=== PATIENT | female | born 1960 | race Caucasian/White ===

== ENCOUNTER 2020-09-22 10:03 | Outpatient (REF) | payer MEDICARE, MEDICAID, SELFPAY | END 2020-09-22 10:04 | disposition home or self-care (01) | LOC: HO.HAP 10:03 | PROVIDERS: PCP Nurse Practitioner Family; Visit Provider Nurse Practitioner Family | DX: Z46.1 Encounter for fitting and adjustment of hearing aid (principal) | CPT/HCPCS: V5266 ==

== ENCOUNTER 2020-11-10 12:58 | Outpatient (REF) | payer MEDICARE, MEDICAID, SELFPAY ==
--- NOTE | ~2020-11-10 | US_ITS ---
EXAMINATION: US RETROPERITONEAL LIMITED (RENAL ONLY) CLINICAL INFORMATION: Calculus of kidney. COMPARISON: Renal ultrasound 10/07/2019 and 08/26/2018 TECHNIQUE: Real-time imaging of the kidneys. FINDINGS: RIGHT KIDNEY: 9.0 x 4.2 x 4.6 cm (SAG x AP x TRV). The kidney is normal in size, contour, and echogenicity. Renal cortical thickness is normal. Lower pole 4 x 3 x 3 mm echogenic focus seen consistent with a stone. No focal parenchymal lesions or hydronephrosis. LEFT KIDNEY: 10.0 x 5.0 x 4.6 cm (SAG x AP x TRV). The kidney is normal in size, contour, and echogenicity. Renal cortical thickness is normal. No renal calculi or hydronephrosis. An upper pole 2.5 x 2.1 x 1.9 cm cyst is noted. No solid mass is seen. US/US renal BI IMPRESSION: 1. Nonobstructing right lower pole renal calculus. 2. Benign left upper pole renal cyst. 3. Findings are not significantly changed when compared to the prior study.
== END 2020-11-10 12:59 | disposition home or self-care (01) ==
LOC: HO.US 12:58
PROVIDERS: PCP Nurse Practitioner Family; Visit Provider Urology
DX: N20.0 Calculus of kidney (principal)
CPT/HCPCS: 76775

== ENCOUNTER → 2020-12-07 15:34 | Outpatient (BNVA) | payer MEDICARE, MEDICAID, SELFPAY | PROVIDERS: Visit Provider Urology | DX: Z13.89 Encounter for screening for other disorder (principal) | CPT/HCPCS: 99212 ==

== ENCOUNTER 2021-06-09 10:28 | Outpatient (REF) | payer MEDICARE, MEDICAID, SELFPAY ==
--- NOTE | ~2021-06-09 | US_ITS ---
EXAMINATION: US RETROPERITONEAL LIMITED (RENAL ONLY) CLINICAL INFORMATION: Calculus of kidney. COMPARISON: Renal ultrasound 11/10/2020 and 10/07/2019. TECHNIQUE: Real-time imaging of the kidneys. FINDINGS: RIGHT KIDNEY: 8.6 x 4.4 x 5.5 cm (SAG x AP x TRV). The kidney is normal in size, contour, and echogenicity. Renal cortical thickness is normal. No focal parenchymal lesions or hydronephrosis. 3 mm nonobstructing calculus in the lower pole. LEFT KIDNEY: 10.1 x 5.2 x 5.0 cm (SAG x AP x TRV). The kidney is normal in size, contour, and echogenicity. Renal cortical thickness is normal. No renal calculi or hydronephrosis. 2.1 cm simple cyst in the left upper kidney. No imaging follow-up is recommended. US/US renal BI IMPRESSION: Unchanged 3 mm nonobstructing calculus in the lower right kidney. No hydronephrosis.
== END 2021-06-09 10:29 | disposition home or self-care (01) ==
LOC: HO.HMGCX 10:28
PROVIDERS: PCP Internal Medicine; Visit Provider Urology
DX: N20.0 Calculus of kidney (principal)
CPT/HCPCS: 76775

== ENCOUNTER → 2021-06-17 09:25 | Outpatient (BNVA) | payer MEDICARE, MEDICAID, SELFPAY | PROVIDERS: PCP Internal Medicine; Visit Provider Urology | DX: R39.15 Urgency of urination (principal); N20.0 Calculus of kidney | CPT/HCPCS: Q3014 ==

== ENCOUNTER 2021-12-08 08:30 | Outpatient (RCR) | payer MEDICARE, MEDICAID, SELFPAY ==
--- NOTE | 2021-10-25 10:30 | PC.NURSE ---
On 10/24/21, spoke with person and they report that they cannot start PHP groups this week due to services. They also indicate that their child has a medical problem and is scheduled for surgery in [place]. She is interested in beginning PHP services the week of 11/22/21. Therefore, we scheduled an intake/assessment on 11/22/2021 @ 11Am to begin admission to [facility]. Madelaine Yost
[2021-11-23 12:39] VITALS: BMI 23.4
--- NOTE | 2021-11-23 13:06 | PC.ADMIT ---
Patient is a 61 year old female who was referred to PHP by Dr Carrasco after consulting with patient regarding TMS treatment. Patient reports struggling with depression with SI denied plan or intent, increased anxiety, and periodic agitation and irritability. Feeling overwhelmed. 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 Reports increase in symptoms in August and September after being dx with Covid in July. Patient reports she had the Covid Vaccine and has been boosted and reports she does not understand how she still got Covid. Patient reports having SI has scared her. Reports protective factors are her 2 nieces who she lives with and has helped to take care of them since infancy. Patient reports she is taking Cymbalta on and off. Last took on Sunday. Medication education provided. Patient also not taking HCTZ and Potassium Citrate consistently. Tracy Anne NP PHP prescriber is aware. Patient is alert and oriented x4. Calm and cooperative. Presented with depressed mood and affect. Denied SI at present. Medications reconciled with patient and patient's pharmacy.
--- NOTE | 2021-11-23 15:09 | P.HPPSP_ITS ---
HPI Date of Service: 11/23/21 Chief Complaint: depression,anxiety Sources of Information: patient interviewed, chart reviewed and crisis/core team assessment reviewed HPI Medical Problems Affecting Mental Status: No Narrative: Patient is a 61-year-old single female, referred to PHP via Dr. León Carrasco at [facility] TMS office. She had presented there for consultation for TMS, due to depressed mood, with worsening symptoms. She had also reported periods of agitation, irritability, feeling overwhelmed, and in despair. Denies any manic symptoms, however has had episodes of experiencing agitated depression, with irritability, anxiety, and insomnia, without any physical hyperactivity. Has had medication trials, without success. Some medications worked for some time, and then would ?stop working . Her primary care provider has kept her on duloxetine 90 mg daily. However, patient states that she takes this medication intermittently, and not on a daily basis. She states that she last took it 3 days ago, and that she has been taking it 3-4 times per week rather than daily. Patient reports being raised in an orphanage until age 13, when she was adopted. 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 She lives with her sister, who has adopted to special needs children that require lot of care. She states that this has caused her stress, and that she feels taken advantage of at times. She reports passive SI at times, when feeling overwhelmed. Patient experienced COVID in July of this year, and soon afterwards noticed an increase in her symptoms of depression. Has multiple medical issues, including diabetes, asthma, Clarisa's, premature atrial contractions, kidney issues. Has cochlear implant. Past Psychiatric History: Medication trials: Wellbutrin, Celexa, Paxil, sertraline, nortriptyline, amitriptyline. Reports did well for years with Wellbutrin and Cymbalta. Currently receives Cymbalta 90 mg daily (not taking consistently). No hx IPLOC, PHP, respite. No current therapist, no psychiatric provider/prescriber. Medical Evaluation Reviewed: Yes [facility] Medical History Asthma BPES syndrome Gastroesophageal reflux disease Hypothyroidism IBS (irritable bowel syndrome) Renal stones Status post placement of bone anchored hearing aid (BAHA) Type II diabetes mellitus Surgical History H/O total hysterectomy History of bilateral knee replacement Family History: Mother history of depression and anxiety. Unclear if this is bio-mother or adoptive mother. Her sister has history of depression Social History: Born to a 16-year-old mother, who placed her up for adoption. Placed at right side. Adopted at age 13. Met developmental milestones as expected, graduated [employer], college. 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 Patient not . Has helped raise her nieces that her sister adopted, they have lived together for many years. Both knees is have special needs, require care. 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 Substance History: Occasional alcohol use, socially. Trauma History: Victim, medical trauma r/t congenital syndrome which has affected facial features and bones. Diagnostics Vital Signs (24Hr): BMI result Body Mass Index 23.4 Meds/Allergies Meds Home Medications Medication Instructions Recorded Confirmed Type atenolol 25 mg tablet 25 mg PO DAILY 06/17/21 11/23/21 History blood sugar diagnostic (FreeStyle #10 ea 06/17/21 History Lite Strips) budesonide-formoterol HFA 160 2 puff inhalation BID 06/17/21 11/23/21 History mcg-4.5 mcg/actuation aerosol inhaler (Symbicort) gabapentin 600 mg tablet 600 mg PO BID 06/17/21 11/23/21 History hydrochlorothiazide 25 mg tablet 25 mg PO BID 06/17/21 History ibandronate 150 mg tablet 150 mg PO QMONTH 06/17/21 11/23/21 History levothyroxine 88 mcg tablet 88 mcg PO DAILY 06/17/21 11/23/21 History (Synthroid) montelukast 10 mg tablet 10 mg PO DAILY 06/17/21 11/23/21 History cholecalciferol (vitamin D3) 25 25 mcg PO DAILY 11/23/21 11/23/21 History mcg (1,000 unit) tablet (Vitamin D3) famotidine 20 mg tablet 20 mg PO BID 11/23/21 11/23/21 History metformin 500 mg tablet 500 mg PO BID 11/23/21 11/23/21 History potassium citrate 10 mEq (1,080 10 meq PO DAILY 11/23/21 History mg) tablet,extended release potassium citrate 10 mEq (1,080 20 meq PO BEDTIME 11/23/21 11/23/21 History mg) tablet,extended release Allergies Allergies Allergy/AdvReac Type Severity Reaction Status Date / Time acetaminophen [Percocet] Allergy Unknown hives Verified 06/17/21 09:27 codeine Allergy Unknown hives Verified 06/17/21 09:27 hydrocodone [Vicodin] Allergy Unknown hives Verified 06/17/21 09:27 levofloxacin [Levaquin] Allergy Unknown hives Verified 06/17/21 09:27 morphine Allergy Unknown Unknown Verified 06/17/21 09:27 oxycodone [Percocet] Allergy Unknown hives Verified 06/17/21 09:27 Sulfa (Sulfonamide Allergy Unknown hives Verified 06/17/21 09:27 Antibiotics) bandaging tape Allergy Unknown redness Uncoded 06/17/21 09:27 and itching Tylox Allergy Unknown hives Uncoded 06/17/21 09:27 Mental Status Exam Mental Status Exam Narrative: Well-developed, well-nourished female, in NAD. Appears stated age. No perceptual disturbances noted. No abnormal movements, tics or tremors. Ambulation not observed. Patient was fully attentive during interview. Patient Appearance: Appropriate Patient Orientation: Person, Place, Time and Situation Level of Consciousness: Appropriate Patient Behavior: Appropriate, Guarded and Good Eye Contact Mood Description: Depressed and Anxious Affect Description: Constricted, Depressed and Anxious Patient Cognition Impaired: No Ability to Follow Directions: Good Speech Pattern: Clear, Appropriate and Coherent Memory Description: Intact Hallucinations: None Delusions: Not Present Thought Content: positive for Intact and positive for Suicidal Ideation (Passive, no intent or plan.) Depressive Symptoms: Increased Anxiety, Increased Irritability, Difficulty Sleeping, Loss of Int. in Activity, Hopelessness and Thoughts of /Suicide Judgement: Fair Telehealth Telehealth Location of provider rendering services: practice address Location of patient: address on file Patient Identification confirmed using: Name, : Yes Telehealth method: video Patient verbally consented to treatment: Yes Patient verbally consented to billing insurance company: Yes Patient informed of any privacy concerns related to visit: Yes Minutes spent on Phone/Video with Pt.: 45 Assessment & Plan Assessment & Plan (1) Major depressive disorder, recurrent severe without psychotic features: Status: Acute Code(s): F33.2 - Major depressive disorder, recurrent severe without psychotic features Assessment and Plan: The patient has experienced symptoms of depression and anxiety since college. Has tried multiple medications. Reports that some medications have worked for some time, and then apparently stopped working. Reports sensitivity to med ications, with multiple side effects at times. Currently has medical concerns,including post COVID, diabetes, asthma, Clarisa's, kidney issues, premature atrial contractions, which she states are due to an asthma medication. She had consultation in October of this year at [facility] for TMS. At that time she was referred to this program, with suggestion of completing this program prior to initiate being TMS therapy. She reports that she has not been taking prescribe Cymbalta daily, but rather 3-4 times per week. Last dose was taken on 11/20/2021. A discussion ensued regarding medication options, risks and benefits, alternatives. Patient is agreeable to taking Cymbalta 90 mg daily for the next 7 days. At that time during our next visit, we can assess together whether or not she is to remain at 90 mg daily, or possible dose increase to 120 mg daily. At this time, we will hold off on adding any new medications, due to sensitivity to side effects, and uncertainty as to efficacy of Cymbalta, as he has not been taking daily. She was in complete agreement with this plan. She does have some passive SI, but reports that she has no intent or plan in any way whatsoever. She was agreeable to calling crisis and notifying us if this changes in any way. No safety concerns at this time. (2) ROSANA (generalized anxiety disorder): Status: Acute Code(s): F41.1 - Generalized anxiety disorder Plan 1. Continue with current [facility] plan of care. 2. Continue with current medication regimen. Seven day supply of Cymbalta 90 mg sent to pharmacy. 3. Follow-up as per protocol. Patient educated on: diagnosis, medication risk/benefits and therapeutic strategies Informed Consent: understands Reason for continued partial hosp. stay Substantial Risk for: harm to self, inability to function, rapid decompensation and med/psych decompensation Certification I certify that partial hospital treatment is medically necessary due to the symptoms and problems resulting from the patient's mental illness and the failure to treat the patient at the partial hospital level of care would likely result in the patient requiring inpatient psychiatric care which could not be prevented at a less intensive level of care.
--- NOTE | 2021-11-24 16:34 | PC.NURSE ---
Case opened in treatment team.
--- NOTE | 2021-11-25 15:58 | PC.NURSE ---
I called and spoke to pt. Reviewed treatment plan and discussed aftercare plans and tentative discharge date (12/08/2021). Pt reported feeling better emotionally since starting the program, and said she fallon been suing learned coping skills with some success.
--- NOTE | 2021-11-29 12:09 | P.PNPSP_ITS ---
Subjective Subjective Date of Service: 11/29/21 Reason For Visit: depression,anxiety Medical Problems Affecting Mental Status: No Interim History: Describes mood as ?relaxed ?. No SI/HI, no safety concerns. Feels some improvement regarding depression and anxiety symptoms, has taken duloxetine daily as prescribed. Less irritable. Finding program groups to be helpful. Medication Compliance: Yes Side effects from medications: No Attending Groups: Yes Review of Systems Acute medical concerns: No Medical Review of Systems: unchanged Review of Systems Review of Systems Yes all other systems are reviewed and are negative Constitutional: Reports no additional constitutional complaints Mental Status Exam Mental Status Exam Narrative: NAD Patient Appearance: Appropriate Patient Orientation: Person, Place, Time and Situation Level of Consciousness: Appropriate Patient Behavior: Appropriate, Cooperative and Good Eye Contact Mood Description: Calm Affect Description: Appropriate, Depressed (appears improving) and Anxious (lessened ) Patient Cognition Impaired: No Ability to Follow Directions: Excellent Speech Pattern: Clear, Appropriate and Coherent Memory Description: Intact Hallucinations: None Delusions: Not Present Thought Content: positive for Intact Depressive Symptoms: Increased Anxiety and Loss of Int. in Activity Judgement: Fair Diagnostics Vital Signs (24Hr): BMI result Body Mass Index 23.4 Assessment & Plan Assessment & Plan (1) Major depressive disorder, recurrent severe without psychotic features: Status: Acute Code(s): F33.2 - Major depressive disorder, recurrent severe without psychotic features Assessment and Plan: Describes mood as ?relaxed ?. No SI/HI, no safety concerns. Feels some improvement regarding depression and anxiety symptoms, has taken duloxetine daily as prescribed. Had a birthday libertarian for nieces over the weekend, says was able to relax and enjoy the day. Says was able to shrug off any negative comments, and not take them personally. Working to not worry about the little things . Less irritable, states I am not agitated like I was was . Finding program groups to be helpful. We discussed current dose of duloxetine. Discussed keeping it at this dose for now, as she had not been taking it consistently up until last week. She is in agreement to keep it at this dose for time being. No side effects reported. She reports that she has enough duloxetine at home, does not need a refill yet for the 90 mg daily. She says that she will be seeing a psychiatric provider after leaving program, then possibly will need a script upon discharge from here so that she does not run out prior to that appointment. (2) ROSANA (generalized anxiety disorder): Status: Acute Code(s): F41.1 - Generalized anxiety disorder Plan 1. Continue with current [facility] plan of care. 2. Patient to continue with current medication regimen as prescribed. Has supply at home, does not need a refill yet of duloxetine. 3. Follow-up as per protocol. Patient educated on: diagnosis, medication risk/benefits and therapeutic strategies Informed Consent: understands Reason for contiued partial hosp. stay Substantial Risk for: inability to function, rapid decompensation and med/psych decompensation Certification I certify that partial hospital treatment is medically necessary due to the symptoms and problems resulting from the patient's mental illness and the failure to treat the patient at the partial hospital level of care would likely result in the patient requiring inpatient psychiatric care which could not be prevented at a less intensive level of care. I spent minutes with the patient and/or on the patient floor today, greater than?50% of which was spent counseling/coordinating care. Discharge Plan Discharge Attending provider: Honorio Escobedo Medications: New duloxetine [Cymbalta] 60 mg capsule,delayed release(DR/EC) 60 mg PO DAILY 7 Days Qty: 7 0RF duloxetine [Cymbalta] 30 mg capsule,delayed release(DR/EC) 30 mg PO DAILY 7 Days Qty: 7 0RF Rx Instructions: take duloxetine 30mg daily with duloxetine 60mg daily, for TOTAL daily dose of 90mg. No Action oxybutynin chloride 5 mg tablet extended release 24hr 5 mg PO DAILY 30 Days Qty: 90 3RF metformin 500 mg Tablet 500 mg PO BID famotidine 20 mg Tablet 20 mg PO BID potassium citrate 10 mEq (1,080 mg) Tablet Extended Release 10 meq PO DAILY Label Comments: Patient stated she has been missing doses however is still taking this medication. potassium citrate 10 mEq (1,080 mg) Tablet Extended Release 20 meq PO BEDTIME Label Comments: patient stated she takes 1080 mg 1 tab in the am and 2 tabs at HS. Does not take consistently. Medication education provided. cholecalciferol (vitamin D3) [Vitamin D3] 25 mcg (1,000 unit) Tablet 25 mcg PO DAILY montelukast 10 mg tablet 10 mg PO DAILY levothyroxine [Synthroid] 88 mcg tablet 88 mcg PO DAILY Label Comments: Patient reports she takes a 1/2 tab on Sundays. Rx Instructions: Takes 1/2 tab on Sunday. gabapentin 600 mg tablet 600 mg PO BID budesonide-formoterol [Symbicort] 160-4.5 mcg/actuation HFA aerosol inhaler 2 puff inhalation BID ibandronate 150 mg tablet 150 mg PO QMONTH atenolol 25 mg tablet 25 mg PO DAILY (DME) FreeStyle Lite Strips Strip See Rx Instructions Not Applicable .MEDSUPPLY Qty: 10 Rx Instructions: As directed hydrochlorothiazide 25 mg tablet 25 mg PO BID Label Comments: Patient stated she is on HCTZ 50 mg daily. Last filled 2020 for 3 month supply HCTZ 25 mg BID. Patient reports she has not been taking consisitantly. Telehealth Telehealth Location of provider rendering services: practice address Location of patient: address on file Patient Identification confirmed using: Name, : Yes Telehealth method: video Patient verbally consented to treatment: Yes Patient verbally consented to billing insurance company: Yes Patient informed of any privacy concerns related to visit: Yes Minutes spent on Phone/Video with Pt.: 15
--- NOTE | 2021-11-29 13:00 | PC.NURSE ---
At pt's request, I completed and emailed a referral for her to obtain services at [facility].
--- NOTE | 2021-12-07 13:25 | PC.NURSE ---
I emailed Melvin and central intake at [facility] to inquire about intake times for pt, as she is discharging tomorrow and I still haven't heard back from them.
--- NOTE | 2021-12-08 13:57 | PC.NURSE ---
Patient discharged from [facility] today. Patient reports much improvement in her symptoms compared to when she started the program. Reports feeling much calmer and less angry. Reports she has learned a, tremendous amount . Reviewed patient medications with patient. Appears to know what her medications are for and when to take them. Reports taking her medications as prescribed including taking 90 mg of Cymbalta daily. Reports she does not need a refill of Cymbalta prior to her new prescriber appointment on 12/27/21 as she has, plenty .
== END 2021-12-08 23:59 | disposition home or self-care (01) ==
LOC: HO.PHPA 08:30
PROVIDERS: Visit Provider Psychiatry & Neurology Psychiatry
DX: F33.2 Major depressive disorder, recurrent severe without psychotic features (principal); F41.1 Generalized anxiety disorder; Z79.899 Other long term (current) drug therapy
CPT/HCPCS: 90791; 90853

== ENCOUNTER 2022-06-06 07:57 | Outpatient (REF) | payer MEDICARE, MEDICAID, SELFPAY ==
--- NOTE | ~2022-06-06 | US_ITS ---
EXAMINATION: US RETROPERITONEAL LIMITED (RENAL ONLY) CLINICAL INFORMATION: Calculus of kidney. COMPARISON: Renal ultrasound 06/09/2021 and 11/10/2020. TECHNIQUE: Real-time imaging of the kidneys. FINDINGS: RIGHT KIDNEY: 8.8 x 4.6 x 4.2 cm (SAG x AP x TRV). The kidney is normal in size, contour, and echogenicity. Renal cortical thickness is normal. A 6 mm lower pole nonobstructing calculus is present, measuring 3 mm on 06/09/2021. No focal parenchymal lesions or hydronephrosis. LEFT KIDNEY: 9.5 x 5.4 x 3.8 cm (SAG x AP x TRV). The kidney is normal in size, contour, and echogenicity. Renal cortical thickness is normal. No renal calculi or hydronephrosis. An upper pole 2.7 cm benign simple cyst is present. US/US renal BI IMPRESSION: 1. A 6 mm nonobstructing right lower pole calculus. 2. Benign Bosniak class I left upper pole renal cyst. No followup is necessary.
== END 2022-06-06 07:58 | disposition home or self-care (01) ==
LOC: HO.US 07:57
PROVIDERS: PCP Internal Medicine; Visit Provider Urology
DX: N20.0 Calculus of kidney (principal)
CPT/HCPCS: 76775

== ENCOUNTER → 2022-06-16 11:19 | Outpatient (BNVA) | payer MEDICARE, MEDICAID, SELFPAY | PROVIDERS: PCP Internal Medicine; Visit Provider Urology | DX: N20.0 Calculus of kidney (principal); R39.15 Urgency of urination | CPT/HCPCS: Q3014 ==

== ENCOUNTER 2022-11-16 14:15 | Outpatient (REF) | payer MEDICARE, MEDICAID, SELFPAY | END 2022-11-16 14:16 | disposition home or self-care (01) | LOC: HO.HAP 14:15 | PROVIDERS: Visit Provider Internal Medicine | DX: Z46.1 Encounter for fitting and adjustment of hearing aid (principal); H90.3 Sensorineural hearing loss, bilateral | CPT/HCPCS: V5266 ==

== ENCOUNTER 2023-01-12 13:32 | Outpatient (AMB) | payer MEDICARE, MEDICAID, SELFPAY ==
--- NOTE | 2023-01-12 13:39 | MHC.OFFVIS ---
Intake Intake Visit Reasons: 6m follow up/PVR Intake Note: Patient presents today for follow up PVR/renal stones/urgency Urology Med: potassium, solifenacin Blood Thinner: None PVR: 11ml's Legislative Aide Required: No Accompanied by: Self / Same As Patient Allergies acetaminophen [Percocet] Allergy (Unknown, Verified 01/13/23 08:07) hives codeine Allergy (Unknown, Verified 01/13/23 08:07) hives hydrocodone [Vicodin] Allergy (Unknown, Verified 01/13/23 08:07) hives levofloxacin [Levaquin] Allergy (Unknown, Verified 01/13/23 08:07) hives morphine Allergy (Unknown, Verified 01/13/23 08:07) Unknown oxycodone [Percocet] Allergy (Unknown, Verified 01/13/23 08:07) hives Sulfa (Sulfonamide Antibiotics) Allergy (Unknown, Verified 01/13/23 08:07) hives bandaging tape Allergy (Unknown, Uncoded 01/13/23 08:07) redness and itching Tylox Allergy (Unknown, Uncoded 01/13/23 08:07) hives myrbetriq Adverse Reaction (Severe, Uncoded 01/13/23 08:07) Unknown tolterodine Adverse Reaction (Severe, Uncoded 01/13/23 08:07) Blurry Vision Medication List - Last Reconciled 01/13/23 by SHARDA Palafox-CHAO albuterol sulfate 90 mcg/actuation 2 puffs inhalation QID PRN aripiprazole 5 mg PO DAILY atenolol 25 mg PO DAILY atorvastatin 40 mg PO DAILY blood sugar diagnostic (FreeStyle Lite Strips) As directed budesonide-formoterol 160-4.5 mcg/actuation (Symbicort) 2 puffs inhalation BID cholecalciferol (vitamin D3) (Vitamin D3) 25 mcg PO DAILY diclofenac sodium 75 mg PO DAILY duloxetine (Cymbalta) 30 mg PO DAILY 7 days duloxetine (Cymbalta) 60 mg PO DAILY 7 days famotidine 20 mg PO BID gabapentin 600 mg PO BID hydrochlorothiazide 25 mg PO BID ibandronate 150 mg PO QMONTH levothyroxine (Synthroid) 88 mcg PO DAILY metformin 500 mg PO BID montelukast 10 mg PO DAILY potassium citrate ER 10 mEq PO BID 90 days solifenacin (Vesicare) 10 mg PO DAILY 90 days HPI HPI Comments History of Present Illness Details Lucy is a very pleasant 62 year old female patient of Dr. Limon. She has a past medical history of asthma, BPES syndrome, GERD, hypothyroidism, IBS, depression, renal stones, and type 2 diabetes. She presents to the office today for follow-up of her ongoing urinary issues, nephrolithiasis, and renal cyst. In discussion with the patient today she reports to be doing and feeling well. She reports to be taking VESIcare 10 mg daily with somewhat good effect. However, she does report having 1-2 incontinent episodes every 1-2 months. She describes urinary urgency with episodes of incontinence if not near a bathroom. She otherwise denies hematuria, dysuria, foul smelling urine, changes to urinary stream, flank pain, fever, and or chills. She reports to be getting up 1 time per night to void and at times not at all. She has a history of failed oral therapies such as oxybutynin, tolterodine, and Myrbetriq. She reports compliance with her potassium citrate for her history of nephrolithiasis. She reports last A1c with PCP noted to be less than 6.0. In office urinalysis results reviewed with the patient today. PVR 11 mL. Discussed continuation of VESIcare verses trial Gemtesa. Discussed bladder triggers/irritants. She otherwise offers no issues or concerns at this time. PREVIOUS OFFICE NOTE: Nephrolithiasis History of small right lower pole stone Stable for number of years - minimal symptoms Current therapy - potassium citrate 10 mEq p.o. b.i.d. Imaging - 06/25 renal ultrasound 3 mm right lower pole stone, left small cyst stable - 06/26 renal ultrasound 6 mm right lower pole stone, left 2.4 cm cyst Therapeutic plan - Continue fluid intake - Interval imaging Urinary urgency Has been on number prior medications Not tolerate Myrbetriq and oxybutynin 5 mg ER PFSH Medical History Asthma BPES syndrome Gastroesophageal reflux disease Hypothyroidism IBS (irritable bowel syndrome) Major depressive disorder, recurrent severe without psychotic features Renal stones Status post placement of bone anchored hearing aid (BAHA) Type II diabetes mellitus Urgency of urination Surgical History H/O total hysterectomy History of bilateral knee replacement Social History Household Members: Family Household Members Other:: sister and two nieces Housing: Apartment Review of Systems Const Reports as per HPI Eyes Reports as per HPI ENT Reports no additional complaints Card Reports no additional complaints Resp Reports as per HPI GI Reports as per HPI Reports as per HPI Musc Reports no additional complaints Neuro Reports no additional complaints Psych Reports as per HPI Endo Reports as per HPI Physical Exam Const General: cooperative, comfortable, no acute distress, well developed, alert and awake Orientation/consciousness: patient oriented x3 Limitations: no limitations HEENT Head: Yes normal to inspection, Yes normocephalic and Yes atraumatic Ears: hearing grossly normal bilaterally Neck Neck: Yes normal visual inspection and Yes trachea midline Chest Chest palpation & inspection: normal inspection of the chest Resp Effort & Inspection: normal respiratory effort and able to speak in complete sentences Cardio Rate: regular rate GI Inspection: Yes normal to inspection General: Yes no CVA tenderness Back/Spine/Pelvis Back: no CVA tenderness Skin General skin exam: no rashes or lesions noted Neuro General: patient oriented x3 Extrem General: Yes normal to inspection Psych Appearance: grossly normal and well kempt Mental Status: mental status grossly normal Speech and movement: Normal speech and movement present and Clear speech present Affect: normal affect Attitude: cooperative Thought process: Normal thought process present Thought content: Normal thought content present Insight: Fair insight present (Psych) Judgement: Fair judgement present (Psych) Office Procedures Post Void Residual Post Residual Void Post Void Residual (PVR): 11 56843-[id number] Void Residual by ultrasound Results AMB Urinalysis, Automated UA Leukoctes 0 Steve/uL Last Edit by Maura Layne on 01/12/23 14:08 UA Nitrite Last Edit by Maura Layne on 01/12/23 14:08 UA Urobilinogen 0.2 mg/dL Last Edit by Maura Layne on 01/12/23 14:08 UA Protein 0 mg/dL Last Edit by Maura Layne on 01/12/23 14:08 UA pH 6.0 Last Edit by Maura Layne on 01/12/23 14:08 UA Blood 0 Kristian/uL Last Edit by Maura Layne on 01/12/23 14:08 UA Specific [place] 1.020 Last Edit by Maura Layne on 01/12/23 14:08 UA Ketone Last Edit by Maura Layne on 01/12/23 14:08 UA Bilirubin 0 mg/dL Last Edit by Maura Layne on 01/12/23 14:08 UA Glucose 0 mg/dL Last Edit by Maura Layne on 01/12/23 14:08 Results Reviewed Results Reviewed: Laboratory Last Values Urine pH (Auto) 6.0 01/12/23 13:41 Specific [place] (Auto) 1.020 01/12/23 13:41 Urine Protein (Auto) 0 mg/dL 01/12/23 13:41 Glucose (UA)(Auto) 0 mg/dL 01/12/23 13:41 Urine Blood (Auto) 0 Kristian/uL 01/12/23 13:41 Urine Bilirubin (Auto) 0 mg/dL 01/12/23 13:41 Urine Urobilinogen (Auto) 0.2 mg/dL 01/12/23 13:41 Leukocyte Esterase (Auto) 0 Steve/uL 01/12/23 13:41 Assessment & Plan Assessment & Plan (1) Bilateral renal stones: Code(s): N20.0 - Calculus of kidney (2) Urgency of urination: Code(s): R39.15 - Urgency of urination (3) Renal cyst: Code(s): N28.1 - Cyst of kidney, acquired Plan In office urinalysis results reviewed with the patient today; as noted above. PVR 11 mL. Discussed obtaining retroperitoneal ultrasound for further assessment evaluation. Discussed importance of managing diabetes for improvement in urinary symptoms as well as overall health and well-being. Discussed trial of Gemtesa versus continuation of VESIcare. Patient with previous failed oral OAB medications. Patient would like to continue with VESIcare; prescription provided. Discussed in office cystoscopy for further assessment evaluation. Discussed bladder triggers/irritants. Follow-up in office cystoscopy Orders: Orders US retroperitoneal comp 01/12/23 N20.0 - Calculus of kidney, N28.1 - Cyst of kidney, acquired, R39.15 - Urgency of urination AMB Urinalysis Automated 01/12/23 Z13.9 - Encounter for screening, unspecified AMB Post Void Residual by ultrasound 01/12/23 R39.15 - Urgency of urination Medications: Refilled solifenacin (Vesicare) 10 mg PO DAILY 90 days 90 tabs 3RF Patient Instructions: The patient had an opportunity to ask questions regarding the treatment plan. All questions were answered. Physical exam, labs, and imaging were discussed and reviewed in detail. As well as risks, benefits, and discussion of treatment choices. No major barriers to understanding were identified. The patient expressed understanding and agreement with the above treatment plan. The patient was made aware they should contact our office by phone for worsening of their current condition, the appearance of new symptoms, or with any questions or concerns. Compliance is encouraged with any medications and follow up testing that is ordered. It is a privilege to be allowed the opportunity to participate in? your urological care.? Again, if you have any questions or concerns If you have any questions or concerns please do not hesitate to contact me. The office is [phone]. This note is constructed using voice recognition software. While every effort has been made to ensure accuracy functional consultant errors may have been included. Yours sincerely, CONNIE Palafox Coding Level of Care Code Est Pt Level 3 (06543) Diagnoses Bilateral renal stones N20.0 Urgency of urination R39.15 Renal cyst N28.1 CPT Codes Post Residual Void - PVR CPT Code: 46298-Jtrd Void Residual by ultrasound ([id number])
== END 2023-01-12 14:39 | disposition home or self-care (01) ==
PROVIDERS: Visit Provider Nurse Practitioner Family
DX: N20.0 Calculus of kidney (principal); R39.15 Urgency of urination; N28.1 Cyst of kidney, acquired
CPT/HCPCS: 99213

== ENCOUNTER → 2023-01-12 13:32 | Outpatient (BNVA) | payer MEDICARE, MEDICAID, SELFPAY | PROVIDERS: Visit Provider Nurse Practitioner Family | DX: N28.1 Cyst of kidney, acquired (principal); N20.0 Calculus of kidney; R39.15 Urgency of urination; Z79.899 Other long term (current) drug therapy | CPT/HCPCS: 51798; 99212 ==

== ENCOUNTER 2023-02-12 10:21 | Outpatient (REF) | payer MEDICARE, MEDICAID, SELFPAY ==
--- NOTE | ~2023-02-12 | US_ITS ---
EXAMINATION: US RETROPERITONEAL COMPLETE (RENAL) CLINICAL INFORMATION: Calculus of kidney. COMPARISON: Ultrasound retroperitoneal limited (renal only) 06/06/2022 and 06/09/2021. TECHNIQUE: Real-time imaging of the kidneys and bladder. FINDINGS: RIGHT KIDNEY: 9.3 x 4.1 x 4.7 cm (SAG x AP x TRV). The kidney is normal in size, contour, and echogenicity. Renal cortical thickness is normal. No focal parenchymal lesions. 6 mm nonobstructing lower pole renal stone, previously 6 mm not significantly changed. Trace right hydronephrosis new from prior. LEFT KIDNEY: 9.1 x 4.8 x 3.5 cm (SAG x AP x TRV). The kidney is normal in size, contour, and echogenicity. Renal cortical thickness is normal. No renal calculi or hydronephrosis. Benign-appearing renal cyst measuring 2.7 cm. No follow up imaging is recommended. BLADDER: Well distended and normal. Bilateral ureteral jets are demonstrated. Prevoid bladder volume is 345.4 mL. Postvoid bladder volume is 45.7 mL. US/US retroperitoneal comp IMPRESSION: 1. Trace right hydronephrosis new from prior. 2. Stable 6 mm nonobstructing right lower pole renal stone.
== END 2023-02-12 10:22 | disposition home or self-care (01) ==
LOC: HO.US 10:21
PROVIDERS: PCP Internal Medicine; Visit Provider Nurse Practitioner Family
DX: N20.0 Calculus of kidney (principal); N28.1 Cyst of kidney, acquired; R39.15 Urgency of urination
CPT/HCPCS: 76770

== ENCOUNTER 2023-02-14 11:41 | Outpatient (REF) | payer MEDICARE, MEDICAID, SELFPAY ==
[2023-02-14 13:16] LABS: Appearance Urine Clear; Color Urine Yellow; Glucose Urine UA Negative (Negative); Leukocyte Esterase Urine Negative (Negative); Nitrite Urine Negative (Negative); Urine Blood Negative (Negative); Urine Ketones Negative (Negative); Urine Protein Negative (Neg-Trace)
[2023-02-14 13:19] LABS: Bacteria Urine None Seen (None Seen); Hyaline Casts Urine 0-2 /LPF (0-2); RBC Urine 0-2 /HPF (0-2); Squamous Epithelial Cell Urine 0-2 /HPF (0-2); WBC Urine 0-5 /HPF (0-5)
== END 2023-02-14 11:42 | disposition home or self-care (01) ==
LOC: HO.LAB 11:41
PROVIDERS: PCP Internal Medicine; Visit Provider Nurse Practitioner Family
DX: N20.0 Calculus of kidney (principal)
CPT/HCPCS: 81001; 87086

== ENCOUNTER 2023-02-16 08:27 | Outpatient (AMB) | payer MEDICARE, MEDICAID, SELFPAY ==
--- NOTE | 2023-02-16 08:29 | A.OFFVIS_ITS ---
Intake Intake Visit Reasons: cysto Intake Note: Pt seen in office today for cystoscopy procedure Dental Ceramist Assistant Required: No Accompanied by: Self / Same As Patient Allergies acetaminophen [Percocet] Allergy (Unknown, Verified 02/16/23 08:40) hives codeine Allergy (Unknown, Verified 02/16/23 08:40) hives hydrocodone [Vicodin] Allergy (Unknown, Verified 02/16/23 08:40) hives levofloxacin [Levaquin] Allergy (Unknown, Verified 02/16/23 08:40) hives morphine Allergy (Unknown, Verified 02/16/23 08:40) Unknown oxycodone [Percocet] Allergy (Unknown, Verified 02/16/23 08:40) hives Sulfa (Sulfonamide Antibiotics) Allergy (Unknown, Verified 02/16/23 08:40) hives bandaging tape Allergy (Unknown, Uncoded 02/16/23 08:40) redness and itching Tylox Allergy (Unknown, Uncoded 02/16/23 08:40) hives myrbetriq Adverse Reaction (Severe, Uncoded 02/16/23 08:40) Unknown tolterodine Adverse Reaction (Severe, Uncoded 02/16/23 08:40) Blurry Vision Medication List - Last Reconciled 02/16/23 by Padmini Buenrostro MD albuterol sulfate 90 mcg/actuation 2 puffs inhalation QID PRN amoxicillin-pot clavulanate 500-125 mg (Augmentin) 1 tab PO BID aripiprazole 5 mg PO DAILY atenolol 25 mg PO DAILY atorvastatin 40 mg PO DAILY blood sugar diagnostic (FreeStyle Lite Strips) As directed budesonide-formoterol 160-4.5 mcg/actuation (Symbicort) 2 puffs inhalation BID cholecalciferol (vitamin D3) (Vitamin D3) 25 mcg PO DAILY diclofenac sodium 75 mg PO DAILY duloxetine (Cymbalta) 30 mg PO DAILY 7 days duloxetine (Cymbalta) 60 mg PO DAILY 7 days famotidine 20 mg PO BID gabapentin 600 mg PO BID hydrochlorothiazide 25 mg PO BID ibandronate 150 mg PO QMONTH levothyroxine (Synthroid) 88 mcg PO DAILY metformin 500 mg PO BID montelukast 10 mg PO DAILY potassium citrate ER 10 mEq PO BID 90 days solifenacin (Vesicare) 10 mg PO DAILY 90 days HPI HPI Comments History of Present Illness Details Lucy is a 62-year-old female who presents today to the office for a follow-up. 02/16/2023? She is followed today for cystoscopy procedure. She has seen Nurse Practitioner Giovana Gonzales on 01/12/2023 for PVR. The patient was advised to follow-up in office Cystoscopy during that time. She mentions having right flank pain. She rates that pain as 5 on a scale of 1/10. She had lithotripsy in the past for the history of kidney stones in the past. Patient has also had Cystoscopy procedure in the past. She has been taking potassium citrate 10 mEq twice a day and Vesicare 10 mg daily. I reviewed the retroperitoneum US results from 02/12/2023 revealed trace right hydronephrosis new from prior. Stable 6 mm nonobstructing right lower pole renal stone. Cystoscopy procedure: Consent was obtained to perform cystoscopy procedure. The patient was provided naproxen 500 mg, and Macrobid 100 mg x 1 dose pre- procedure today. Cystoscopy findings: suspicious bladder lesion found. Risks and benefits of right ESWL procedure was discussed with the patient. I have discussed treatment with right ESWL, discussed risks including but not limited to, blood in the urine, bruising to the skin, bleeding, possible need for another procedure if a stone fragment obstructs the ureter while passing, possible need to repeat procedure if stone is not completely fragmented. Plan: Right ESWL was discussed to be scheduled. Augmentin 500 mg was ordered for 7 days. [facility] Medical History Status post placement of bone anchored hearing aid (BAHA) IBS (irritable bowel syndrome) BPES syndrome Asthma Major depressive disorder, recurrent severe without psychotic features Gastroesophageal reflux disease Hypothyroidism Type II diabetes mellitus Urgency of urination Renal stones Surgical History History of bilateral knee replacement H/O total hysterectomy Social History Household Members: Family Household Members Other:: sister and two nieces Housing: Apartment Review of Systems Const All systems reviewed & are unremarkable except as noted in HPI and below Reports no additional complaints Eyes Reports no additional complaints ENT Reports no additional complaints Card Denies dyspnea Resp Denies cough and Denies dyspnea GI Reports no additional complaints Reports no additional complaints Musc Reports no additional complaints Skin/Breast Denies rash and Denies unusual bruising Neuro Reports no additional complaints Psych Reports no additional complaints Endo Reports no additional complaints Ranjith/Lymph Reports no additional complaints Aller/Immun Reports no additional complaints Office Procedures Cystoscopy Consent Discussed risk and benefit or proposed procedure with the patient. Information consent for procedure given to the patient. Discussed technical aspects, risks, benefits and alternatives in full. Addressed all of the patient's questions and concerns regarding the procedure. The patient demonstrated knowledge and understanding. They wish to proceed with this procedure. Preparation The patient was prepped in the usual manner. A furnace feeder was present and in the room. Genitalia was prepped with betadine solution in a sterile manner. Lidocaine Jelly 2% was placed into the urethra and 16Fr flexible Olympus cystoscope was inserted into the meatus after adequate lubrication. Procedure Time out per protocol performed. Bladder Inspection Bladder Inspection: The bladder was inspected in its entirety with utilization retroflexion displaying: Tumor(s): none visualized Trabeculation: moderate Mucosal Erthema: N/A Orifices: normal shape and position Urethra: normal Cystoscopy findings: WNL, no suspicious bladder lesions visualized [id number] DISPOSABLE SCOPE URO-G FLEXIBLE SCOPE Procedure code (CPT) selection complete Office Meds lidocaine HCl 2 % mucosal jelly in applicator Performing Provider: Padmini Buenrostro MD Performing Location[facility] Documented (not given) by: Padmini Buenrostro MD on 02/16/23 09:32 Dose Route Admin Location Dispensed Lot Number Expiration Date [facility] [employer] 10 mL intra-urethral mL nitrofurantoin monohydrate/macrocrystals 100 mg capsule Performing Provider: Padmini Buenrostro MD Performing Location: [facility] Documented (not given) by: Padmini Buenrostro MD on 02/16/23 09:32 2 Dose Route Admin Location Dispensed Lot Number Expiration Date [facility] [employer] 100 mg PO cap naproxen 500 mg tablet Performing Provider: Padmini Buenrostro MD Performing Location: [facility] Documented (not given) by: Padmini Buenrostro MD on 02/16/23 09:32 Dose Route Admin Location Dispensed Lot Number Expiration Date [facility] [employer] 500 mg PO tab Results AMB Urinalysis, Automated UA Leukoctes 0 Steve/uL Last Edit by MAHSA Cruz on 02/16/23 08 :46 UA Nitrite Negative Last Edit by MAHSA Cruz on 02/16/23 08: 46 UA Urobilinogen 0.2 mg/dL Last Edit by MAHSA Cruz on 3 08:46 UA Protein 15 mg/dL Last Edit by MAHSA Cruz on 02/16/23 08:4 6 UA pH 6.0 Last Edit by MAHSA Cruz on 02/16/23 08:46 UA Blood 0 Kristian/uL Last Edit by MAHSA Cruz on 02/16/23 08:46 UA Specific [place] 1.020 Last Edit by MAHSA Cruz on 08:46 UA Ketone Negative Last Edit by MAHSA Cruz on 02/16/23 08:4 6 UA Bilirubin 0 mg/dL Last Edit by MAHSA Cruz on 02/16/23 08: 46 UA Glucose 0 mg/dL Last Edit by MAHSA Cruz on 02/16/23 08:46 Results Reviewed Results Reviewed: Laboratory Last Values Urine pH (Auto) 6.0 02/16/23 08:43 Specific [place] (Auto) 1.020 02/16/23 08:43 Urine Protein (Auto) 15 mg/dL 02/16/23 08:43 Glucose (UA)(Auto) 0 mg/dL 02/16/23 08:43 Urine Ketones (Auto) Negative 02/16/23 08:43 Urine Blood (Auto) 0 Kristian/uL 02/16/23 08:43 Urine Nitrite (Auto) Negative 02/16/23 08:43 Urine Bilirubin (Auto) 0 mg/dL 02/16/23 08:43 Urine Urobilinogen (Auto) 0.2 mg/dL 02/16/23 08:43 Leukocyte Esterase (Auto) 0 Steve/uL 02/16/23 08:43 Date of Service: 02/12/23 EXAMINATION:? US RETROPERITONEAL COMPLETE (RENAL) CLINICAL INFORMATION: Calculus of kidney. COMPARISON:? Ultrasound retroperitoneal limited (renal only) 06/06/2022 and 06/09/2021. FINDINGS: RIGHT KIDNEY: 9.3 x 4.1 x 4.7 cm (SAG x AP x TRV). The kidney is normal in size, contour, and echogenicity. Renal cortical thickness is normal. No focal parenchymal lesions. 6 mm nonobstructing lower pole renal stone, previously 6 mm not significantly changed. Trace right hydronephrosis new from prior. LEFT KIDNEY: 9.1 x 4.8 x 3.5 cm (SAG x AP x TRV). The kidney is normal in size, contour, and echogenicity. Renal cortical thickness is normal. No renal calculi or hydronephrosis. Benign-appearing renal cyst measuring 2.7 cm. No follow up imaging is recommended. BLADDER: Well distended and normal. Bilateral ureteral jets are demonstrated. Prevoid bladder volume is 345.4 mL. Postvoid bladder volume is 45.7 mL. IMPRESSION:? 1.? Trace right hydronephrosis new from prior. 2.? Stable 6 mm nonobstructing right lower pole renal stone Assessment & Plan Assessment & Plan (1) Right flank pain: Code(s): R10.9 - Unspecified abdominal pain (2) Urgency of urination: Code(s): R39.15 - Urgency of urination Plan Right ESWL was discussed to be scheduled. Augmentin 500 mg was ordered for 7 days. Orders: Orders AMB Urinalysis Automated Today Z13.9 - Encounter for screening, unspecified AMB Cystoscopy Today R39.15 - Urgency of urination Medications: New naproxen 500 mg PO ONCE 1 tab 0RF R39.15 - Urgency of urination lidocaine HCl 2% 10 mL intra-urethral ONCE 10 mL 0RF R39.15 - Urgency of urination nitrofurantoin monohyd/m-cryst 100 mg 100 mg PO ONCE 1 cap 0RF R39.15 - Urgency of urination amoxicillin-pot clavulanate 500-125 mg (Augmentin) 1 tab PO BID 14 tabs 0RF Patient Instructions: The patient had an opportunity to ask questions regarding treatment plan. All questions were answered. Imaging, Laboratory studies and physical exam results were discussed and reviewed in detail. No major barriers to understanding were identified. The patient expressed understanding and agreement with the above treatment plan.? ? ? The patient is aware they should contact our office by phone for worsening of their current condition or the appearance of new symptoms. Compliance is encouraged with any medications and followup testing that is ordered.? ? ? It is a privilege to be allowed the opportunity to participate in the urologic care of your patient. If you have any questions or concerns regarding treatment for the above conditions please do not hesitate to contact me. The office telephone contact is [phone].? ? ? This note is constructed in part using voice recognition software. While every effort has been made to ensure accuracy medical transcriptionist errors may have been included.? ? ? Yours sincerely,? ? ? Padmini Buenrostro MD? Coding Level of Care Code Est Pt Level 3 (80448) Diagnoses Right flank pain R10.9 Urgency of urination R39.15 CPT Codes Cystoscopy - CPT: 97105-Jzgrzugofl ([id number])
== END 2023-02-16 09:43 | disposition home or self-care (01) ==
PROVIDERS: PCP Internal Medicine; Visit Provider Urology
DX: R10.9 Unspecified abdominal pain (principal); R39.15 Urgency of urination; Z13.9 Encounter for screening, unspecified; N32.9 Bladder disorder, unspecified
CPT/HCPCS: 52000; 99213

== ENCOUNTER → 2023-02-16 08:27 | Outpatient (BNVA) | payer MEDICARE, MEDICAID, SELFPAY | PROVIDERS: PCP Internal Medicine; Visit Provider Urology | DX: R39.15 Urgency of urination (principal); R10.9 Unspecified abdominal pain | CPT/HCPCS: 52000; 81003; 99212 ==

== ENCOUNTER 2023-04-04 05:59 | Day surgery (SDC) | payer MEDICARE, MEDICAID, SELFPAY ==
[2023-04-02 09:40] VITALS: BMI 24.8
--- NOTE | 2023-04-03 09:49 | HO.ANESPROP2 ---
Documented by User: Chuyita Hooker NP 04/03/23 09:50 HPI - Anesthesia Eval Consult details Narrative: 62yo F for Right ESWL PMFSH Active Problems Active Problems: All Active Problems (Updated 02/16/23 @ 09:29 by Padmini Buenrostro MD) Right flank pain (Acute) Renal stones (Acute) Renal cyst (Acute) ROSANA (generalized anxiety disorder) (Acute) Urgency of urination (Acute) Bilateral renal stones (Acute) Major depressive disorder, recurrent severe without psychotic features (Acute) Past Medical History Medical History (Updated 04/04/23 @ 06:55 by Annie Tripathi, RN) Hx of eye disorder PAC (premature atrial contraction) Hx of cardiovascular stress test Status post placement of bone anchored hearing aid (BAHA) IBS (irritable bowel syndrome) BPES syndrome Asthma Major depressive disorder, recurrent severe without psychotic features Gastroesophageal reflux disease Hypothyroidism Type II diabetes mellitus Urgency of urination Renal stones Surgical History Surgical History (Updated 04/04/23 @ 06:58 by Annie Tripathi RN) Hx of appendectomy History of surgery of head History of surgery on wrist Hx of shoulder surgery S/P ear surgery Hx of eye surgery History of bilateral knee replacement H/O total hysterectomy Social History Social History Household Members: Family Household Members Other:: sister and two nieces Housing: Apartment Patient Tobacco Use Status: Never used Tobacco Are you DNR?: No Advance Directives: No Advance Directives Information Provided: Yes Meds Allergies Allergy/AdvReac Type Severity Reaction Status Date / Time adhesive tape Allergy Intermediate redness/itc Verified 04/02/23 09:31 asha codeine Allergy Intermediate hives Verified 04/02/23 09:29 hydrocodone [Vicodin] Allergy Intermediate hives Verified 04/02/23 09:29 levofloxacin [Levaquin] Allergy Intermediate hives Verified 04/02/23 09:29 oxycodone [Percocet] Allergy Intermediate hives Verified 04/02/23 09:29 Sulfa (Sulfonamide Allergy Intermediate hives Verified 04/02/23 09:29 Antibiotics) morphine Allergy Unknown Unknown Verified 02/16/23 08:40 tolterodine AdvReac Severe Blurry Uncoded 02/16/23 08:40 Vision myrbetriq AdvReac Unknown Unknown Uncoded 04/02/23 09:29 Home Medications Medication Instructions Recorded Confirmed Last Taken Type atenolol 25 mg tablet 25 mg PO DAILY 06/17/21 04/02/23 04/04/23 History blood sugar diagnostic (FreeStyle #10 ea 06/17/21 02/16/23 Unknown History Lite Strips) budesonide-formoterol HFA 160 2 puff inhalation BID 06/17/21 04/02/23 Unknown History mcg-4.5 mcg/actuation aerosol inhaler (Symbicort) gabapentin 600 mg tablet 600 mg PO BID 06/17/21 04/02/23 11/23/21 07:30 History hydrochlorothiazide 25 mg tablet 25 mg PO BID 06/17/21 04/02/23 Unknown History ibandronate 150 mg tablet 150 mg PO QMONTH 06/17/21 04/02/23 11/06/21 History levothyroxine 88 mcg tablet 88 mcg PO DAILY 06/17/21 04/02/23 04/04/23 History (Synthroid) montelukast 10 mg tablet 10 mg PO DAILY 06/17/21 04/02/23 11/22/21 19:30 History cholecalciferol (vitamin D3) 25 25 mcg PO DAILY 11/23/21 04/02/23 11/23/21 07:30 History mcg (1,000 unit) tablet (Vitamin D3) famotidine 20 mg tablet 20 mg PO BID 11/23/21 04/02/23 Unknown History metformin 500 mg tablet 500 mg PO BID 11/23/21 04/02/23 Unknown History albuterol sulfate 90 mcg/actuation 2 puff inhalation QID PRN wheezing 06/16/22 04/02/23 Unknown History aerosol inhaler aripiprazole 5 mg tablet 5 mg PO DAILY 06/16/22 04/02/23 Unknown History atorvastatin 40 mg tablet 40 mg PO DAILY 06/16/22 04/02/23 Unknown History diclofenac sodium 75 mg 75 mg PO DAILY 06/16/22 04/02/23 Unknown History tablet,delayed release metformin 500 mg tablet 500 mg PO BID 04/03/23 Unknown History Exam Exam Date and Time: April 03, 2023 0949 Height,Weight and Vital Signs: Height 4 ft 11 in Weight 55.792 kg Assessment and Plan Assessment Anesthesia Assessment: Chart Reviewed Documented by User: Darell Boone MD 04/04/23 08:02 PMFSH Past Medical History Medical History (Updated 04/04/23 @ 06:55 by Annie Tripathi RN) Hx of eye disorder PAC (premature atrial contraction) Hx of cardiovascular stress test Status post placement of bone anchored hearing aid (BAHA) IBS (irritable bowel syndrome) BPES syndrome Asthma Major depressive disorder, recurrent severe without psychotic features Gastroesophageal reflux disease Hypothyroidism Type II diabetes mellitus Urgency of urination Renal stones Family History Family history of problems with anesthesia: No Surgical History Surgical History (Updated 04/04/23 @ 06:58 by Annie Tripathi RN) Hx of appendectomy History of surgery of head History of surgery on wrist Hx of shoulder surgery S/P ear surgery Hx of eye surgery History of bilateral knee replacement H/O total hysterectomy History of Problems with Anesthesia: No Social History Social History Household Members: Family Household Members Other:: sister and two nieces Housing: Apartment Patient Tobacco Use Status: Never used Tobacco Are you DNR?: No Advance Directives: No Advance Directives Information Provided: Yes Meds Allergies Allergy/AdvReac Type Severity Reaction Status Date / Time adhesive tape Allergy Intermediate redness/itc Verified 04/02/23 09:31 asha codeine Allergy Intermediate hives Verified 04/02/23 09:29 hydrocodone [Vicodin] Allergy Intermediate hives Verified 04/02/23 09:29 levofloxacin [Levaquin] Allergy Intermediate hives Verified 04/02/23 09:29 oxycodone [Percocet] Allergy Intermediate hives Verified 04/02/23 09:29 Sulfa (Sulfonamide Allergy Intermediate hives Verified 04/02/23 09:29 Antibiotics) morphine Allergy Unknown Unknown Verified 02/16/23 08:40 tolterodine AdvReac Severe Blurry Uncoded 02/16/23 08:40 Vision myrbetriq AdvReac Unknown Unknown Uncoded 04/02/23 09:29 Home Medications Medication Instructions Recorded Confirmed Last Taken Type atenolol 25 mg tablet 25 mg PO DAILY 06/17/21 04/02/23 04/04/23 History blood sugar diagnostic (FreeStyle #10 ea 06/17/21 02/16/23 Unknown History Lite Strips) budesonide-formoterol HFA 160 2 puff inhalation BID 06/17/21 04/02/23 Unknown History mcg-4.5 mcg/actuation aerosol inhaler (Symbicort) gabapentin 600 mg tablet 600 mg PO BID 06/17/21 04/02/23 11/23/21 07:30 History hydrochlorothiazide 25 mg tablet 25 mg PO BID 06/17/21 04/02/23 Unknown History ibandronate 150 mg tablet 150 mg PO QMONTH 06/17/21 04/02/23 11/06/21 History levothyroxine 88 mcg tablet 88 mcg PO DAILY 06/17/21 04/02/23 04/04/23 History (Synthroid) montelukast 10 mg tablet 10 mg PO DAILY 06/17/21 04/02/23 11/22/21 19:30 History cholecalciferol (vitamin D3) 25 25 mcg PO DAILY 11/23/21 04/02/23 11/23/21 07:30 History mcg (1,000 unit) tablet (Vitamin D3) famotidine 20 mg tablet 20 mg PO BID 11/23/21 04/02/23 Unknown History metformin 500 mg tablet 500 mg PO BID 11/23/21 04/02/23 Unknown History albuterol sulfate 90 mcg/actuation 2 puff inhalation QID PRN wheezing 06/16/22 04/02/23 Unknown History aerosol inhaler aripiprazole 5 mg tablet 5 mg PO DAILY 06/16/22 04/02/23 Unknown History atorvastatin 40 mg tablet 40 mg PO DAILY 06/16/22 04/02/23 Unknown History diclofenac sodium 75 mg 75 mg PO DAILY 06/16/22 04/02/23 Unknown History tablet,delayed release metformin 500 mg tablet 500 mg PO BID 04/03/23 Unknown History Exam Airway Mallampati Class: III TM Dist: >3cm Neck ROM: Full Assessment and Plan Assessment Anesthesia Assessment: Anesthesia Plan Discussed Final Anesthetic Review Family History of Problems with Anesthesia: No History of Problems with Anesthesia: No NPO: Yes ASA Class: II Final Preanesthetic Review: No Changes in Pt Med Stat, Meds/Allgs Chart Reviewed, Consent Obtained/Reviewed and Anes Risks/Benef Reviewed Patient Risk: Intermediate Procedure Risk: Low Anesthetic Plan Anesthetic Plan: GA Disposition: Standard PACU
--- NOTE | ~2023-04-04 | XR_ITS ---
EXAMINATION: XR ABDOMEN KUB CLINICAL INDICATION: Right ESWL COMPARISON: Ultrasound renal from 06/06/2022 and 02/12/2023 TECHNIQUE: AP view of the abdomen. FINDINGS: No radiopaque calcifications overlying the bilateral renal shadows or ureteral paths. Bowel gas is nonobstructive with moderate fecal loading. Dextrocurvature of the lumbar spine. Degenerative changes of the bilateral femoral acetabular joints. Surgical clips overlying the sacrum. Soft tissues are unremarkable. XR/XR KUB IMPRESSION: 1. No radiopaque calcifications overlying the bilateral renal shadows or ureteral paths. 2. Bowel gas is nonobstructive with moderate fecal loading.
[2023-04-04 06:28] VITALS: BP 111/73; PULSE 68; RESP 18; TEMP 36.6; O2SAT 96
[2023-04-04 06:42] LABS: Glucose, Whole Blood 115 mg/dL (60-115)
[2023-04-04] MEDS: Lactated Ringers 1,000 ML 100 ML IVCONT (06:47)
--- NOTE | 2023-04-04 07:44 | MHC.SHP ---
Pre-Procedural Eval Section A Date of Service: 04/04/23 The patient is an INPATIENT: No The History & Physical has been completed within 30 days and I have reviewed it.: Yes Section B Chief Complaint: Calculus of kidney Details of Present Illness: Lucy is a 62 y/o female with right kidney stone. US results from 02/12/2023 revealed 6 mm nonobstructing right lower pole renal stone. Allergies: Allergies Allergy/AdvReac Type Severity Reaction Status Date / Time adhesive tape Allergy Intermediate redness/itc Verified 04/02/23 09:31 asha codeine Allergy Intermediate hives Verified 04/02/23 09:29 hydrocodone [Vicodin] Allergy Intermediate hives Verified 04/02/23 09:29 levofloxacin [Levaquin] Allergy Intermediate hives Verified 04/02/23 09:29 oxycodone [Percocet] Allergy Intermediate hives Verified 04/02/23 09:29 Sulfa (Sulfonamide Allergy Intermediate hives Verified 04/02/23 09:29 Antibiotics) morphine Allergy Unknown Unknown Verified 02/16/23 08:40 tolterodine AdvReac Severe Blurry Uncoded 02/16/23 08:40 Vision myrbetriq AdvReac Unknown Unknown Uncoded 04/02/23 09:29 Plan Diagnosis/Plan: Unchanged I have reviewed the history and physical and performed a pertinent physical examination on my patient. No changes have occurred unless specified. Right ESWL. Discussed risks to include but not limited to, blood in the urine, bruising to the skin, kidney hematoma, possible need for another procedure if a stone fragment obstructs the ureter while passing, possible need to repeat procedure if stone is not completely fragmented. Time Spent With Patient Time: Total time managing care of this patient today ____ minutes.
[2023-04-04 08:36] VITALS: BP 125/53; PULSE 78; RESP 16; TEMP 36.1; O2SAT 95
[2023-04-04 08:41] VITALS: BP 122/57; PULSE 71; RESP 16; O2SAT 97
--- NOTE | 2023-04-04 08:41 | W.PM.OPN ---
Operative Note Operative Note Date of Service: 04/04/23 Narrative: PreOperative Diagnosis:? ? Right Renal stone Post Operative Diagnosis:? Right? Renal stone Procedure:? Right? ESWL Surgeon:?Dr Padmini Buenrostro Anesthesia:? General Indications for procedure: The patient understands there is a risk of bruising or hematoma to the kidney, infection, and stone migration following the procedure and subsequent intervention may be required.? - Imaging preprocedure KUB 5 mL by 5 mm stone right kidney lower pole. Procedure: After informed consent was verified the patient was brought to the operating room and placed in a supine position.? Anesthesia was performed per protocol. IV Ancef administered. Safety pause time-out was performed. Imaging was displayed in the room and laterality confirmed. ESWL was performed.?The stone was visualized on both fluoroscopy and ultrasound.? Shockwave lithotripsy was performed, after the first 300 shocks a pause for 3 minutes.? A total of 2500 shocks to a maximum of power of 18 with a maximum rate of 120 hertz.? Good fragmentation of the stone was appreciated. The patient tolerated the procedure well and was transferred to the recovery area upon completion. Complications: None
[2023-04-04 08:45] VITALS: BP 130/50; PULSE 71; RESP 20; O2SAT 96
[2023-04-04 08:50] VITALS: BP 131/53; PULSE 69; RESP 20; O2SAT 94
[2023-04-04 09:05] VITALS: BP 125/60; PULSE 67; RESP 20; TEMP 36.3; O2SAT 95
== END 2023-04-04 09:31 | disposition home or self-care (01) ==
PROVIDERS: PCP Internal Medicine; Visit Provider Urology
PROC: (CPT 50590; principal; 2023-04-04 07:30)
DX: N20.0 Calculus of kidney (principal); N28.1 Cyst of kidney, acquired; Z87.442 Personal history of urinary calculi; R39.15 Urgency of urination; F33.2 Major depressive disorder, recurrent severe without psychotic features; J45.909 Unspecified asthma, uncomplicated; E11.9 Type 2 diabetes mellitus without complications; Z79.51 Long term (current) use of inhaled steroids; Z79.84 Long term (current) use of oral hypoglycemic drugs; Z79.899 Other long term (current) drug therapy; Z88.2 Allergy status to sulfonamides; Z88.5 Allergy status to narcotic agent; Z88.8 Allergy status to other drugs, medicaments and biological substances; Z98.890 Other specified postprocedural states
CPT/HCPCS: 50590; 74018; 82947; J0131; J0690; J1100; J2250; J2405; J3010

== ENCOUNTER → 2023-04-04 05:59 | Outpatient (BNV) | payer MEDICARE, MEDICAID, SELFPAY | PROVIDERS: PCP Internal Medicine; Visit Provider Urology | DX: N20.0 Calculus of kidney (principal) | CPT/HCPCS: 50590 ==

== ENCOUNTER 2023-11-15 13:45 | Outpatient (REF) | payer MEDICARE, MEDICAID, SELFPAY ==
[2023-11-15 15:03] LABS: Appearance Urine Cloudy; Color Urine Yellow; Glucose Urine UA Negative (Negative); Leukocyte Esterase Urine Moderate (2+) (Negative); Nitrite Urine Negative (Negative); UMIC TRIGGER UA YES; Urine Blood Moderate (2+) (Negative); Urine Ketones Negative (Negative); Urine Protein 30 (1+) mg/dL (Neg-Trace)
[2023-11-15 15:07] LABS: Bacteria Urine None Seen (None Seen); Hyaline Casts Urine 0-2 /LPF (0-2); RBC Urine >20 /HPF (0-2); Squamous Epithelial Cell Urine 0-2 /HPF (0-2); WBC Urine >50 /HPF (0-5)
== END 2023-11-15 13:46 | disposition home or self-care (01) ==
LOC: HO.LAB 13:45
PROVIDERS: PCP Internal Medicine; Visit Provider Urology
DX: R39.15 Urgency of urination (principal)
CPT/HCPCS: 81001; 87086

== ENCOUNTER 2023-11-27 09:30 | Outpatient (REF) | payer MEDICARE, MEDICAID, SELFPAY ==
--- NOTE | ~2023-11-27 | US_ITS ---
EXAMINATION: US RETROPERITONEAL LIMITED (RENAL ONLY) CLINICAL INFORMATION: Abdominal pain. COMPARISON: KUB 04/04/2023 Renal ultrasound 02/12/2023 TECHNIQUE: Real-time imaging of the bladder FINDINGS: RIGHT KIDNEY: 8.9 x 4.8 x 4.0 cm (SAG x AP x TRV). The kidney is normal in size, contour, and echogenicity. Renal cortical thickness is normal. No focal parenchymal lesions. Mild persistent hydronephrosis. A few punctate foci with twinkle artifact are consistent with nonobstructing calculi. LEFT KIDNEY: 10.3 x 5.0 x 3.5 cm (SAG x AP x TRV). The kidney is normal in size, contour, and echogenicity. Renal cortical thickness is normal. No hydronephrosis. 2.4 x 2.5 x 2.7 cm simple upper pole cyst is seen, no imaging follow-up recommended. 0.2 x 0.2 x 0.3 cm nonobstructing calculus is seen in the lower pole. US/US renal BI IMPRESSION: 1. Mild persistent right hydronephrosis. 2. Bilateral nonobstructing renal calculi.
== END 2023-11-27 09:31 | disposition home or self-care (01) ==
LOC: HO.US 09:30
PROVIDERS: PCP Internal Medicine; Visit Provider Nurse Practitioner Family
DX: R10.9 Unspecified abdominal pain (principal); N28.1 Cyst of kidney, acquired; N20.0 Calculus of kidney; R39.15 Urgency of urination
CPT/HCPCS: 76775

== ENCOUNTER 2024-01-03 08:08 | Outpatient (AMB) | payer MEDICARE, MEDICAID, SELFPAY ==
--- NOTE | 2024-01-03 08:21 | MHC.OFFVIS ---
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: No Allergies adhesive tape Allergy (Intermediate, Verified 01/03/24 08:24) redness/itching codeine Allergy (Intermediate, Verified 01/03/24 08:24) hives hydrocodone [Vicodin] Allergy (Intermediate, Verified 01/03/24 08:24) hives levofloxacin [Levaquin] Allergy (Intermediate, Verified 01/03/24 08:24) hives oxycodone [Percocet] Allergy (Intermediate, Verified 01/03/24 08:24) hives Sulfa (Sulfonamide Antibiotics) Allergy (Intermediate, Verified 01/03/24 08:24) hives morphine Allergy (Unknown, Verified 01/03/24 08:24) Unknown tolterodine Adverse Reaction (Severe, Uncoded 01/03/24 08:24) Blurry Vision myrbetriq Adverse Reaction (Unknown, Uncoded 01/03/24 08:24) Unknown HPI Comments Details: 01/03/24--Lucy is a 63-year-old female who presents today to the office for a follow-up. She is followed for kidney stones and overactive bladder. She is prescribed potassium citrate and hydrochlorothiazide by Dr. Chew. History of prior right ESWL. Today she States she had some right flank pain had started several weeks ago and has improved. Renal US 11/2023 reviewed-- mild right hydronephrosis, bilateral kidney stones. Will check a CT KUB rule out any persistent ureteral calcifications. Cont vesicare for OAB symptoms. Check 24 hour urine. Review of chart: 02/16/2023? She is followed today for cystoscopy procedure. She has seen Nurse Practitioner Giovana Gonzales on 01/12/2023 for PVR. The patient was advised to follow-up in office Cystoscopy during that time. She mentions having right flank pain. She rates that pain as 5 on a scale of 1/10. She had lithotripsy in the past for the history of kidney stones in the past. Patient has also had Cystoscopy procedure in the past. She has been taking potassium citrate 10 mEq twice a day and Vesicare 10 mg daily. I reviewed the retroperitoneum US results from 02/12/2023 revealed trace right hydronephrosis new from prior. Stable 6 mm nonobstructing right lower pole renal stone. Cystoscopy procedure: Consent was obtained to perform cystoscopy procedure. The patient was provided naproxen 500 mg, and Macrobid 100 mg x 1 dose pre-procedure today. Cystoscopy findings: suspicious bladder lesion found. [facility] Medical History Hx of eye disorder PAC (premature atrial contraction) Hx of cardiovascular stress test Status post placement of bone anchored hearing aid (BAHA) IBS (irritable bowel syndrome) BPES syndrome Asthma Major depressive disorder, recurrent severe without psychotic features Gastroesophageal reflux disease Hypothyroidism Type II diabetes mellitus Urgency of urination Renal stones Surgical History Hx of appendectomy History of surgery of head History of surgery on wrist Hx of shoulder surgery S/P ear surgery Hx of eye surgery History of bilateral knee replacement H/O total hysterectomy Social History Household Members: Family Household Members Other:: sister and two nieces Housing: Apartment Patient Tobacco Use Status: Never used Tobacco Review of Systems Const All systems reviewed & are unremarkable except as noted in HPI and below Reports no additional complaints Eyes Reports no additional complaints ENT Reports no additional complaints Card Reports no additional complaints Resp Reports no additional complaints GI Reports no additional complaints Reports as per HPI Musc Reports no additional complaints Skin/Breast Reports system reviewed and no additional complaints, except as documented Neuro Reports no additional complaints Psych Reports no additional complaints Endo Reports no additional complaints Ranjith/Lymph Reports no additional complaints Aller/Immun Reports no additional complaints Office Procedures Post Void Residual Post Residual Void Post Void Residual (PVR): 0 [id number] Void Residual by ultrasound Results AMB Urinalysis, Automated UA Leukoctes 0 Steve/uL Last Edit by INDU Andrade on 01/03/24 08:30 UA Nitrite Negative Last Edit by INDU Andrade on 01/03/24 08:30 UA Urobilinogen 0.2 mg/dL Last Edit by INDU Andrade on 01/03/24 08:30 UA Protein 15 mg/dL Last Edit by INDU Andrade on 01/03/24 08:30 UA pH 6.0 Last Edit by INDU Andrade on 01/03/24 08:30 UA Blood 0 Kristian/uL Last Edit by INDU Andrade on 01/03/24 08:30 UA Specific Valencia 1.025 Last Edit by INDU Andrade on 01/03/24 08:30 UA Ketone Negative Last Edit by INDU Andrade on 01/03/24 08:30 UA Bilirubin 0 mg/dL Last Edit by ALBERT AndradeA on 01/03/24 08:30 UA Glucose 0 mg/dL Last Edit by INDU Andrade on 01/03/24 08:30 Results Reviewed Results Reviewed: Laboratory Last Values Urine pH (Auto) 6.0 01/03/24 08:24 Specific Valencia (Auto) 1.025 01/03/24 08:24 Urine Protein (Auto) 15 mg/dL 01/03/24 08:24 Glucose (UA)(Auto) 0 mg/dL 01/03/24 08:24 Urine Ketones (Auto) Negative 01/03/24 08:24 Urine Blood (Auto) 0 Kristian/uL 01/03/24 08:24 Urine Nitrite (Auto) Negative 01/03/24 08:24 Urine Bilirubin (Auto) 0 mg/dL 01/03/24 08:24 Urine Urobilinogen (Auto) 0.2 mg/dL 01/03/24 08:24 Leukocyte Esterase (Auto) 0 Steve/uL 01/03/24 08:24 Date of Service: 11/27/23 EXAMINATION: US RETROPERITONEAL LIMITED (RENAL ONLY) CLINICAL INFORMATION: Abdominal pain. COMPARISON: KUB 04/04/2023 Renal ultrasound 02/12/2023 TECHNIQUE: Real-time imaging of the bladder FINDINGS: RIGHT KIDNEY: 8.9 x 4.8 x 4.0 cm (SAG x AP x TRV). The kidney is normal in size, contour, and echogenicity. Renal cortical thickness is normal. No focal parenchymal lesions. Mild persistent hydronephrosis. A few punctate foci with twinkle artifact are consistent with nonobstructing calculi. LEFT KIDNEY: 10.3 x 5.0 x 3.5 cm (SAG x AP x TRV). The kidney is normal in size, contour, and echogenicity. Renal cortical thickness is normal. No hydronephrosis. 2.4 x 2.5 x 2.7 cm simple upper pole cyst is seen, no imaging follow-up recommended. 0.2 x 0.2 x 0.3 cm nonobstructing calculus is seen in the lower pole. IMPRESSION: 1. Mild persistent right hydronephrosis. 2. Bilateral nonobstructing renal calculi. Date of Service: 02/12/23 EXAMINATION:? US RETROPERITONEAL COMPLETE (RENAL) CLINICAL INFORMATION: Calculus of kidney. COMPARISON:? Ultrasound retroperitoneal limited (renal only) 06/06/2022 and 06/09/2021. FINDINGS: RIGHT KIDNEY: 9.3 x 4.1 x 4.7 cm (SAG x AP x TRV). The kidney is normal in size, contour, and echogenicity. Renal cortical thickness is normal. No focal parenchymal lesions. 6 mm nonobstructing lower pole renal stone, previously 6 mm not significantly changed. Trace right hydronephrosis new from prior. LEFT KIDNEY: 9.1 x 4.8 x 3.5 cm (SAG x AP x TRV). The kidney is normal in size, contour, and echogenicity. Renal cortical thickness is normal. No renal calculi or hydronephrosis. Benign-appearing renal cyst measuring 2.7 cm. No follow up imaging is recommended. BLADDER: Well distended and normal. Bilateral ureteral jets are demonstrated. Prevoid bladder volume is 345.4 mL. Postvoid bladder volume is 45.7 mL. IMPRESSION:? 1.? Trace right hydronephrosis new from prior. 2.? Stable 6 mm nonobstructing right lower pole renal stone Assessment & Plan Assessment & Plan (1) Right flank pain: Code(s): R10.9 - Unspecified abdominal pain Category: Medical (2) Urgency of urination: Code(s): R39.15 - Urgency of urination Category: Medical (3) Renal stones: Code(s): N20.0 - Calculus of kidney Category: Medical (4) OAB (overactive bladder): Code(s): N32.81 - Overactive bladder Category: Medical Plan States she had some right flank pain had started several weeks ago and has improved. Renal US 11/2023 reviewed-- mild right hydronephrosis, bilateral kidney stones. Will check a CT KUB rule out any persistent ureteral calcifications. Cont vesicare for OAB symptoms. 24 hour urine Orders: Orders CT abdomen pelvis wo IV con Today N20.0 - Calculus of kidney AMB Post Void Residual by ultrasound Today R39.15 - Urgency of urination AMB Urinalysis Automated Today Z13.9 - Encounter for screening, unspecified Medications: Refilled solifenacin (Vesicare) 10 mg PO DAILY 90 days 90 tabs 3RF Patient Instructions: The patient had an opportunity to ask questions regarding treatment plan. The patient expressed understanding and agreement with the above treatment plan. The patient is aware they should contact our office by phone for worsening of their current condition or the appearance of new symptoms. Compliance is encouraged with any medications and followup testing that is ordered. It is a privilege to be allowed the opportunity to participate in the urologic care of your patient. If you have any questions or concerns regarding treatment for the above conditions please do not hesitate to contact me. The office telephone contact is [phone]. This note is constructed in part using voice recognition software. While every effort has been made to ensure accuracy electrical equipment assembler errors may have been included. Yours sincerely, Padmini Buenrostro MD Coding Level of Care Code Est Pt Level 4 (31192) Diagnoses Right flank pain R10.9 Urgency of urination R39.15 Renal stones N20.0 OAB (overactive bladder) N32.81 CPT Codes Post Residual Void - PVR CPT Code: 96327-Tnct Void Residual by ultrasound ([id number])
== END 2024-01-03 09:08 | disposition home or self-care (01) ==
PROVIDERS: PCP Internal Medicine; Visit Provider Urology
DX: R10.9 Unspecified abdominal pain (principal); R39.15 Urgency of urination; N20.0 Calculus of kidney; N32.81 Overactive bladder; Z13.9 Encounter for screening, unspecified
CPT/HCPCS: 99214

== ENCOUNTER → 2024-01-03 08:08 | Outpatient (BNVA) | payer MEDICARE, MEDICAID, SELFPAY | PROVIDERS: PCP Internal Medicine; Visit Provider Urology | DX: N20.0 Calculus of kidney (principal); R10.9 Unspecified abdominal pain; R39.15 Urgency of urination; N32.81 Overactive bladder; Z87.442 Personal history of urinary calculi; Z79.899 Other long term (current) drug therapy | CPT/HCPCS: 51798; 81003; 99212 ==

== ENCOUNTER 2024-02-21 08:26 | Outpatient (REF) | payer MEDICARE, MEDICAID, SELFPAY ==
--- NOTE | ~2024-02-21 | CT_ITS ---
EXAMINATION: CT ABDOMEN AND PELVIS WITHOUT CONTRAST CLINICAL INFORMATION: Calculus of kidney. COMPARISON: Renal ultrasound 11/27/2023. TECHNIQUE: Multidetector volumetric imaging was performed from the superior aspect of the liver through the pubic symphysis. Sagittal and coronal reformatted images were obtained on the technologist's workstation. This CT examination was performed using dose optimization techniques as appropriate, variously including the following: *Automated exposure control *Adjustment of mA and/or kV according to patient size (this includes techniques or standardized protocols for targeted exams where dose is matched to indication/reason for exam; i.e. extremities or head) *Use of iterative reconstruction technique DLP: 277 mGy-cm FINDINGS: LUNG BASES: The visualized lung bases are unremarkable. LIVER, GALLBLADDER, AND BILIARY TREE: The liver is normal in size, shape, and attenuation. No focal hepatic lesion or biliary ductal dilatation is present. The gallbladder is unremarkable with no evidence of radiopaque gallstones, gallbladder wall thickening, or obvious pericholecystic inflammatory changes. PANCREAS: No discrete pancreatic mass. No pancreatic ductal dilatation. SPLEEN: Unremarkable. ADRENAL GLANDS: No adrenal mass. KIDNEYS AND URETERS: Punctate nonobstructing calculus upper pole right kidney 6.4 cm from posterolateral skin surface. Three punctate nonobstructing calculi in the left upper, mid, lower kidney 6.4-8.6 cm from posterolateral skin surface. There is no hydronephrosis. 2.8 cm simple cyst in the upper left kidney for which no imaging follow-up is recommended. BLADDER: Decompressed and not well evaluated. No discrete bladder mass or bladder calculus GASTROINTESTINAL TRACT: The small and large bowel are normal in caliber. No perceptible focal bowel wall thickening or inflammatory changes. ABDOMINAL WALL: Diastases recti. No discrete hernia evident. LYMPH NODES: No adenopathy. No pericardial effusion. VASCULAR: No aortic aneurysm. PELVIC VISCERA: Hysterectomy. No pelvic mass. OSSEOUS STRUCTURES: Moderate to severe degenerative disc disease at L2-L3 and L5-S1. No destructive osseous lesions. CT/CT abdomen pelvis wo IV con IMPRESSION: Punctate nonobstructing bilateral renal calculi. No hydronephrosis. Electronically signed by: Naveen Pardo MD 02/29/2024 12:02 PM EDT
== END 2024-02-21 08:27 | disposition home or self-care (01) ==
LOC: HO.CT 08:26
PROVIDERS: PCP Internal Medicine; Visit Provider Urology
DX: N20.0 Calculus of kidney (principal)
CPT/HCPCS: 74176

== ENCOUNTER 2024-02-28 08:21 | Outpatient (AMB) | payer MEDICARE, MEDICAID, SELFPAY ==
--- NOTE | 2024-02-28 08:22 | MHC.OFFVIS ---
Intake Visit Reasons: 8w/CT/[facility] Intake Note: Pt presents to the office today as a telehealth appt for a [address]/[facility] Allergies adhesive tape Allergy (Intermediate, Verified 02/28/24 08:22) redness/itching codeine Allergy (Intermediate, Verified 02/28/24 08:22) hives hydrocodone [Vicodin] Allergy (Intermediate, Verified 02/28/24 08:22) hives levofloxacin [Levaquin] Allergy (Intermediate, Verified 02/28/24 08:22) hives oxycodone [Percocet] Allergy (Intermediate, Verified 02/28/24 08:22) hives Sulfa (Sulfonamide Antibiotics) Allergy (Intermediate, Verified 02/28/24 08:22) hives morphine Allergy (Unknown, Verified 02/28/24 08:22) Unknown tolterodine Adverse Reaction (Severe, Uncoded 02/28/24 08:22) Blurry Vision myrbetriq Adverse Reaction (Unknown, Uncoded 02/28/24 08:22) Unknown HPI Comments Details: 02/28/24--history of kidney stones, oab. Telehealth follow-up to review imaging and test results. CT stone 02/21/2024 transcript. Discussed 24 hour urine results: Total volume 940 mL, Calcium 128 mg; Oxalate 16 mg, Sodium 116, Citrate 603 mg. Instructed on importance of fluid intake, Low oxalate diet, low sodium diet. Continue potassium citrate and VESIcare. Review of chart: 01/03/24--Lucy is a 63-year-old female who presents today to the office for a follow-up. She is followed for kidney stones and overactive bladder. She is prescribed potassium citrate and hydrochlorothiazide by Dr. Chew. History of prior right ESWL. Today she States she had some right flank pain had started several weeks ago and has improved. Renal US 11/2023 reviewed-- mild right hydronephrosis, bilateral kidney stones. Will check a CT KUB rule out any persistent ureteral calcifications. Cont vesicare for OAB symptoms. Check 24 hour urine. 02/16/2023?She is followed today for cystoscopy procedure. She has seen Nurse Practitioner Giovana Gonzales on 01/12/2023 for PVR. The patient was advised to follow-up in office Cystoscopy during that time. She mentions having right flank pain. She rates that pain as 5 on a scale of 1/10. She had lithotripsy in the past for the history of kidney stones in the past. Patient has also had Cystoscopy procedure in the past. She has been taking potassium citrate 10 mEq twice a day and Vesicare 10 mg daily. I reviewed the retroperitoneum US results from 02/12/2023 revealed trace right hydronephrosis new from prior. Stable 6 mm nonobstructing right lower pole renal stone. Cystoscopy procedure: Cystoscopy findings: suspicious bladder lesion found. [facility] Medical History Hx of eye disorder PAC (premature atrial contraction) Hx of cardiovascular stress test Status post placement of bone anchored hearing aid (BAHA) IBS (irritable bowel syndrome) BPES syndrome Asthma Major depressive disorder, recurrent severe without psychotic features Gastroesophageal reflux disease Hypothyroidism Type II diabetes mellitus Urgency of urination Renal stones Surgical History Hx of appendectomy History of surgery of head History of surgery on wrist Hx of shoulder surgery S/P ear surgery Hx of eye surgery History of bilateral knee replacement H/O total hysterectomy Social History Household Members: Family Household Members Other:: sister and two nieces Housing: Apartment Patient Tobacco Use Status: Never used Tobacco Review of Systems Const All systems reviewed & are unremarkable except as noted in HPI and below Reports no additional complaints Eyes Reports no additional complaints ENT Reports no additional complaints Card Reports no additional complaints Resp Reports no additional complaints GI Reports no additional complaints Reports as per HPI Musc Reports no additional complaints Skin/Breast Reports system reviewed and no additional complaints, except as documented Neuro Reports no additional complaints Psych Reports no additional complaints Endo Reports no additional complaints Ranjith/Lymph Reports no additional complaints Aller/Immun Reports no additional complaints Telehealth Telehealth Telehealth Platform: [facility] Location of provider rendering services: practice address Location of patient: address on file Patient Identification confirmed using: Name, : Yes Telehealth method: voice only Patient verbally consented to treatment: Yes Patient verbally consented to billing insurance company: Yes Patient informed of any privacy concerns related to visit: Yes Minutes spent on Phone/Video with Pt.: 15 Assessment & Plan Assessment & Plan (1) Renal stones: Code(s): N20.0 - Calculus of kidney Category: Medical (2) OAB (overactive bladder): Code(s): N32.81 - Overactive bladder Category: Medical Plan Renal US 11/2023 reviewed-- mild right hydronephrosis, bilateral kidney stones. CT KUB official transcript pending. Cont vesicare for OAB symptoms. Patient Instructions: The patient had an opportunity to ask questions regarding treatment plan. The patient expressed understanding and agreement with the above treatment plan. The patient is aware they should contact our office by phone for worsening of their current condition or the appearance of new symptoms. Compliance is encouraged with any medications and followup testing that is ordered. It is a privilege to be allowed the opportunity to participate in the urologic care of your patient. If you have any questions or concerns regarding treatment for the above conditions please do not hesitate to contact me. The office telephone contact is [phone]. This note is constructed in part using voice recognition software. While every effort has been made to ensure accuracy sales representative raw fibers errors may have been included. Yours sincerely, Padmini Buenrostro MD Coding Level of Care Code Tele Est Pt Level 3 (96601) Diagnoses Renal stones N20.0 OAB (overactive bladder) N32.81
== END 2024-02-28 11:02 | disposition home or self-care (01) ==
LOC: HO.HUSH 08:21
PROVIDERS: PCP Internal Medicine; Visit Provider Urology
DX: N20.0 Calculus of kidney (principal); N32.81 Overactive bladder
CPT/HCPCS: 99442

== ENCOUNTER → 2024-02-28 08:21 | Outpatient (BNVA) | payer MEDICARE, MEDICAID, SELFPAY | PROVIDERS: PCP Internal Medicine; Visit Provider Urology ==

== ENCOUNTER 2024-04-25 11:04 | Outpatient (AMB) | payer MEDICARE, MEDICAID, SELFPAY ==
--- NOTE | 2024-04-25 02:35 | MHC.OFFVIS ---
Intake Visit Reasons: CT Results Intake Note: Patient is present for CT RESULTS Urology Medication:SOLIFENACIN Antibiotic Allergy:LEVOFLOXACIN,SULFA Blood Thinner:NONE Veterinary Poultry Inspector Required: No Allergies adhesive tape Allergy (Intermediate, Verified 04/25/24 11:09) redness/itching codeine Allergy (Intermediate, Verified 04/25/24 11:09) hives hydrocodone [Vicodin] Allergy (Intermediate, Verified 04/25/24 11:09) hives levofloxacin [Levaquin] Allergy (Intermediate, Verified 04/25/24 11:09) hives oxycodone [Percocet] Allergy (Intermediate, Verified 04/25/24 11:09) hives Sulfa (Sulfonamide Antibiotics) Allergy (Intermediate, Verified 04/25/24 11:09) hives morphine Allergy (Unknown, Verified 04/25/24 11:09) Unknown tolterodine Adverse Reaction (Severe, Uncoded 04/25/24 11:09) Blurry Vision myrbetriq Adverse Reaction (Unknown, Uncoded 04/25/24 11:09) Unknown Medication List - Last Reconciled 04/25/24 by Padmini Buenrostro MD albuterol sulfate 90 mcg/actuation 2 puffs inhalation QID PRN aripiprazole 5 mg PO DAILY atenolol 25 mg PO DAILY atorvastatin 40 mg PO DAILY blood sugar diagnostic (FreeStyle Lite Strips) As directed budesonide-formoterol 160-4.5 mcg/actuation (Symbicort) 2 puffs inhalation BID cholecalciferol (vitamin D3) (Vitamin D3) 25 mcg PO DAILY diclofenac sodium 75 mg PO DAILY duloxetine (Cymbalta) 30 mg PO DAILY 7 days duloxetine (Cymbalta) 60 mg PO DAILY 7 days famotidine 20 mg PO BID gabapentin 600 mg PO BID hydrochlorothiazide 25 mg PO BID ibandronate 150 mg PO QMONTH levothyroxine (Synthroid) 88 mcg PO DAILY metformin 500 mg PO BID metformin 500 mg PO BID montelukast 10 mg PO DAILY potassium citrate ER 10 mEq PO BID 90 days solifenacin (Vesicare) 10 mg PO DAILY 90 days tramadol 50 mg PO Q8H PRN 3 days HPI Comments Details: 04/25/24--Lucy is a 63-year-old female who presents today to the office for a follow-up. She is followed for kidney stones and overactive bladder. LV -02/28/24--Renal US 11/2023 reviewed-- mild right hydronephrosis, bilateral kidney stones. CT KUB official transcript pending. Cont vesicare for OAB symptoms. CTAP-02/21/24--Punctate nonobstructing bilateral renal calculi. No hydronephrosis. Will continue to monitor. Review of chart: 02/28/24--history of kidney stones, oab. Telehealth follow-up to review imaging and test results. CT stone 02/21/2024 transcript. Discussed 24 hour urine results: Total volume 940 mL, Calcium 128 mg; Oxalate 16 mg, Sodium 116, Citrate 603 mg. Instructed on importance of fluid intake, Low oxalate diet, low sodium diet. Continue potassium citrate and VESIcare. 01/03/24--Lucy is a 63-year-old female who presents today to the office for a follow-up. She is followed for kidney stones and overactive bladder. She is prescribed potassium citrate and hydrochlorothiazide by Dr. Chew. History of prior right ESWL. Today she States she had some right flank pain had started several weeks ago and has improved. Renal US 11/2023 reviewed-- mild right hydronephrosis, bilateral kidney stones. Will check a CT KUB rule out any persistent ureteral calcifications. Cont vesicare for OAB symptoms. Check 24 hour urine. 02/16/2023?She is followed today for cystoscopy procedure. She has seen Nurse Practitioner Giovana Gonzales on 01/12/2023 for PVR. The patient was advised to follow-up in office Cystoscopy during that time. She mentions having right flank pain. She rates that pain as 5 on a scale of 1/10. She had lithotripsy in the past for the history of kidney stones in the past. Patient has also had Cystoscopy procedure in the past. She has been taking potassium citrate 10 mEq twice a day and Vesicare 10 mg daily. I reviewed the retroperitoneum US results from 02/12/2023 revealed trace right hydronephrosis new from prior. Stable 6 mm nonobstructing right lower pole renal stone. Cystoscopy procedure: Cystoscopy findings: suspicious bladder lesion found. [facility] Medical History Hx of eye disorder PAC (premature atrial contraction) Hx of cardiovascular stress test Status post placement of bone anchored hearing aid (BAHA) IBS (irritable bowel syndrome) BPES syndrome Asthma Major depressive disorder, recurrent severe without psychotic features Gastroesophageal reflux disease Hypothyroidism Type II diabetes mellitus Urgency of urination Renal stones Surgical History Hx of appendectomy History of surgery of head History of surgery on wrist Hx of shoulder surgery S/P ear surgery Hx of eye surgery History of bilateral knee replacement H/O total hysterectomy Social History Household Members: Family Household Members Other:: sister and two nieces Housing: Apartment Patient Tobacco Use Status: Never used Tobacco Results AMB Urinalysis, Automated UA Leukoctes 0 Steve/uL Last Edit by MAHSA Ramsay on 04/25/24 11:20 UA Nitrite Negative Last Edit by Carly De Santiago CCM on 04/25/24 11:20 UA Urobilinogen 0.2 mg/dL Last Edit by Carly De Santiago CCM on 04/25/24 11:20 UA Protein 0 mg/dL Last Edit by Carly De Santiago CCM on 04/25/24 11:20 UA pH 6.0 Last Edit by Carly De Santiago CCM on 04/25/24 11:20 UA Blood 0 Kristian/uL Last Edit by Carly De Santiago CCM on 04/25/24 11:20 UA Specific [place] 1.015 Last Edit by Carly De Santiago CCM on 04/25/24 11:20 UA Ketone Negative Last Edit by Carly De Santiago CCM on 04/25/24 11:20 UA Bilirubin 0 mg/dL Last Edit by Carly De Santiago CCM on 04/25/24 11:20 UA Glucose 0 mg/dL Last Edit by Carly De Santiago CCM on 04/25/24 11:20 Results Reviewed Results Reviewed: Laboratory Last Values Urine pH (Auto) 6.0 04/25/24 11:18 Specific [place] (Auto) 1.015 04/25/24 11:18 Urine Protein (Auto) 0 mg/dL 04/25/24 11:18 Glucose (UA)(Auto) 0 mg/dL 04/25/24 11:18 Urine Ketones (Auto) Negative 04/25/24 11:18 Urine Blood (Auto) 0 Kristian/uL 04/25/24 11:18 Urine Nitrite (Auto) Negative 04/25/24 11:18 Urine Bilirubin (Auto) 0 mg/dL 04/25/24 11:18 Urine Urobilinogen (Auto) 0.2 mg/dL 04/25/24 11:18 Leukocyte Esterase (Auto) 0 Steve/uL 04/25/24 11:18 Date of Service: 02/21/24 CT ABDOMEN AND PELVIS WITHOUT CONTRAST CLINICAL INFORMATION: Calculus of kidney. COMPARISON: Renal ultrasound 11/27/2023. TECHNIQUE: Multidetector volumetric imaging was performed from the superior aspect of the liver through the pubic symphysis. Sagittal and coronal reformatted images were obtained on the technologist's workstation. This CT examination was performed using dose optimization techniques as appropriate, variously including the following: *Automated exposure control *Adjustment of mA and/or kV according to patient size (this includes techniques or standardized protocols for targeted exams where dose is matched to indication/reason for exam; i.e. extremities or head) *Use of iterative reconstruction technique DLP: 277 mGy-cm FINDINGS: LUNG BASES: The visualized lung bases are unremarkable. LIVER, GALLBLADDER, AND BILIARY TREE: The liver is normal in size, shape, and attenuation. No focal hepatic lesion or biliary ductal dilatation is present. The gallbladder is unremarkable with no evidence of radiopaque gallstones, gallbladder wall thickening, or obvious pericholecystic inflammatory changes. PANCREAS: No discrete pancreatic mass. No pancreatic ductal dilatation. SPLEEN: Unremarkable. ADRENAL GLANDS: No adrenal mass. KIDNEYS AND URETERS: Punctate nonobstructing calculus upper pole right kidney 6.4 cm from posterolateral skin surface. Three punctate nonobstructing calculi in the left upper, mid, lower kidney 6.4-8.6 cm from posterolateral skin surface. There is no hydronephrosis. 2.8 cm simple cyst in the upper left kidney for which no imaging follow-up is recommended. BLADDER: Decompressed and not well evaluated. No discrete bladder mass or bladder calculus GASTROINTESTINAL TRACT: The small and large bowel are normal in caliber. No perceptible focal bowel wall thickening or inflammatory changes. ABDOMINAL WALL: Diastases recti. No discrete hernia evident. LYMPH NODES: No adenopathy. No pericardial effusion. VASCULAR: No aortic aneurysm. PELVIC VISCERA: Hysterectomy. No pelvic mass. OSSEOUS STRUCTURES: Moderate to severe degenerative disc disease at L2-L3 and L5-S1. No destructive osseous lesions. IMPRESSION: Punctate nonobstructing bilateral renal calculi. No hydronephrosis. Date of Service: 11/27/23 EXAMINATION: US RETROPERITONEAL LIMITED (RENAL ONLY) CLINICAL INFORMATION: Abdominal pain. COMPARISON: KUB 04/04/2023 Renal ultrasound 02/12/2023 TECHNIQUE: Real-time imaging of the bladder FINDINGS: RIGHT KIDNEY: 8.9 x 4.8 x 4.0 cm (SAG x AP x TRV). The kidney is normal in size, contour, and echogenicity. Renal cortical thickness is normal. No focal parenchymal lesions. Mild persistent hydronephrosis. A few punctate foci with twinkle artifact are consistent with nonobstructing calculi. LEFT KIDNEY: 10.3 x 5.0 x 3.5 cm (SAG x AP x TRV). The kidney is normal in size, contour, and echogenicity. Renal cortical thickness is normal. No hydronephrosis. 2.4 x 2.5 x 2.7 cm simple upper pole cyst is seen, no imaging follow-up recommended. 0.2 x 0.2 x 0.3 cm nonobstructing calculus is seen in the lower pole. IMPRESSION: 1. Mild persistent right hydronephrosis. 2. Bilateral nonobstructing renal calculi. Date of Service: 02/12/23 EXAMINATION:? US RETROPERITONEAL COMPLETE (RENAL) CLINICAL INFORMATION: Calculus of kidney. COMPARISON:? Ultrasound retroperitoneal limited (renal only) 06/06/2022 and 06/09/2021. FINDINGS: RIGHT KIDNEY: 9.3 x 4.1 x 4.7 cm (SAG x AP x TRV). The kidney is normal in size, contour, and echogenicity. Renal cortical thickness is normal. No focal parenchymal lesions. 6 mm nonobstructing lower pole renal stone, previously 6 mm not significantly changed. Trace right hydronephrosis new from prior. LEFT KIDNEY: 9.1 x 4.8 x 3.5 cm (SAG x AP x TRV). The kidney is normal in size, contour, and echogenicity. Renal cortical thickness is normal. No renal calculi or hydronephrosis. Benign-appearing renal cyst measuring 2.7 cm. No follow up imaging is recommended. BLADDER: Well distended and normal. Bilateral ureteral jets are demonstrated. Prevoid bladder volume is 345.4 mL. Postvoid bladder volume is 45.7 mL. IMPRESSION:? 1.? Trace right hydronephrosis new from prior. 2.? Stable 6 mm nonobstructing right lower pole renal stone Assessment & Plan Assessment & Plan (1) Renal stones: Code(s): N20.0 - Calculus of kidney Category: Medical (2) OAB (overactive bladder): Code(s): N32.81 - Overactive bladder Category: Medical Plan CT KUB - bilateral tiny stones, official transcript pending. Cont vesicare for OAB symptoms. Orders: Orders AMB Urinalysis Automated 04/25/24 Z13.9 - Encounter for screening, unspecified Medications: Refilled solifenacin (Vesicare) 10 mg PO DAILY 90 tabs 3RF 90 days Patient Instructions: The patient had an opportunity to ask questions regarding treatment plan. The patient expressed understanding and agreement with the above treatment plan. The patient is aware they should contact our office by phone for worsening of their current condition or the appearance of new symptoms. Compliance is encouraged with any medications and followup testing that is ordered. It is a privilege to be allowed the opportunity to participate in the urologic care of your patient. If you have any questions or concerns regarding treatment for the above conditions please do not hesitate to contact me. The office telephone contact is [phone]. This note is constructed in part using voice recognition software. While every effort has been made to ensure accuracy urology nurse errors may have been included. Yours sincerely, Padmini Buenrostro MD Coding Level of Care Code Est Pt Level 4 (10513) Diagnoses Renal stones N20.0 OAB (overactive bladder) N32.81
== END 2024-04-25 11:44 | disposition home or self-care (01) ==
PROVIDERS: PCP Internal Medicine; Visit Provider Urology
DX: Z13.9 Encounter for screening, unspecified (principal)
CPT/HCPCS: 99214

== ENCOUNTER → 2024-04-25 11:04 | Outpatient (BNVA) | payer MEDICARE, MEDICAID, SELFPAY | PROVIDERS: PCP Internal Medicine; Visit Provider Urology | DX: N20.0 Calculus of kidney (principal); N32.81 Overactive bladder | CPT/HCPCS: 81003; 99212 ==

== ENCOUNTER 2025-01-13 14:46 | Outpatient (REF) | payer MEDICARE, MEDICAID, SELFPAY ==
--- NOTE | ~2025-01-13 | US_ITS ---
EXAMINATION: US RETROPERITONEAL LIMITED (RENAL ONLY) CLINICAL INFORMATION: Right flank pain.. COMPARISON: November 27, 2023. Correlated to noncontrast CT abdomen pelvis dated February 21, 2024. TECHNIQUE: Real-time ultrasound kidneys using grayscale technique. FINDINGS: RIGHT KIDNEY: 9 x 5 x 4 cm (SAG x AP x TRV). Normal echotexture. Normal renal cortical thickness. No hydronephrosis. No gross solid or cystic lesion.. LEFT KIDNEY: 10 x 5 x 3 cm (SAG x AP x TRV). Normal echotexture. Normal renal cortical thickness. No hydronephrosis. There is a 2.5 cm exophytic anechoic lesion in the upper pole without septations or flow on color Doppler interrogation. There is a 3 mm hyperechoic abnormality at the corticomedullary junction of the upper pole. US/US renal BI IMPRESSION: 3 mm nonobstructing calculus, left kidney. 2.5 cm simple exophytic cyst, left kidney.. Electronically signed by: Alvaro Ponce MD 01/13/2025 03:26 PM EDT
--- OUTSIDE RECORDS SUMMARY | 2025-01-13 15:38 | XMS_ITS | Clinical Summary ---
Author Organization [address] Address [address] [place] [address] Phone Care Team Providers Care Developmental Therapist Name Role Phone Pcp, Does Not Have A Primary Care Provider Unava ilable Allergies Active Allergy Reactions Criticality Noted Date Comments Hydrocodone Hives High 12/18/2020 Levothyroxine Hives High 12/18/2020 Morphine Anaphylaxis High 12/18/2020 Tachycardia/confusion/bradycardia Oxycodone Hives High 12/18/2020 Medications No known medications Social History Tobacco Use Types Packs/Day Years Used Date Smoking Tobacco: Never Assessed Comments Unknown Sex and Gender Information Value Date Recorded Sex Assigned at Female 12/18/2020 3:33 PM EDT Legal Sex Female 2:22 PM EDT Gender Identity Female 12/18/2020 3:33 PM EDT Sexual Orientation Straight 12/18/2020 3: 33 PM EDT Last Filed Vital Signs Vital Sign Reading Time Taken Comments Blood Pressure 112/52 12/18/2020 2:40 PM EDT Pulse 60 12/18/2020 2:40 PM EDT Temperature 36.3 C (97.3 F) 12/18/2020 2:40 PM EDT Respiratory Rate 16 12/18/2020 2:40 PM EDT Oxygen Saturation 98% 12/18/2020 2:40 PM EDT Inhaled Oxygen Concentration - - Weight 55.8 kg (123 lb) 12/18/2020 2:40 PM EDT Height 149.9 cm (4' 11 ) 12/18/2020 2:40 PM EDT Body Mass Index 24.84 12/18/2020 2:40 PM EDT Plan of Treatment Health Maintenance Due Date Last Done Comments HIV screening 1973 Hepatitis C screening 1978 Tetanus adult (Td q 10,TDAP once) 1980 Cervical cancer screening 1981 Breast cancer screening 2000 Lipid disorder screening 2000 Colon cancer screening, Colonoscopy 2005 Diabetes screening 2005 Pneumococcal Vaccine (50+ ye ars) (1 of 1 - PCV) 2010 Shingles vaccine (Shingrix) (1 of 2 - Shingrix (RZV) 2 Dose Standard Series) 2010 Covid-19 vaccine series (1 - 2023- season) 2024 Influenza vaccine 02/02/2025 05/15/2016 RSV Immunization (1 - 1-dose 75+ series) 2035 Meningococcal Vaccine Aged Out No debbi wade eligible based on patient's age to complete this topic Insurance MEDICARE [id number] MEDICAID MEDICARE [id number] MEDICAID MEDICARE [id number] MEDICAID Care Teams Developmental Therapist Relationship Specialty Start Date End Date Pcp, Does Not Have A PCP - General 12/18/20
--- OUTSIDE RECORDS SUMMARY | 2025-01-13 15:38 | XMS_ITS | Clinical Summary ---
Author Organization [facility] Address [address] [place] [address] Phone Care Team Providers Care Prevention Rn Name Role Phone Kelby Limon MD Primary Care Provider [phone] Allergies Active Allergy Reactions Criticality Noted Date Comments Adhesive Rash 11/21/2024 Beta-Blockers (Beta-Adrenergic Blocking Agts) 11/21/2024 Codeine 08/17/2022 Other Reaction(s): SEVERE ITCHY RASH Grass Pollen 11/21/2024 Other Reaction(s): Trees and shrubs Levofloxacin Angioedema,Hives,O ther High 06/09/2011 levofloxacin Levothyroxine Hives High 12/18/2020 Oxycodone Hives,Palpitations ,Rash High 12/18/2020 Other Reaction(s): Hypoxia Pollen Extracts Unknown 11/21/2024 Sulfa (Sulfonamide Antibiotics) Other,Unknown 11/21/2024 Substance with sulfonamide structure and antibacterial mechanism of action (substance) Medications atenoloL (TENORMIN) 25 mg tablet Take 0.5 tablets (12.5 mg total) by mouth 1 (one) time each day. 1 Active atorvastatin (LIPITOR) 40 mg tablet Take 1 tablet (40 mg total) by mouth at bedtime. 4 Active ARIPiprazole (ABILIFY) 5 mg tablet Take 1 tablet (5 mg total) by mouth 1 (one) time each day. Active budesonide-form oteroL (SYMBICORT) 160-4.5 mcg/actuation inhaler Inhale 2 puffs by mouth 2 (two) times a day. Active cholecalciferol (VITAMIN D-3) 50 mcg (2,000 unit) capsule Take by mouth 1 (one) time each day. Active DULoxetine (CYMBALTA) [address] capsule Take 1 capsule (60 mg total) by mouth 1 (one) time each day. 5 Active famotidine (PEPCID) 20 mg tablet Take 1 tablet (20 mg total) by mouth 1 (one) time each day. 4 Active fluticasone propionate (FLONASE) 50 mcg/actuation nasal spray Administer 1 spray into each nostril 1 (one) time each day. 5 Active gabapentin (NEURONTIN) 600 mg tablet Take 1 tablet (600 mg total) by mouth 1 (one) time each day. 4 Active hydroCHLOROthia zide (HYDRODIURIL) 25 mg tablet Take 1 tablet (25 mg total) by mouth. 4 Active levothyroxine sodium (Tirosint) 75 mcg capsule Take 1 capsule (75 mcg total) by mouth 1 (one) time each day. 5 06/12/19 26 Active metFORMIN (GLUCOPHAGE) 500 mg tablet Take 1 tablet (500 mg total) by mouth 2 (two) times a day with meals. 4 Active montelukast (Singulair) 10 mg tablet Take 1 tablet (10 mg total) by mouth at bedtime. 4 Active potassium citrate (UROCIT-K) 10 mEq (1,080 mg) CR tablet Take 1 tablet (10 mEq total) by mouth 2 (two) times a day with meals. 4 Active solifenacin (VESICARE) 5 mg tablet Take 2 tablets (10 mg total) by mouth 1 (one) time each day. 3 Active traMADoL (ULTRAM) 50 mg tablet Take 1 tablet (50 mg total) by mouth every 6 (six) hours if needed. Active Active Problems Problem Noted Date Diagnosed Date PAC (premature atrial contraction) 11/21/2024 Palpitations 11/21/2024 Assessment & Plan (11/21/2024 3:40 PM EDT): Symptoms are under good control on low-dose atenolol. EKG done in the office today shows normal sinus rhythm with a rate of 74 bpm. BMP reviewed, potassium 4.4. No change to current medical therapy. Other chest pain 11/21/2024 Assessment & Plan (11/21/2024 3:36 PM EDT): Patient reports atypical chest discomfort for several months. She has had multiple negative prior stress tests in the past, most recently a pharmacological NUC stress test in March 2023 that was normal. She is concerned that her symptoms are cardiac. I will order a coronary CTA to assess coronary anatomy for obstructive CAD. For any chest pain/discomfort, especially if associated with exertion, that lasts longer than 10-15 minutes and does not resolve with rest, patient has been encouraged to seek immediate medical attention by calling 911. Hyperlipidemia 08/17/2022 Overview (11/21/2024): Last Assessment & Plan: Well-controlled. Assessment & Plan (11/21/2024 2:57 PM EDT): Last lipid panel reviewed and under excellent control. Continue atorvastatin as prescribed. Encounters Date Type Department Care Team Description 12/01/2024 Telephone [facility] Cardiology [facility] [address] [place] [address] Mae Romero NP Appointment (Coronary CTA) 11/21/2024 2:40 PM EDT Office Visit [facility] Cardiology [facility] [address] [place] [address] Mae Romero NP Palpitations (Primary Dx); Hyperlipidemia, unspecified hyperlipidemia type; Other chest pain 10/31/2024 Telephone [facility] Cardiology [facility] [address] [place] [address] Cj Anderson MD stress test (Stress test ) 10/21/2024 Telephone [facility] [address] [facility] [address] [place] [address] Cj Anderson MD Recall Appointment from Last 3 Months Surgical History Surgery Date Site/Laterality Comments TOTAL KNEE ARTHROPLASTY PROCEDURE: HISTORICAL TOTAL KNEE REPLACE COLONOSCOPY 2018 PROCEDURE: HISTORICAL COLONOSCOPY OTHER SURGICAL HISTORY 07/18/2012 PROCEDURE: HISTORY OTHER; COMMENT: Bone density study, dual photon absorptiometry WRIST SURGERY PROCEDURE: HISTORICAL WRIST SURGERY SHOULDER SURGERY PROCEDURE: HISTORICAL SHOULDER SURGERY OTHER SURGICAL HISTORY PROCEDURE: IN RAD ABDL HYSTERECTOMY W/BI PELVIC LMPHADENECTOMY OTHER SURGICAL HISTORY PROCEDURE: HISTORY OTHER; COMMENT: Face ELBOW SURGERY PROCEDURE: HISTORICAL ELBOW SURGERY; COMMENT: fracture OTHER SURGICAL HISTORY PROCEDURE: HISTORY OTHER; COMMENT: Rhinoplasty OTHER SURGICAL HISTORY PROCEDURE: HISTORY OTHER; COMMENT: Laparoscopic adhesiolysis APPENDECTOMY PROCEDURE: HISTORICAL APPENDECTOMY OTHER SURGICAL HISTORY PROCEDURE: HISTORY OTHER; COMMENT: Excision of mastoid Medical History Medical History Date Comments Anxiety DX:Anxiety Asthma DX:Asthma Blepharophimosis, ptosis, an d epicanthus inversus syndrome DX:Blepharophimosis, ptosis, and epicanthus inversus syndrome Chronic mixed headache syndrome DX:Chronic mixed headache syndrome 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: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) Controlled type 2 diabetes m ellitus without complication ([facility] V24, [facility] V28) DX:Controlled type 2 diabete s mellitus without complication (HCC) Depression, major, in partia l remission ([facility] V24) DX:Depression, major, in par tial remission ([facility]) Esophageal reflux DX:Esophageal reflux Foot drop, right DX:Foot drop, r ight Clarisa's thyroiditis DX:Kandi chuck's thyroiditis Hearing loss, neural DX:Hearing loss, neural History of foot fracture DX:Hist ory of foot fracture History of pulmonary embolism DX :History of pulmonary embolism Hypercalciuria DX:Hypercalciuri a Hypovitaminosis D DX:Hypovitamin osis D Kidney stone DX:Kidney stone Osteoarthritis of knee DX:Osteoa rthritis of knee Osteopenia DX:Osteopenia Peripheral neuropathy DX:Periphe ral neuropathy Urinary incontinence, mixed DX:U rinary incontinence, mixed Social History Tobacco Use Types Packs/Day Years Used Date Smoking Tobacco: Never Smokeless Tobacco: Never Alcohol Use Standard Drinks/Week Comments Not Currently 0 (1 standard drink = 0.6 oz pur e alcohol) Comments Unknown Sex and Gender Information Value Date Recorded Sex Assigned at Female 09/09/2024 8:48 AM EDT Legal Sex Female 5:02 PM EST Gender Identity Female 09/09/2024 8:48 AM EDT Sexual Orientation Choose not to disclose 2024 8:48 AM EDT Obstetrics History Last Filed Vital Signs Vital Sign Reading Time Taken Comments Blood Pressure 110/74 11/21/2024 2:59 PM EDT Pulse 74 11/21/2024 2:59 PM EDT Temperature - - Respiratory Rate - - Oxygen Saturation 98% 11/21/2024 2:59 PM EDT Inhaled Oxygen Concentration - - Weight 53.5 kg (118 lb) 11/21/2024 2:59 PM EDT Height 149.9 cm (4' 11 ) 11/21/2024 2:59 PM EDT Body Mass Index 23.83 11/21/2024 2:59 PM EDT Plan of Treatment Upcoming Encounters Date Type Department Care Team (Late st Contact Info) Description 01/16/2025 10:00 AM EDT Appointment [facility] Bone Density [address] [place] [phone] 01/16/2025 10:45 AM EDT Appointment [facility] at [address] [address] Health Maintenance Due Date Last Done Comments Diabetes: Annual Foot Exam 1970 Diabetes: Annual Retina Eye Exam 1970 Cervical Cancer Screening: Pap Smear 1981 Pneumococcal Vaccine: 50+ Years (2 of 2 - PCV) 10/20/2007 10/19/2006 Zoster Vaccines (1 of 2) 2010 Diabetes: Annual GFR (Glomerular Filtration Rate) 10/30/2016 10/31/2015 Cholesterol Screening (Lipid Panel) 05/13/2022 Colorectal Cancer Screening: Colonoscopy 05/13/2022 HIV Screening 05/13/2022 Hepatitis C Screening 05/13/2022 Social Influencers of Health Screening 05/13/2022 Medicare Annual Wellness Visit 03/20/2024 03/20/2023 Depression Screening 06/04/2024 DTaP,Tdap,and Td Vaccines (3 - Td or Tdap) 08/13/2024 08/13/2014, 12/19/2002 Diabetes: Annual Urine Albumin-Creatinine Ratio (uACR) 10/31/2024 Diabetes: Blood Sugar Control Test (HGBA1C) 10/31/2024 10/15/2015 Influenza Vaccine (#1) 2025 , 02/22/2023, 03/14/2022, Additional history exists Breast Cancer Screening 01/15/2026 01/16/20, 01/12/2023, 08/17/2021, Additional history exists Osteoporosis Screening (Bone Density Screening) 01/12/2033 01/12/2023, 01/10/2021, 12/25/2018 RSV Immunization Adult Patients Completed 03/09/2023 COVID-19 Vaccine Completed 04/08/2024, , 04/19/2022, Additional history exists HIB Vaccines Aged Out No longer eligi ble based on patient's age to complete this topic HPV Vaccines Aged Out No longer eligi ble based on patient's age to complete this topic Hepatitis A Vaccines Aged Out No long er eligible based on patient's age to complete this topic Hepatitis B Vaccines Aged Out No long er eligible based on patient's age to complete this topic IPV Vaccines Aged Out No longer eligi ble based on patient's age to complete this topic MMR Vaccines Aged Out No longer eligi ble based on patient's age to complete this topic Meningococcal ACWY Vaccine Aged Out N o longer eligible based on patient's age to complete this topic Meningococcal B Vaccine Aged Out No l onger eligible based on patient's age to complete this topic RSV Immunization Patients Under 20 months Aged Out No longer eligible based on patient's age to complete this topic Varicella Vaccines Aged Out No longer eligible based on patient's age to complete this topic Procedures Procedure Name Priority Date/Time Associated Diagnosis Comments ECG 12-LEAD Routine 11/21/2024 3:41 PM EDT Palpitations Hyperlipidemia, unspecified hyperlipidemia type [facility] SCREENING DIGITAL Routine 01/16/2024 3:44 PM EDT Encounter for screening mammogram for malignant neoplasm of breast [facility] DEXA AXIAL SKELETON Routine 01/12/2023 10:40 AM EDT Encounter for screening for osteoporosis from Last 3 Months or Most Recently Relevant to Health Maintenance Results * ECG 12 lead (11/21/2024 3:41 PM EDT) Ventricular Rate ECG 74 BPM GEMUSE Atrial Rate 74 BPM GEMUSE P-R Interval 144 ms GEMUSE QRS Duration 90 ms GEMUSE Q-T Interval 402 ms GEMUSE QTc 446 ms GEMUSE P Wave [place] English 27 degrees GEMUSE R [place] 26 degrees GEMUSE T [place] 44 degrees GEMUSE ECG Interpretation Normal sinus rhythm Incomplete right bundle branch block When compared with ECG of 08/05/2017 no change Confirmed by Jason BROOKS, FAUSTO ([id number]) on 11/26/2024 3:58:03 PM GEMUSE 11/21/2024 3:02 PM EDT 11/26/2024 3:58 PM EDT Mae Romero NP ECG ORDERABLES Edited Result - Final GEMUSE * YASMINE SCREENING DIGITAL (01/16/2024 3:44 PM EDT) Anatomical Region Laterality Modality Mammography 01/16/2024 9:07 AM EDT Narrative 01/16/2024 3:44 PM EDT [facility] Diagnostic Imaging Department [address] [place] [id number] Patient: TEZ JENKINSO.B./Age/Sex: 1960 - 63 - F Unit#: [id number] Location/Status: SPDIMAM/REG CLI Mnemonic/Ordering Site: DIGSC/SPMAM Ordering Physician: JENNIFER ZAPATA MD [facility] Screening Digital - 01/16/24 - 28 Report Status:Signed EXAM: [facility] Screening Digital EXAM DATE AND TIME: 01/16/2024 9:28 AM HISTORY: Screening. Left breast biopsy in 1989, pathology benign. COMPARISON: 01/12/23, 08/17/21, 08/05/20, 12/25/18 TECHNIQUE: Bilateral digital breast tomosynthesis was performed in the CC and MLO projections. Computer aided detection with [employer] 3D 3.1 was employed. TISSUE DENSITY: c. The breasts are heterogeneously dense, which may obscure small masses. FINDINGS: No suspicious masses, grouped microcalcifications, or areas of architectural distortion are seen. Microcalcifications loosely grouped in the lateral right breast are unchanged from the previous studies, consistent with a benign process. Scattered microcalcifications are seen elsewhere in both breasts, also unchanged. The skin and vascularity are unremarkable. IMPRESSION: Stable mammographic appearance of the breasts. No evidence of malignancy is seen. A negative mammogram in the presence of a clinically suspicious palpable abnormality does not preclude the possibility of malignancy or alter the indications for biopsy. BI-RADS: Category 2: Benign RECOMMENDATION(S): 1: Routine screening mammogram BILATERAL in 1 year. Dictating Physician: ABY VIEYRA MD Electronically Signed by: ABY VIEYRA MD Dic Date/Time: 01/16/24 1543 Sign date/Time: 01/16/24 1544 Procedure Note Aby Vieyra MD - 03/19/2024 [facility] Diagnostic Imaging Department [address] [place] [id number] Patient: TEZ JENKINS /Age/Sex: 1960 63 - F Unit#: [id number] Location/Status: SPDIMAM/REG CLI Mnemonic/Ordering Site: [facility] Ordering Physician: JENNIFER ZAPATA MD [facility] Screening Digital - 01/16/24 - 927 Report Status:Signed EXAM: [facility] Screening Digital EXAM DATE AND TIME: 01/16/2024 9:28 AM HISTORY: Screening. Left breast biopsy in 1989, pathology benign. COMPARISON: 01/12/23, 08/17/21, 08/05/20, 12/25/18 TECHNIQUE: Bilateral digital breast tomosynthesis was performed in the CCand MLO projections. Computer aided detection with [employer] 3D 3.1was employed. TISSUE DENSITY: c. The breasts are heterogeneously dense, which mayobscure small masses. FINDINGS: No suspicious masses, grouped microcalcifications, or areas ofarchitectural distortion are seen. Microcalcifications loosely grouped in the lateralright breast are unchanged from the previous studies, consistent with a benign process. Scattered microcalcifications are seen elsewhere in both breasts,also unchanged. The skin and vascularity are unremarkable. IMPRESSION: Stable mammographic appearance of the breasts. No evidence of malignancyis seen. A negative mammogram in the presence of a clinically suspicious palpable abnormality does not preclude the possibility of malignancy or alter the indications for biopsy. BI-RADS: Category 2: Benign RECOMMENDATION(S): 1: Routine screening mammogram BILATERAL in 1 year. Dictating Physician: ABY VIEYRA MD Electronically Signed by: ABY VIEYRA MD Dic Date/Time: 01/16/24 1543 Sign date/Time: 01/16/24 1547 us Jennifer Zapata MD IMG BI PROCEDURES Final Resul t * YASMINE DEXA AXIAL SKELETON (01/12/2023 10:40 AM EDT) Anatomical Region Laterality Modality Mammography 01/12/2023 9:46 AM EDT Narrative 01/12/2023 10:40 AM EDT [facility] Diagnostic Imaging Department [address] [place], [place] [id number] Patient: TEZ JENKINS Meg GarciaB./Age/Sex: 1960 - 62 - F Unit#: [id number] Location/Status: [facility] CLI Mnemonic/Ordering Site: MAMDEXAAX/SPMAM Ordering Physician: LARRY MCDANIELS MD Yasmine Dexa Axial Skeleton - 01/12/23 - 1032 Report Status:Signed HISTORY: The patient is a 62-year-old postmenopausal female with clinical concern for metabolic bone disease. FINDINGS: Dual energy x-ray absorptiometry of the lumbar spine and femurs is performed. The mean bone mineral density at L1-L4 is 1.135 gm/cm2 which is 96% of that of young normals and 117% of that of age matched controls. This yields a T-score of -0.4 and a Z-score of 1.3 and there is therefore no evidence of osteoporosis or osteopenia here. The mean bone mineral density of the femurs bilaterally is 0.837 gm/cm2 which is 83% of that of young normals and 99% of that of age matched controls. This yields a T-score of -1.4 and a Z-score of -0.1 which is diagnostic of osteopenia. IMPRESSION: 1. Osteopenia. There has been an increase of 6.5% in bone mineral density in the lumbar spine since the prior examination of 01/10/2021. There has been an increase of 2.7% in bone mineral density in the right femur and an increase of 2.9% in bone mineral density in the left femur. 2. FRAX analysis yields a 10-year probability of major osteoporotic fracture of 11.6% and a 10-year probability of hip fracture of 0.4%. Code 88388 Dictating Physician: ZAIRE TAVAREZ MD Electronically Signed by: ZAIRE TAVAREZ MD Dic Date/Time: 01/12/23 1036 Sign date/Time: 01/12/23 1040 Procedure Note Zaire Tavarez MD - 07/10/2023 [facility] Diagnostic Imaging Department [address] [place] [address] Patient: TEZ JENKINS Meg GarciaB./Age/Sex: 1960 - 62 - F Unit#: [id number] Location/Status: [facility] Ordering Physician: LARRY MCDANIELS MD Yasmine Dexa Axial Skeleton - 01/12/23 - 103 Report Status:Signed HISTORY: The patient is a 62-year-old postmenopausal female withclinical concern for metabolic bone disease. FINDINGS: Dual energy x-ray absorptiometry of the lumbar spine and femursis performed. The mean bone mineral density at L1-L4 is 1.135 gm/cm2 which is96% of that of young normals and 117% of that of age matched controls. Thisyields a T-score of -0.4 and a Z-score of 1.3 and there is therefore no evidenceof osteoporosis or osteopenia here. The mean bone mineral density of the femurs bilaterally is 0.837 gm/cj0hbjpq is 83% of that of young normals and 99% of that of age matched controls.This yields a T-score of -1.4 and a Z-score of -0.1 which is diagnostic of osteopenia. IMPRESSION: 1. Osteopenia. There has been an increase of 6.5% in bone mineral densityin the lumbar spine since the prior examination of 01/10/2021. There has beenan increase of 2.7% in bone mineral density in the right femur and anincrease of 2.9% in bone mineral density in the left femur. 2. FRAX analysis yields a 10-year probability of major osteoporoticfracture of 11.6% and a 10-year probability of hip fracture of 0.4%. Code 16643 Dictating Physician: ZAIRE TAVAREZ MD Electronically Signed by: ZAIRE TAVAREZ MD Dic Date/Time: 01/12/23 1036 Sign date/Time: 01/12/23 1040 Larry Mcdaniels MD IMG BI PROCEDURES Final Result from Last 3 Months or Most Recently Relevant to Health Maintenance Insurance MEDICARE [place]ICA[place] - [place] Care Teams Prevention Rn Relationship Specialty Start Date End Date Kelby Limon MD [address] [place] [address] PCP - General Internal Medicine 02/02/22
== END 2025-01-13 14:47 | disposition home or self-care (01) ==
LOC: HO.US 14:46
PROVIDERS: PCP Internal Medicine; Visit Provider Urology
DX: R10.9 Unspecified abdominal pain (principal); N32.81 Overactive bladder; N28.1 Cyst of kidney, acquired; N20.0 Calculus of kidney
CPT/HCPCS: 76775

== ENCOUNTER → 2025-01-13 14:48 | Outpatient (BNV) | payer MEDICARE, MEDICAID, SELFPAY | PROVIDERS: PCP Internal Medicine; Visit Provider Radiology Diagnostic Radiology | DX: R10.11 Right upper quadrant pain (principal) | CPT/HCPCS: 76775 ==

== ENCOUNTER 2025-01-23 10:21 | Outpatient (AMB) | payer MEDICARE, MEDICAID, SELFPAY ==
--- OUTSIDE RECORDS SUMMARY | 2025-01-23 10:24 | XMS_ITS | Clinical Summary ---
Author Organization [address] Address [address] [place] [address] Phone Care Team Providers Care Youth Leader Name Role Phone Pcp, Does Not Have [...] age to complete this topic Insurance MEDICARE [id number] MEDICAID MEDICARE [id number] MEDICAID MEDICARE [id number] MEDICAID Care Teams Youth Leader Relationship Specialty Start Date End Date Pcp, Does Not Have A PCP - General 12/18/20
--- OUTSIDE RECORDS SUMMARY | 2025-01-23 10:24 | XMS_ITS | Clinical Summary ---
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 Name Role Phone Kelby Limon MD Primary Care Provider [phone] Allergies Active Allergy Reactions Criticality Noted Date [...] Encounters Date Type Department Care Team Description 01/16/2025 9:43 AM EDT - 01/16/2025 11:59 PM EDT Hospital [facility]counter [facility] [address] [place] [phone] Encounter for screening mammogram for breast cancer Discharge Disposition: Home or Self Care 01/16/2025 9:43 AM EDT - 01/16/2025 11:59 PM EDT Hospital Encounter [facility] Bone Density [address] [place] [phone] Age-related osteoporosis without current pathological fracture Discharge Disposition: Home or Self Care 01/15/2025 Telephone [facility] - [address] [place] [phone] Yamilex Maldonado [place] Results (See note) 12/01/2024 Telephone [facility] - [facility] [address] [place] [phone] Mae Romero NP Appointment (Coronary CTA) 11/21/2024 2:40 PM EDT Office Visit [facility] - [address] [place] [phone] Mae Romero NP Palpitations (Primary Dx); Hyperlipidemia, unspecified hyperlipidemia type; Other chest pain 10/31/2024 Telephone [facility] - [address] [place] [phone] Cj Anderson MD stress test (Stress test ) from Last 3 Months Surgical History Surgery Date Site/Laterality Comments TOTAL KNEE ARTHROPLASTY PROCEDURE: HISTORICAL TOTAL KNEE REPLACE COLONOSCOPY 2018 PROCEDURE: HISTORICAL COLONOSCOPY OTHER SURGICAL HISTORY 07/18/2012 PROCEDURE: HISTORY OTHER; COMMENT: Bone density study, dual photon absorptiometry WRIST SURGERY PROCEDURE: HISTORICAL WRIST SURGERY SHOULDER SURGERY PROCEDURE: HISTORICAL SHOULDER SURGERY OTHER SURGICAL HISTORY PROCEDURE: ID RAD ABDL HYSTERECTOMY W/BI PELVIC LMPHADENECTOMY OTHER [...] type 2 diabetes m ellitus without complication ([facility] V24, [facility] V28) DX:Controlled type 2 diabete s mellitus without complication (HCC) Depression, major, in partia l remission ([facility] V24) DX:Depression, major, in par tial remission ([facility]) Esophageal reflux DX:Esophageal reflux Foot drop, right [...] 11/21/2024 2:59 PM EDT Plan of Treatment Health Maintenance Due Date Last Done Comments Diabetes: Annual Foot Exam 1970 Diabetes: Annual Retina Eye Exam 1970 Cervical Cancer Screening: Pap Smear 1981 Pneumococcal Vaccine: 50+ Years (2 of 2 - PCV) 10/20/2007 10/19/2006 Zoster Vaccines (1 of 2) 2010 Cholesterol Screening (Lipid Panel) 05/13/2022 Colorectal Cancer [...] 2025 , 02/22/2023, 03/14/2022, Additional history exists Diabetes: Annual GFR (Glomerular Filtration Rate) 01/14/2026 01/14/2025, 10/31/2015 Breast Cancer Screening 01/16/2027 01/17/20, 01/16/2024, 01/12/2023, Additional history exists Osteoporosis Screening (Bone Density Screening) 01/16/2035 01/16/2025, 01/12/2023, 01/10/2021, Additional history exists RSV Immunization Adult Patients Completed 03/09/2023 COVID-19 [...] Procedure Name Priority Date/Time Associated Diagnosis Comments BD BONE DENSITY DXA AXIAL SKELETON Routine 01/16/2025 10:22 AM EDT Age-related osteoporosis without current pathological fracture MG MAMMO DIGITAL SCREENING W TRISTIAN BILAT Routine 01/16/2025 10:09 AM EDT Encounter for screening mammogram for breast cancer BASIC METABOLIC PANEL Routine 01/14/2025 11:06 AM EDT ECG 12-LEAD Routine 11/21/2024 3:41 PM EDT Palpitations Hyperlipidemia, unspecified hyperlipidemia type from Last 3 Months Results * BD Bone Density DXA Axial Skeleton (01/16/2025 10:22 AM EDT) Anatomical Region Laterality Modality Wrist, Hip, L-spine Bone Densito metry 01/16/2025 10:2 8 AM EDT Impressions 01/16/2025 10:30 AM EDT 1. Osteopenia. There has been a decrease of 1.1% in bone mineral density in the lumbar spine since the prior examination of 01/12/2023. There has been an increase of 2.3% in bone mineral density in the right femur and an increase of 0.3% in bone mineral density in the left femur. 2. FRAX analysis yields a 10-year probability of major osteoporotic fracture of 17.7% and a 10-year probability of hip fracture of 0.9%. Code 44433 -------- FINAL REPORT -------- Dictated By: Russel Tavarez Dictated Date: 01/16/2025 10:28 ET Assigned Physician: Russel Tavarez Reviewed and Electronically Signed By: Russel Tavarez Signed Date: 01/16/2025 10:30 ET Workstation ID: [id number] Transcribed By: Self Edit Transcribed Date: 01/16/2025 10:28 ET Narrative 01/16/2025 10:30 AM EDT HISTORY: The patient is a 64-year-old postmenopausal female on chronic glucocorticoid therapy, with clinical concern for metabolic bone disease. FINDINGS: Dual energy x-ray absorptiometry of the lumbar spine and femurs is performed. The mean bone mineral density at L1-L4 is 1.123 gm/cm2 which is 95% of that of young normals and 119% of that of age matched controls. This yields a T-score of -0.5 and a Z-score of 1.5 and there is therefore no evidence of osteoporosis or osteopenia here. The mean bone mineral density of the femurs bilaterally is 0.848 gm/cm2 which is 84% of that of young normals and 103% of that of age matched controls. This yields a T-score of -1.3 and a Z-score of 0.2 which is diagnostic of osteopenia. The T-score of the left femur is -1.7 which is diagnostic of osteopenia. Procedure Note Russel Tavarez MD - 01/16/2025 HISTORY: The patient is a 64-year-old postmenopausal female on chronicglucocorticoid therapy, with clinical concern for metabolic bonedisease. FINDINGS: Dual energy x-ray absorptiometry of the lumbar spine and femursis performed. The mean bone mineral density at L1-L4 is 1.123 gm/cm2 whichis 95% of that of young normals and 119% of that of age matched controls.This yields a T-score of -0.5 and a Z-score of 1.5 and there is thereforeno evidence of osteoporosis or osteopenia here. The mean bone mineral density of the femurs bilaterally is 0.848 gm/ph2xrybu is 84% of that of young normals and 103% of that of age matchedcontrols. This yields a T-score of -1.3 and a Z-score of 0.2 which isdiagnostic of osteopenia. The T- score of the left femur is -1.7 which isdiagnostic of osteopenia. IMPRESSION: 1. Osteopenia. There has been a decrease of 1.1% in bone mineral densityin the lumbar spine since the prior examination of 01/12/2023. There hasbeen an increase of 2.3% in bone mineral density in the right femur and anincrease of 0.3% in bone mineral density in the left femur. 2. FRAX analysis yields a 10-year probability of major osteoporoticfracture of 17.7% and a 10-year probability of hip fracture of 0.9%. Code 80772 -------- FINAL REPORT -------- Dictated By: Russel Tavarez Dictated Date: 01/16/2025 10:28 ET Assigned Physician: Russel Tavarez Reviewed and Electronically Signed By: Russel Tavarez Signed Date: 01/16/2025 10:30 ET Workstation ID: [id number] Transcribed By: Self Edit Transcribed Date: 01/16/2025 10:28 ET us Larry Guo MD IMG DXA PROCEDURES Final Result * MG Mammo Digital Screening w Tristian bilat (01/16/2025 10:09 AM EDT) Anatomical Region Laterality Modality Breast Bilateral Mammography 01/16/2025 10:5 4 AM EDT Impressions 01/16/2025 11:19 AM EDT No mammographic evidence of malignancy. No suspicious interval change. A negative mammogram in the presence of a clinically suspicious palpable abnormality does not preclude the possibility of malignancy or alter the indications for biopsy. ASSESSMENT: BI-RADS 1: NEGATIVE RECOMMENDATION(S): 1: Routine screening mammogram BILATERAL in 1 year. [facility] location[facility] [address], [address] -------- FINAL REPORT -------- Dictated By: True Norwood Dictated Date: 01/16/2025 10:54 ET Assigned Physician: True Norwood Reviewed and Electronically Signed By: True Norwood Signed Date: 01/16/2025 11:19 ET Workstation ID: [id number] Transcribed By: Self Edit Transcribed Date: 01/16/2025 10:55 ET Narrative 01/16/2025 11:19 AM EDT EXAM: SCREENING MAMMOGRAPHY, BILATERAL HISTORY: SCREENING. No additional history. COMPARISON: 01/16/24, 01/12/23, 08/17/21, 08/05/20 TECHNIQUE: Synthesized CC and MLO projections of each breast. Tomosynthesis of each breast in the CC and MLO projections. ADDITIONAL IMAGING: None Computer-aided detection was employed with the i[employer] AI 3-D. TISSUE DENSITY: The breasts are extremely dense, which lowers the sensitivity of mammography. (BI-RADS category D) FINDINGS: RIGHT BREAST: No suspicious mass. No suspicious calcification. No distortion. No additional suspicious right breast findings LEFT BREAST: No suspicious mass. No suspicious calcification. No distortion. No additional suspicious left breast findings Procedure Note True Norwood MD - 01/16/2025 EXAM: SCREENING MAMMOGRAPHY, BILATERAL HISTORY: SCREENING. No additional history. COMPARISON: 01/16/24, 01/12/23, 08/17/21, 08/05/20 TECHNIQUE: Synthesized CC and MLO projections of each breast.Tomosynthesis of each breast in the CC and MLO projections. ADDITIONAL IMAGING: None Computer-aided detection was employed with the [employer] AI 3-D. TISSUE DENSITY: The breasts are extremely dense, which lowers thesensitivity of mammography. (BI-RADS category D) FINDINGS: RIGHT BREAST: No suspicious mass. No suspicious calcification. No distortion. Noadditional suspicious right breast findings LEFT BREAST: No suspicious mass. No suspicious calcification. No distortion. Noadditional suspicious left breast findings IMPRESSION: No mammographic evidence of malignancy. No suspicious interval change. A negative mammogram in the presence of a clinically suspicious palpableabnormality does not preclude the possibility of malignancy or alter theindications for biopsy. ASSESSMENT: BI-RADS 1: NEGATIVE RECOMMENDATION(S): 1: Routine screening mammogram BILATERAL in 1 year. [facility] location[facility] at [address], [address] -------- FINAL REPORT -------- Dictated By: True Norwood Dictated Date: 01/16/2025 10:54 ET Assigned Physician: True Norwood Reviewed and Electronically Signed By: True Norwood Signed Date: 01/16/2025 11:19 ET Workstation ID: [id number] Transcribed By: Self Edit Transcribed Date: 01/16/2025 10:55 ET us Self Referral Sppl IMG BI PROCEDURES Final Resul t * Basic metabolic panel (01/14/2025 11:06 AM EDT) Glucose 89 70 - 99 mg/dL [facility] 1 Blood Urea Nitrogen (BUN) 12 8 - 27 mg/dL [facility] 1 Creatinine 0.68 0.57 - 1.00 mg/dL [facility] 1 eGFR 97 >59 mL/min/1.7 3 [facility] 1 BUN/Creatinine Ratio 18 12 - 28 [facility] 1 Sodium 144 134 - 144 mmol/L [facility] 1 Potassium 4.0 3.5 - 5.2 mmol/L [facility] 1 Chloride 103 96 - 106 mmol/L [facility] 1 Carbon Dioxide 25 20 - 29 mmol/L [facility] 1 Calcium 10.2 8.7 - 10.3 mg/dL [facility] 1 01/14/2025 11:0 6 AM EDT 01/14/2025 Narrative [facility] 1 - 01/15/2025 1:06 AM EDT Performed at: [address] [facility] [id number] Gas Regulator Repairer Helper: Aylin Wood MD, Phone: [phone] Mae Romero NP LAB BLOOD ORDERABLES Final Resu lt Performing Organization Address City/State/[facility] Co de Phone Number [facility] 1 * ECG 12 lead (11/21/2024 3:41 PM EDT) [facility] Ventricular Rate ECG 74 BPM GEMUSE Atrial Rate 74 BPM GEMUSE P-R Interval 144 ms GEMUSE QRS Duration 90 ms GEMUSE Q-T Interval 402 ms GEMUSE QTc 446 ms GEMUSE P Wave Ethel 27 degrees GEMUSE R Ethel 26 degrees GEMUSE T Ethel 44 degrees GEMUSE ECG Interpretation Normal sinus rhythm Incomplete right bundle branch block When compared with ECG of 08/05/2017 no change Confirmed by Jason BROOKS, FAUSTO ([id number]) on 11/26/2024 3:58:03 PM GEMUSE 11/21/2024 3:02 PM EDT 11/26/2024 3:58 PM EDT Mae Romero NP ECG ORDERABLES Edited Result - Final GEMUSE from Last 3 Months Insurance MEDICARE MEDICAID - [place] Care Teams Box Printing Machine Operator Relationship Specialty Start Date End Date Kelby Limon MD [address] [place] [address] PCP - General Internal Medicine 02/02/22
--- NOTE | 2025-01-23 10:56 | MHC.OFFVIS ---
Intake Visit Reasons: 9 month follow up/ US Intake Note: Patient is present for 9m follow up/US 01/13 Renal Ultrasound Urology Medication:Solifenacin Antibiotic Allergy:LEVOFLOXACIN,SULFA Blood Thinner:NONE PVR:9ml Financial Quantitative Analyst Required: No Allergies adhesive tape Allergy (Intermediate, Verified 01/23/25 10:57) redness/itching codeine Allergy (Intermediate, Verified 01/23/25 10:57) hives hydrocodone (Vicodin) Allergy (Intermediate, Verified 01/23/25 10:57) hives levofloxacin (Levaquin) Allergy (Intermediate, Verified 01/23/25 10:57) hives oxycodone (Percocet) Allergy (Intermediate, Verified 01/23/25 10:57) hives Sulfa (Sulfonamide Antibiotics) Allergy (Intermediate, Verified 01/23/25 10:57) hives morphine Allergy (Unknown, Verified 01/23/25 10:57) Unknown tolterodine Adverse Reaction (Severe, Uncoded 04/25/24 11:09) Blurry Vision myrbetriq Adverse Reaction (Unknown, Uncoded 04/25/24 11:09) Unknown Medication List - Last Reconciled 01/23/25 by Padmini Buenrostro MD albuterol sulfate 90 mcg/actuation 2 puffs inhalation QID PRN aripiprazole 5 mg PO DAILY atenolol 25 mg PO DAILY atorvastatin 40 mg PO DAILY blood sugar diagnostic (FreeStyle Lite Strips) As directed budesonide-formoterol 160-4.5 mcg/actuation (Symbicort) 2 puffs inhalation BID cholecalciferol (vitamin D3) (Vitamin D3) 25 mcg PO DAILY diclofenac sodium 75 mg PO DAILY duloxetine (Cymbalta) 30 mg PO DAILY 7 days duloxetine (Cymbalta) 60 mg PO DAILY 7 days famotidine 20 mg PO BID gabapentin 600 mg PO BID hydrochlorothiazide 25 mg PO BID ibandronate 150 mg PO QMONTH levothyroxine (Synthroid) 88 mcg PO DAILY metformin 500 mg PO BID metformin 500 mg PO BID montelukast 10 mg PO DAILY potassium citrate ER 10 mEq PO BID 90 days solifenacin (Vesicare) 10 mg PO DAILY 90 days tramadol 50 mg PO Q8H PRN 3 days HPI Comments Details: 01/23/25--Lucy is a 63-year-old female who presents today to the office for a follow-up. She is followed for kidney stones and overactive bladder. The patient is prescribed VESIcare. Urinalysis today negative leukocytes negative blood. Bladder scan PVR 9 mL. Renal ultrasound 01/13/2025-3 mm-left kidney stone, small exophytic cyst left kidney. Lucy states she has been doing well she has not had any urine leakage in the past 6 months. Denies any irritative voiding symptoms. We will continue to monitor kidneys. Continue VESIcare 10 mg daily. Telehealth follow-up. 04/25/24--Lucy is a 63-year-old female who presents today to the office for a follow-up. She is followed for kidney stones and overactive bladder. LV -02/28/24--Renal US 11/2023 reviewed-- mild right hydronephrosis, bilateral kidney stones. CT KUB official transcript pending. Cont vesicare for OAB symptoms. CTAP-02/21/24--Punctate nonobstructing bilateral renal calculi. No hydronephrosis. Will continue to monitor. 02/28/24--history of kidney stones, oab. Telehealth follow-up to review imaging and test results. CT stone 02/21/2024 transcript. Discussed 24 hour urine results: Total volume 940 mL, Calcium 128 mg; Oxalate 16 mg, Sodium 116, Citrate 603 mg. Instructed on importance of fluid intake, Low oxalate diet, low sodium diet. Continue potassium citrate and VESIcare. 01/03/24--Lucy is a 63-year-old female who presents today to the office for a follow-up. She is followed for kidney stones and overactive bladder. She is prescribed potassium citrate and hydrochlorothiazide by Dr. Chew. History of prior right ESWL. Today she States she had some right flank pain had started several weeks ago and has improved. Renal US 11/2023 reviewed-- mild right hydronephrosis, bilateral kidney stones. Will check a CT KUB rule out any persistent ureteral calcifications. Cont vesicare for OAB symptoms. Check 24 hour urine. 02/16/2023?She is followed today for cystoscopy procedure. She has seen Nurse Practitioner Giovana Gonzales on 01/12/2023 for PVR. The patient was advised to follow-up in office Cystoscopy during that time. She mentions having right flank pain. She rates that pain as 5 on a scale of 1/10. She had lithotripsy in the past for the history of kidney stones in the past. Patient has also had Cystoscopy procedure in the past. She has been taking potassium citrate 10 mEq twice a day and Vesicare 10 mg daily. I reviewed the retroperitoneum US results from 02/12/2023 revealed trace right hydronephrosis new from prior. Stable 6 mm nonobstructing right lower pole renal stone. Cystoscopy procedure: Cystoscopy findings: suspicious bladder lesion found. [facility] Medical History Hx of eye disorder PAC (premature atrial contraction) Hx of cardiovascular stress test Status post placement of bone anchored hearing aid (BAHA) IBS (irritable bowel syndrome) BPES syndrome Asthma Major depressive disorder, recurrent severe without psychotic features Gastroesophageal reflux disease Hypothyroidism Type II diabetes mellitus Urgency of urination Renal stones Surgical History Hx of appendectomy History of surgery of head History of surgery on wrist Hx of shoulder surgery S/P ear surgery Hx of eye surgery History of bilateral knee replacement H/O total hysterectomy Social History Household Members: Family Household Members Other:: sister and two nieces Housing: Apartment Patient Tobacco Use Status: Never used Tobacco Review of Systems Const All systems reviewed & are unremarkable except as noted in HPI and below Reports no additional complaints Eyes Reports no additional complaints ENT Reports no additional complaints Card Reports no additional complaints Resp Reports no additional complaints GI Reports no additional complaints Reports as per HPI Musc Reports no additional complaints Skin/Breast Reports system reviewed and no additional complaints, except as documented Neuro Reports no additional complaints Psych Reports no additional complaints Endo Reports no additional complaints Ranjith/Lymph Reports no additional complaints Aller/Immun Reports no additional complaints Results Reviewed Results Reviewed: Date of Service: 01/13/25 US RETROPERITONEAL LIMITED (RENAL ONLY) CLINICAL INFORMATION: Right flank pain.. COMPARISON: November 27, 2023. Correlated to noncontrast CT abdomen pelvis dated February 21, 2024. TECHNIQUE: Real-time ultrasound kidneys using grayscale technique. FINDINGS: RIGHT KIDNEY: 9 x 5 x 4 cm (SAG x AP x TRV). Normal echotexture. Normal renal cortical thickness. No hydronephrosis. No gross solid or cystic lesion.. LEFT KIDNEY: 10 x 5 x 3 cm (SAG x AP x TRV). Normal echotexture. Normal renal cortical thickness. No hydronephrosis. There is a 2.5 cm exophytic anechoic lesion in the upper pole without septations or flow on color Doppler interrogation. There is a 3 mm hyperechoic abnormality at the corticomedullary junction of the upper pole. IMPRESSION: 3 mm nonobstructing calculus, left kidney. 2.5 cm simple exophytic cyst, left kidney.. Date of Service: 02/21/24 CT ABDOMEN AND PELVIS WITHOUT CONTRAST CLINICAL INFORMATION: Calculus of kidney. COMPARISON: Renal ultrasound 11/27/2023. TECHNIQUE: Multidetector volumetric imaging was performed from the superior aspect of the liver through the pubic symphysis. Sagittal and coronal reformatted images were obtained on the technologist's workstation. This CT examination was performed using dose optimization techniques as appropriate, variously including the following: *Automated exposure control *Adjustment of mA and/or kV according to patient size (this includes techniques or standardized protocols for targeted exams where dose is matched to indication/reason for exam; i.e. extremities or head) *Use of iterative reconstruction technique DLP: 277 mGy-cm FINDINGS: LUNG BASES: The visualized lung bases are unremarkable. LIVER, GALLBLADDER, AND BILIARY TREE: The liver is normal in size, shape, and attenuation. No focal hepatic lesion or biliary ductal dilatation is present. The gallbladder is unremarkable with no evidence of radiopaque gallstones, gallbladder wall thickening, or obvious pericholecystic inflammatory changes. PANCREAS: No discrete pancreatic mass. No pancreatic ductal dilatation. SPLEEN: Unremarkable. ADRENAL GLANDS: No adrenal mass. KIDNEYS AND URETERS: Punctate nonobstructing calculus upper pole right kidney 6.4 cm from posterolateral skin surface. Three punctate nonobstructing calculi in the left upper, mid, lower kidney 6.4-8.6 cm from posterolateral skin surface. There is no hydronephrosis. 2.8 cm simple cyst in the upper left kidney for which no imaging follow-up is recommended. BLADDER: Decompressed and not well evaluated. No discrete bladder mass or bladder calculus GASTROINTESTINAL TRACT: The small and large bowel are normal in caliber. No perceptible focal bowel wall thickening or inflammatory changes. ABDOMINAL WALL: Diastases recti. No discrete hernia evident. LYMPH NODES: No adenopathy. No pericardial effusion. VASCULAR: No aortic aneurysm. PELVIC VISCERA: Hysterectomy. No pelvic mass. OSSEOUS STRUCTURES: Moderate to severe degenerative disc disease at L2-L3 and L5-S1. No destructive osseous lesions. IMPRESSION: Punctate nonobstructing bilateral renal calculi. No hydronephrosis. Date of Service: 11/27/23 EXAMINATION: US RETROPERITONEAL LIMITED (RENAL ONLY) CLINICAL INFORMATION: Abdominal pain. COMPARISON: KUB 04/04/2023 Renal ultrasound 02/12/2023 TECHNIQUE: Real-time imaging of the bladder FINDINGS: RIGHT KIDNEY: 8.9 x 4.8 x 4.0 cm (SAG x AP x TRV). The kidney is normal in size, contour, and echogenicity. Renal cortical thickness is normal. No focal parenchymal lesions. Mild persistent hydronephrosis. A few punctate foci with twinkle artifact are consistent with nonobstructing calculi. LEFT KIDNEY: 10.3 x 5.0 x 3.5 cm (SAG x AP x TRV). The kidney is normal in size, contour, and echogenicity. Renal cortical thickness is normal. No hydronephrosis. 2.4 x 2.5 x 2.7 cm simple upper pole cyst is seen, no imaging follow-up recommended. 0.2 x 0.2 x 0.3 cm nonobstructing calculus is seen in the lower pole. IMPRESSION: 1. Mild persistent right hydronephrosis. 2. Bilateral nonobstructing renal calculi. Date of Service: 02/12/23 EXAMINATION:? US RETROPERITONEAL COMPLETE (RENAL) CLINICAL INFORMATION: Calculus of kidney. COMPARISON:? Ultrasound retroperitoneal limited (renal only) 06/06/2022 and 06/09/2021. FINDINGS: RIGHT KIDNEY: 9.3 x 4.1 x 4.7 cm (SAG x AP x TRV). The kidney is normal in size, contour, and echogenicity. Renal cortical thickness is normal. No focal parenchymal lesions. 6 mm nonobstructing lower pole renal stone, previously 6 mm not significantly changed. Trace right hydronephrosis new from prior. LEFT KIDNEY: 9.1 x 4.8 x 3.5 cm (SAG x AP x TRV). The kidney is normal in size, contour, and echogenicity. Renal cortical thickness is normal. No renal calculi or hydronephrosis. Benign-appearing renal cyst measuring 2.7 cm. No follow up imaging is recommended. BLADDER: Well distended and normal. Bilateral ureteral jets are demonstrated. Prevoid bladder volume is 345.4 mL. Postvoid bladder volume is 45.7 mL. IMPRESSION:? 1.? Trace right hydronephrosis new from prior. 2.? Stable 6 mm nonobstructing right lower pole renal stone Assessment & Plan Assessment & Plan (1) Renal stones: Code(s): N20.0 - Calculus of kidney Category: Medical (2) OAB (overactive bladder): Code(s): N32.81 - Overactive bladder Category: Medical Plan We will continue to monitor kidneys. Continue VESIcare 10 mg daily. Medications: Refilled solifenacin (Vesicare) 10 mg PO DAILY 90 tabs 3RF 90 days Patient Instructions: The patient had an opportunity to ask questions regarding treatment plan. The patient expressed understanding and agreement with the above treatment plan. The patient is aware they should contact our office by phone for worsening of their current condition or the appearance of new symptoms. Compliance is encouraged with any medications and followup testing that is ordered. It is a privilege to be allowed the opportunity to participate in the urologic care of your patient. If you have any questions or concerns regarding treatment for the above conditions please do not hesitate to contact me. The office telephone contact is [phone]. This note is constructed in part using voice recognition software. While every effort has been made to ensure accuracy electrical assembly supervisor errors may have been included. Yours sincerely, Padmini Buenrostro MD Coding Level of Care Code Est Pt Level 3 (30840) Complex EM visit Add On G2211 Diagnoses Renal stones N20.0 OAB (overactive bladder) N32.81
== END 2025-01-23 11:33 | disposition home or self-care (01) ==
LOC: HO.HUSH 10:22
PROVIDERS: PCP Internal Medicine; Visit Provider Urology
DX: N20.0 Calculus of kidney (principal); N32.81 Overactive bladder; Z13.9 Encounter for screening, unspecified
CPT/HCPCS: 99213; G2211

== ENCOUNTER → 2025-01-23 10:21 | Outpatient (BNVA) | payer MEDICARE, MEDICAID, SELFPAY | PROVIDERS: PCP Internal Medicine; Visit Provider Urology | DX: N20.0 Calculus of kidney (principal); N32.81 Overactive bladder | CPT/HCPCS: 81003; 99212 ==

== ENCOUNTER 2025-03-24 16:15 | Outpatient (REF) | payer MEDICARE, MEDICAID, SELFPAY ==
--- OUTSIDE RECORDS SUMMARY | 2025-03-21 22:36 | XMS_ITS | Encounter Summary ---
Author Organization [facility] [place] [address] Care Team Providers Care Tax Intern Name Role Phone Kelby Limon MD Primary Care Provider [phone] Reason for Visit * Reason Comments Chest Pain Encounter Details Date Type Department Care Team (Late st Contact Info) Description 03/21/2025 10:36 PM EDT - 03/22/2025 1:43 AM EDT Emergency [facility] Emergency [address] [place] [address] Chest pain, unspecified type (Primary [...] 7:42 PM EDT Ro Lin RN * Chambers Suicide Severity Rating Scale (Screener/Recent Self-Report) Question [...] sent through Care Everywhere. * Chest Pain (Niuean) documented in this encounter Medications at Time [...] PCP. Patient informed to follow up with coronary care unit nurse. Patient's medications reviewed and sent to preferred [...] Does report history of premature atrial contractions. [place] Coma Scale Score: 15 Patient History Medical [...] dual photon absorptiometry OTHER SURGICAL HISTORY PROCEDURE: VA RAD ABDL HYSTERECTOMY W/BI PELVIC LMPHADENECTOMY OTHER [...] documented in this encounter Plan of Treatment Not on file documented as of this encounter Procedures Procedure [...] ECG 12 lead (03/21/2025 11:47 PM EDT) Ventricular Rate ECG 66 BPM GEMUSE Atrial Rate 68 BPM GEMUSE QRS Duration 90 ms GEMUSE Q-T Interval 412 ms GEMUSE QTc 431 ms GEMUSE P Wave [place] 51 degrees GEMUSE R [place] 41 degrees GEMUSE T [place] 58 degrees GEMUSE ECG Interpretation Sinus rhythm with Premature supraventricular complexes Abnormal ECG When compared with ECG of 21-MAR-2025 19:52, Premature supraventricular complexes are now Present Confirmed by MD Menon Christopher ([id number]) on 03/23/2025 8:46:46 AM GEMUSE 03/21/2025 11:4 7 PM EDT 03/23/2025 8:46 AM EDT Doyle DIEGO ECG ORDERABLES Final Resul t Performing Organization Address [facility] de Phone Number GEMUSE * Troponin I high sensitivity (03/21/2025 11:39 PM EDT) [facility] High Sensitivity Troponin I 3 [...] taking more than 20 mg/day of biotin. us Doyle DIEGO LAB BLOOD ORDERABLES Final Result Performing Organization Address [facility] [employer] de Phone Number [facility] [address] [place] [address], [place] [phone] * D-dimer, quantitative (03/21/2025 10:14 PM EDT) [facility] D-Dimer, Quant (D-DU) 193 <=230 ng/mL DDU [...] infected, trauma patients, DIC, acute CVA, acute AK, unstable angina, AF, old age, , and smoking. D-Dimer may be decreased with: Initiation of heparin therapy and oral anticoagulants. Dileep DIEOG LAB BLOOD ORDERABLES Final Result [facility] [address] [place] [address], [place] [phone] * APTT (03/21/2025 10:14 PM EDT) aPTT 35.6 24.1 - 39.3 sec LAB COAGULATION METHOD 03/21/2025 10:54 PM EDT [facility] Blood Venous blood specimen / Unknown Venipuncture / Unknown 03/21/2025 10:14 PM EDT 03/21/2025 10:40 PM EDT Dileep DIEGO LAB BLOOD ORDERABLES Final Result [facility] [address] [place] [address], [place] [phone] * Protime-INR (03/21/2025 10:14 PM EDT) Protime 11.6 10.6 - 13.9 sec LAB COAGULATION METHOD 03/21/2025 10:54 PM EDT [facility] INR 0.9 LAB COAGULATION METHOD 03/21/2025 10:54 PM EDT [facility] Blood Venous blood specimen / Unknown Venipuncture / Unknown 03/21/2025 10:14 PM EDT 03/21/2025 10:40 PM EDT us Dileep DIEGO LAB BLOOD ORDERABLES Final Result [facility] [address] [place] [address], [place] [phone] * (ABNORMAL) CBC auto differential (03/21/2025 10:14 PM EDT) WBC 10.4 4.8 - 10.8 K/mcL LAB [...] K/mcL LAB HEMETOLOGY METHOD [facility]/21[facility]2025 10:[facility] MPV 10.2 7.0 - 11.0 FL LAB HEMETOLOGY METHOD 03/21/2025 10:48 PM EDT [facility] NRBC 0.0 <1.0 % LAB HEMETOLOGY METHOD 03/21/2025 10:48 PM EDT [facility] NRBC Absolute 0.00 <0.10 K/mcL LAB HEMETOLOGY METHOD 03/21/2025 10:48 PM EDT [facility] Neutrophils Relative 58.8 % LAB HEMETOLOGY METHOD 03/21/2025 10:48 PM EDT [facility] Lymphocytes Relative 30.5 % LAB HEMETOLOGY METHOD 03/21/2025 10:48 PM EDT [facility] Monocytes Relative 9.1 % LAB HEMETOLOGY METHOD 03/21/2025 10:48 PM EDT [facility] Eosinophils Relative 0.9 % LAB HEMETOLOGY METHOD 03/21/2025 10:48 PM EDT [facility] Basophils Relative 0.5 % LAB HEMETOLOGY METHOD 03/21/2025 10:48 PM EDT [facility] Immature Granulocytes Relative 0.2 % LAB HEMETOLOGY METHOD 03/21/2025 10:48 [facility] Neutrophils Absolute 6.13 1.50 - 7.00 K/mcL LAB HEMETOLOGY METHOD 03/21/2025 10:48 PM EDT [facility] Lymphocytes Absolute 3.18 1.00 - 5.00 K/mcL LAB HEMETOLOGY METHOD 03/21/2025 10:48 PM EDT [facility] Monocytes Absolute 0.95 0.20 - 1.00 K/mcL LAB HEMETOLOGY METHOD 03/21/2025 10:48 PM EDT [facility] Eosinophils Absolute 0.09 0.00 - 0.50 K/mcL LAB HEMETOLOGY METHOD 03/21/2025 10:48 PM EDT [facility] Basophils Absolute 0.05 0.00 - 0.20 K/[facility] LAB HEMETOLOGY METHOD 03/21/2025 10:48 PM EDT [facility] Immature Granulocytes Absolute 0.02 0.00 - 0.03 K/[facility] LAB HEMETOLOGY METHOD 03/21/2025 10:48 PM EDT [facility] Blood Venous blood specimen / Unknown Venipuncture / Unknown 03/21/2025 10:14 PM EDT 03/21/2025 10:40 PM EDT us Doyle DIEGO LAB BLOOD ORDERABLES Final Result Performing Organization Address [facility]/ZIP Co de Phone Number [facility] [address] [place] [address], [place] [phone] * B-type natriuretic peptide (03/21/2025 10:14 PM EDT) BNP 18 <=100 pcg/mL LAB CHEMISTRY METHOD 03/21/2025 11:12 PM EDT [facility] Blood Venous blood specimen / Unknown Venipuncture / Unknown 03/21/2025 10:14 PM EDT 03/21/2025 10:40 PM EDT us Doyle DIEGO LAB BLOOD ORDERABLES Final Result [facility] [address] [place] [address], [place] [phone] * (ABNORMAL) Magnesium (03/21/2025 10:14 PM EDT) Magnesium 1.8(L) 1.9 - 2.6 mg/dL LAB CHEMISTRY METHOD 03/21/2025 11:09 PM EDT [facility] Blood Venous blood specimen / Unknown Venipuncture / Unknown 03/21/2025 10:14 PM EDT 03/21/2025 10:40 PM EDT Doyle DIEGO LAB BLOOD ORDERABLES Final Result Performing Organization Address [facility]/ZIP Co de Phone Number [facility] [address] [place] [address], [place] [phone] * Lipase (03/21/2025 10:14 PM EDT) Pathologist [facility] Lipase 59 13 - 75 unit/L LAB CHEMISTRY METHOD 03/21/2025 11:09 PM EDT [facility] Blood Venous blood specimen / Unknown Venipuncture / Unknown 03/21/2025 10:14 PM EDT 03/21/2025 10:40 PM EDT Doyle DIEGO LAB BLOOD ORDERABLES Final Result Performing Organization Address [facility]/ZIP Ks de Phone Number [facility] [address] [place] [address], [place] [phone] * (ABNORMAL) Comprehensive metabolic panel (03/21/2025 10:14 PM EDT) [facility] Sodium 140 133 - 145 mmol/L LAB CHEMISTRY METHOD 03/21/2025 11:19 PM [facility] Potassium 3.8 3.5 - 5.5 mmol/L LAB CHEMISTRY METHOD 03/21/2025 11:19 PM [facility] Chloride 104 96 - 110 mmol/L LAB CHEMISTRY METHOD 03/21/2025 11:19 PM [facility] CO2 30 21 - 32 mmol/L LAB CHEMISTRY METHOD 03/21/2025 11:19 PM [facility] Anion Gap 6 3 - 11 LAB CHEMISTRY METHOD 03/21/2025 11:19 PM [facility] Glucose 128(H) 70 - 100 mg/dL LAB CHEMISTRY METHOD 03/21/2025 11:19 PM [facility] BUN 19 5 - 25 mg/dL LAB CHEMISTRY METHOD 03/21/2025 11:19 PM [facility] Creatinine 0.74 0.50 - 1.10 mg/dL LAB CHEMISTRY METHOD 03/21/2025 11:19 PM [facility] eGFR 90 >=60 mL/min/1. 73m2 LAB CHEMISTRY METHOD 03/21/2025 11:19 PM [facility] Comment:Calculation based on the Chronic Kidney Disease Epidemiology Collaboration (CKD-EPI) equation refit without adjustment for race. BUN/Creatinine Ratio 25.7 LAB CHEMISTRY METHOD 03/21/2025 11:19 PM [facility] Calcium 11.0(H) 8.5 - 10.5 mg/dL LAB CHEMISTRY METHOD 03/21/2025 11:19 PM [facility] AST (SGOT) 15 10 - 42 unit/L LAB CHEMISTRY METHOD 03/21/2025 11:19 PM [facility] ALT (SGPT) 27 10 - 60 unit/L LAB CHEMISTRY METHOD 03/21/2025 11:19 PM [facility] Alkaline Phosphatase 124(H) 42 - 121 unit/L LAB CHEMISTRY METHOD 03/21/2025 11:19 PM [facility] Total Protein 6.6 6.0 - 8.0 g/dL LAB CHEMISTRY METHOD 03/21/2025 11:19 PM [facility] Albumin 3.8 3.2 - 5.0 g/dL LAB CHEMISTRY METHOD 03/21/2025 11:19 PM [facility] Total Bilirubin 0.5 0.0 - 1.4 mg/dL LAB CHEMISTRY METHOD 03/21/2025 11:19 PM [facility] Blood Venous blood specimen / Unknown Venipuncture / Unknown 03/21/2025 10:14 PM EDT 03/21/2025 10:40 PM EDT Doyle DIEGO LAB BLOOD ORDERABLES Final Result Performing Organization Address [facility]/ZIP Co de Phone Number [facility] [address] [place] [address], [place] [phone] * Troponin I high sensitivity (03/21/2025 10:14 PM EDT) High Sensitivity Troponin I 3 <=54 ng/L [...] BLOOD ORDERABLES Final Result Performing Organization Address [facility] de Phone Number [facility] [address] [place] [address], [place] [phone] * XR Chest 2 Views (03/21/2025 10:06 PM EDT) Anatomical Region Laterality Modality Body Radiographic Natalie ging 03/22/2025 8:05 AM EDT Impressions 03/22/2025 8:06 AM EDT No acute findings. -------- FINAL REPORT -------- Dictated By: Tommy Pineda Dictated Date: 03/22/2025 08:05 ET Assigned Physician: Tommy Pineda Reviewed and Electronically Signed By: Tommy Pineda Signed Date: 03/22/2025 08:06 ET Workstation ID: [id number] Transcribed By: Self Edit Transcribed Date: 03/22/2025 [...] Signed Date: 03/22/2025 08:06 ET Workstation ID: [id number] Transcribed By: Self Edit Transcribed Date: 03/22/2025 08:05 ET us Doyle DIEGO IMG XR PROCEDURES Final Res ult * ECG 12 lead (03/21/2025 7:52 PM EDT) Ventricular Rate ECG 67 BPM GEMUSE Atrial Rate 67 BPM GEMUSE P-R Interval 166 ms GEMUSE QRS Duration 88 ms GEMUSE Q-T Interval 400 ms GEMUSE QTc 422 ms GEMUSE P Wave [place] 62 degrees GEMUSE R [place] 41 degrees GEMUSE T [place] 50 degrees GEMUSE ECG Interpretation Normal sinus rhythm Normal ECG When compared with ECG of 21-NOV-2024 15:02, No significant change was found Confirmed by MD Sinan, Emre ([id number]) on 03/23/2025 8:42:15 AM GEMUSE 03/21/2025 [...] 03/21 documented in this encounter Care Teams Tax Intern Relationship Specialty Start Date End Date Kelby Limon MD [address] [place] [id number] PCP - General Internal Medicine 02/02/22 documented as of this encounter
--- OUTSIDE RECORDS SUMMARY | 2025-03-24 20:58 | XMS_ITS | Clinical Summary ---
Author Organization [employer] Address [address] [place] [address] Care Team Providers Care Vp Cardiovascular Name Role Phone Unavailable Primary Care Provider Unavailabl e Encounters Date Type Department Care Team Description 02/24/2025 2:55 PM EDT Immunization [facility] [address] [place] [address] Deanne Scales RN Encounter for vaccination; Encounter for immunization from Last 3 Months Immunizations Immunization Administration Dates Next Due Influenza, seasonal, injectable, preservative fr ee 02/24/2025 Pfizer Covid-19 Vaccine 12+ 02/24/2025 Social History Tobacco Use Types Packs/Day Years Used Date Smoking Tobacco: Never Assessed Comments Unknown Sex and Gender Information Value Date Recorded Sex Assigned at Female 02/27/2025 10:01 AM EDT Legal Sex Female 9:47 AM EDT Gender Identity Female 02/27/2025 10:01 AM EDT Sexual Orientation Straight 02/27/2025 10 :01 AM EDT Plan of Treatment Health Maintenance Due Date Last Done Comments CT Colonography 1960 Colonoscopy 1960 Colorectal Cancer Screening 1960 Depression Screening 1960 FIT DNA/Cologuard 1960 FIT 1960 FOBT 1960 HIV Screening 1960 SDOH Screening 1960 Sigmoidoscopy 1960 Disability Screening 1960 Alcohol/Substance Use Screening 1972 Tobacco Screening 1972 Hepatitis C Screening 1978 Pap Smear 1981 Cervical Cancer Screening 1990 HPV/Cotest 1990 Pneumococcal Vaccine: 50+ Years (2 of 2 - PCV) 10/20/2007 10/19/2006 Zoster Vaccines (1 of 2) 2010 DTaP/Tdap/Td Vaccines (2 - Td or Tdap) 08/13/2024 08/13/2014, 12/19/2002 Mammogram 01/16/2027 01/16/2025, 01/16/2025 RSV Patients and Patients Aged 60 years or older Completed 03/09/2023 COVID-19 Vaccine Completed 02/24/2025, 10/2023, 04/24/2023, Additional history exists Influenza Vaccine Completed 02/24/2025, , 02/22/2023, Additional history exists HIB Vaccines Aged Out [...] patient's age to complete this topic Meningococcal Vaccine Aged Out No debbi wade eligible based on patient's age to complete this topic RSV under 20 months Aged Out No longe r eligible based on patient's age to complete this topic Rotavirus Vaccines Aged Out No longer eligible based on patient's age to complete this topic Insurance MEDICARE
--- OUTSIDE RECORDS SUMMARY | 2025-03-24 20:58 | XMS_ITS | Data Portability ---
Author Organization [facility], [facility] Address [address] [place] [address] Assessment No assessment recorded. Plan of Treatment Reminders Order Date Submit Date Provider Last Modified By Organization Details Last Modified Time Details Appointments None record ed. Lab None record ed. Referral None record ed. Procedures None record ed. Surgeries None record ed. Imaging None record ed. Medication Orders None record ed. Patient TargetsNo targets recorded. Patient InstructionsNo instructions recorded. Reason for Referral None Reported. Problems Name Problem SNOMED Code Status Onset Date Resolution Date Notes Provider Name and Address Organization Details Recorded Time No complaints 032925489 Active Status : 'I'; Not Available [facility] 4 09:20:28 Problem Notes None recorded. Procedures Surgical History Date Name Laterality Status Provider Name and Address Organization Details Recorded Time 5 Trigger Finger Kenalog Injection completed Devan Ervin MD [address] [facility] [address], [place], [address], [facility] 01/15/2025 07:03:03 Imaging Results None recorded. Procedure Notes None recorded. Medical Equipment None Reported. Allergies Allergen ID Allergen Name Allergen Category Reaction Reaction Severity Criticality Documentation Date Start Date Code Code System Note Provider Name and Address Organization Details Recorded Time 30420 morphine sulfate medicatio n Not available Not available Not available 08/06/20232005 46500 RxNorm Aller gyNam e: 'Morp sher Deriv ative s'; Aller gyRea ction : 'Skin React ion, Nause a/Vom iting /Diar savage' ; Not Available [facility] 4 13:10:53 15594 acetamino phen / oxycodone medicatio n Not available Not available Not available 08/06/20232005 93433 3 RxNorm Aller gyRea ction : 'Skin React ion, Nause a/Vom iting /Diar savage' ; Not Available [facility] 4 13:10:53 16917 codeine medicatio n Not available Not available Not available 08/06/20232005 2670 RxNorm Aller gyNam e: 'Code ine and Relat ed'; Aller gyRea ction : 'Skin React ion, Nause a/Vom iting /Diar savage' ; Not Available [facility] 4 13:10:53 46449 Biaxin medicatio n Not available Not available Not available 08/06/2023200572 9 RxNorm Aller gyRea ction : 'Skin React ion, Nause a/Vom iting /Diar savage' ; Not Available [facility] 4 13:10:53 73294 Levaquin medicatio n Not available Not available Not available 08/06/20232016 06412 2 RxNorm Aller gyRea ction : 'Skin React ion'; Not Available [facility] 4 13:10:53 Medications Name Sig Start Date Stop Date Status Note LastModified by Organization Details LastModified Time atorvastati n 40 mg tablet TAKE 1 TABLET BY MOUTH EVERY DAY active Not Available Not Available No t Available metformin 500 mg tablet TAKE 1 TABLET BY MOUTH TWICE A DAY active Not Available Not Available No t Available gabapentin 600 mg tablet TAKE 1 TABLET BY MOUTH TWICE A DAY active Not Available Not Available No t Available albuterol sulfate 2.5 mg/3 mL (0.083 %) solution for nebulizatio n INHALE 1 VIAL VIA NEBULIZER EVERY 6 HOURS NEEDED FOR WHEEZING, J45.40 active Not Available Not Available No t Available triamcinolo ne acetonide 0.5 % topical cream APPLY A THIN FILM TO AFFECTED AREA TWICE A DAY active Not Available Not Available No t Available famotidine 20 mg tablet TAKE 1 TABLET BY MOUTH TWICE A DAY active Not Available Not Available No t Available baclofen 10 mg tablet TAKE 1/2 TABLET BY MOUTH TWICE A DAY AND 1 TAB AT BEDTIME NEEDED FOR SPASM active Not Available Not Available No t Available potassium citrate ER 10 mEq (1,080 mg) tablet,exte nded release TAKE 1 TABLET BY MOUTH TWICE A DAY active Not Available Not Available No t Available montelukast 10 mg tablet TAKE 1 TABLET BY MOUTH EVERY EVENING active Not Available Not Available No t Available hydrochloro thiazide 25 mg tablet TAKE 1 TABLET BY MOUTH EVERY DAY active Not Available Not Available No t Available albuterol sulfate HFA 90 mcg/actuati on aerosol inhaler INHALE 2 PUFFS BY MOUTH EVERY 6 HOURS active Not Available Not Available No t Available fluticasone propionate 50 mcg/actuati on nasal spray,suspe nsion USE 1 SPRAY IN EACH NOSTRIL TWICE A DAY active Not Available Not Available No t Available Restasis 0.05 % eye drops in a dropperette INSTILL 1 DROP INTO BOTH EYES TWICE A DAY active Not Available Not Available No t Available aripiprazol e 5 mg tablet TAKE 1 TABLET BY MOUTH EVERY DAY IN THE MORNING active Not Available Not Available No t Available duloxetine 30 mg capsule,del ayed release TAKE 1 CAPSULE BY MOUTH ONCE A DAY TAKE WITH 60 MG CAPSULE TOTAL 90MG DAILY active Not Available Not Available No t Available duloxetine 60 mg capsule,del ayed release TAKE 1 CAPSULE BY MOUTH ONCE A DAY. TAKE WITH 30MG CAPSULE FOR TOTAL 90MG active Not Available Not Available No t Available solifenacin 10 mg tablet TAKE 1 TABLET BY MOUTH EVERY DAY active Not Available Not Available No t Available aripiprazol e ARIPipraz ole 5MG Tablet 2021 active Statu s: 'Curr ent'; Not Available Not Available Not Available Vesicare VESIcare 5MG Tablet 04/20 completed Statu s: 'Disc ontin ued'; Not Available Not Available Not Available budesonide- formoterol HFA 160 mcg-4.5 mcg/actuati on aerosol inhaler INHALE 2 PUFFS 2 TIMES A DAY,INSTR :RINSE MOUTH AND THROAT AFTER USE active Not Available Not Available No t Available oxycodone HCl-oxycodo ne-ASA as directed 1 TABLET Q 4 HOURS PRN PAIN DO NOT DIRVE WHILE ON THIS MED 2022 active Statu s: 'Curr ent'; Not Available Not Available Not Available Tirosint 75 mcg capsule TAKE 1 CAPSULE BY MOUTH EVERY DAY active Not Available Not Available No t Available Miebo (PF) 100 % eye drops INSTILL 1 DROP INTO BOTH EYES 4 TIMES A DAY active Not Available Not Available No t Available Vitals None Recorded Social History None recorded. Functional Status None recorded. Mental Status None recorded. Family History Nothing Reported. Medical History No medical history recorded. Gynecological HistoryNo gynecological history recorded. Obstetrics History GPAL:G 0 P 0 0 0 0 Past Encounters Encounter ID Performer Location Encounter Start Date Encounter Closed Date Diagnosis/Indication Diagnosis SNOMED-CT Code Diagnosis ICD10 Code Diagnosis IMO Codes Diagnosis Note [id number] MD PETR Robles [address] [address] 01/14/2025 11:33:47 01/19/2025 15:58:16 Flexor tenosynovitis of finger [id number] M65.949 204405 Health Concerns Section Related Observation LastModified by Organization Detai ls LastModified Time None Recorded Concern Status LastModified by Organization Details LastModified Time None Recorded Advance Directives Directive None Recorded Payers Insurance Date Sequence Insurance Name Policy Number Policy Degroot Covered Member ID Degroot Member ID Guarantor Name 01/14/2025 1 [place]: [employer] Lucygo Worley [id number] Lucy Worley 01/14/2025 2 [place] [facility] Lucy Worley [id number] Lucy Worley Notes Date Note Type Note Provider Name and Address Organization Details Recorded Time 01/14/2025 text/html ROS as noted in the HPI Diagnosis: Flexor tenosynovitis right ring finger 64-year-old female with a several month history of triggering of her right ring finger. This develop without history of trauma or inciting event it is associated with a sharp pain which she rates as a 5/10 in severity. She describes no numbness or tingling. Past family, medical, social history and review of systems has been reviewed, updated and is located in the patient s chart. Examination: Healthy appearing patient in no apparent distress. Alert and oriented. She has symmetric range of motion of her wrist and digits. She has triggering of the right ring finger with a tender nodule at the A1 charley. Provocative testing of her bilateral wrist and digits reveal no instability. No atrophy in either upper extremity. Brisk capillary refill in all digits Plan: I described for the patient the nature of flexor tenosynovitis and her options. The patient has opted for a corticosteroid injection into the flexor tendon sheath. The patient tolerated this well. The patient will follow-up with me by phone in a month's time or sooner if there are any concerns. Devan Ervin MD [address] [place] [address] [address], [place], [address], [facility] [place] [facility] 01/15/2025 07:03:23 OBGyn Episode No OBEpisode recorded.
--- OUTSIDE RECORDS SUMMARY | 2025-03-24 20:59 | XMS_ITS | Clinical Summary ---
Author Organization [address] Address [address] [place] [address] Phone Care Team Providers Care Fur Comber Name Role Phone Pcp, Does Not Have [...] Shingrix (RZV) 2 Dose Standard Series) 2010 Influenza vaccine 01/02/2025 05/15/2016 Covid-19 vaccine series ( - 2024- season) 2025 RSV Immunization (1 - 1-dose 75+ series) 2035 Meningococcal B Vaccine Aged Out No l onger eligible based on patient's age to complete this topic Meningococcal Vaccine Aged Out No debbi wade eligible based on patient's age to complete this topic Insurance MEDICARE [id number] MEDICAID MEDICARE [id number] MEDICAID MEDICARE [id number] MEDICAID Care Teams Fur Comber Relationship Specialty Start Date End Date Pcp, Does Not Have A PCP - General 12/18/20
--- OUTSIDE RECORDS SUMMARY | 2025-03-24 20:59 | XMS_ITS | Clinical Summary ---
Author Organization [facility] Address [address] [place] [address] Phone Care Team Providers Care Bindery Helper Name Role Phone Kelby Limon MD Primary Care Provider [phone] Allergies Active Allergy Reactions Criticality Noted Date [...] every 6 (six) hours if needed. Active ketorolac (TORADOL) 10 mg tablet Take 1 tablet (10 mg total) by mouth every 6 (six) hours if needed for moderate pain for up to 5 days. 20 tablet 03/27/20 25 Active Active Problems Problem Noted Date Diagnosed [...] Encounters Date Type Department Care Team Description 03/23/[address] [facility] - [facility] [address] [facility] [address] [place] [address] Cj Anderson MD 03/21/2025 10:36 PM EDT - 03/22/2025 1:[address] [facility] Emergency [address] [place] [address] Chest pain, unspecified type (Primary Dx); Premature atrial contractions Discharge Disposition: Home or Self Care 02/16/[address] [facility] - [address] [place] [address] Mae Romero NP 01/16/2025 9:43 AM EDT - 01/16/2025 11:59 PM EDT Hospital Encounter [facility] [address] [place] [address] Encounter for screening mammogram for breast cancer Discharge Disposition: Home or Self Care 01/16/2025 9:43 AM EDT - 01/16/2025 11:59 PM EDT Hospital Encounter [facility] Bone Density [address] [place] [phone] Age-related osteoporosis without current pathological fracture Discharge Disposition: Home or Self Care 01/15/[address] [facility] - [address] [facility] [address] [place] [address] Yamilex Maldonado MA from Last 3 Months Surgical History Surgery Date Site/Laterality Comments TOTAL KNEE ARTHROPLASTY PROCEDURE: HISTORICAL TOTAL KNEE REPLACE COLONOSCOPY 2018 PROCEDURE: HISTORICAL COLONOSCOPY OTHER SURGICAL HISTORY 07/18/2012 PROCEDURE: HISTORY OTHER; COMMENT: Bone density study, dual photon absorptiometry WRIST SURGERY PROCEDURE: HISTORICAL WRIST SURGERY SHOULDER SURGERY PROCEDURE: HISTORICAL SHOULDER SURGERY OTHER SURGICAL HISTORY PROCEDURE: [place] RAD ABDL HYSTERECTOMY W/BI PELVIC LMPHADENECTOMY OTHER [...] type 2 diabetes m ellitus without complication (CMS/HCC V24, CMS/HCC V28) DX:Controlled type 2 diabete s mellitus without complication (HCC) Depression, major, in partia l remission ([facility]/HCC V24) DX:Depression, major, in par tial remission ([facility]) Esophageal reflux DX:Esophageal reflux Foot drop, right [...] Mass Index 23.23 03/21/2025 7:42 PM EDT Plan of Treatment Health Maintenance Due Date Last Done Comments Colorectal Cancer Screening: Colonoscopy 1960 Diabetes: Annual Foot Exam 1970 Diabetes: Annual Retina Eye Exam 1970 Cervical Cancer Screening: Pap Smear 1981 Pneumococcal Vaccine: 50+ Years (2 of 2 - PCV) 10/20/2007 10/19/2006 Zoster Vaccines (1 of 2) 2010 Cholesterol Screening (Lipid Panel) 05/13/2022 HIV Screening 05/13/2022 Hepatitis C Screening 05/13/2022 Social Influencers of Health Screening 05/13/2022 Medicare Annual Wellness Visit 03/20/2024 03/20/2023 Depression Screening 06/04/2024 DTaP,Tdap,and Td Vaccines (3 - Td or Tdap) 08/13/2024 08/13/2014, 12/19/2002 Diabetes: Annual Urine Albumin-Creatinine Ratio (uACR) 10/31/2024 Diabetes: Blood Sugar Control Test (HGBA1C) 10/31/2024 10/15/2015 Diabetes: Annual GFR (Glomerular Filtration Rate) 03/21/2026 03/21/2025, 01/14/2025, 10/31/2015 Breast Cancer Screening 01/16/2027 01/17/20 25, 01/16/2024, 01/12/2023, Additional history exists Osteoporosis Screening (Bone Density Screening) 01/16/2035 01/16/2025, 01/12/2023, 01/10/2021, Additional history exists RSV Immunization Adult Patients Completed 03/09/2023 COVID-19 Vaccine Completed 02/24/2025, 10/2023, [...] HIGH SENSITIVITY Timed 03/21/2025 11:39 PM EDT D-DIMER STAT 03/21/2025 10:14 PM EDT ACTIVATED PARTIAL THROMBOPLASTIN TIME STAT 03/21/2025 10:14 PM EDT PROTHROMBIN TIME WITH INR STAT 03/21/2025 10:14 PM EDT CBC WITH AUTO DIFFERENTIAL STAT 03/21/2025 10:14 PM EDT B-TYPE NATRIURETIC PEPTIDE STAT 03/21/2025 10:14 PM EDT MAGNESIUM STAT 03/21/2025 10:14 PM EDT LIPASE STAT 03/21/2025 10:14 PM EDT COMPREHENSIVE METABOLIC PANEL STAT 03/21/2025 10:14 PM EDT CBC AND DIFFERENTIAL STAT 03/21/2025 10:14 PM EDT TROPONIN I HIGH SENSITIVITY Timed 03/21/2025 10:14 PM EDT XR CHEST 2 VIEWS STAT 03/21/2025 10:0 6 PM EDT ECG 12-LEAD STAT 03/21/2025 7:52 PM EDT BD BONE DENSITY DXA AXIAL SKELETON Routine 01/16/2025 10:22 AM EDT Age-related osteoporosis without current pathological fracture MG MAMMO DIGITAL SCREENING W TRISTIAN BILAT Routine 01/16/2025 10:09 AM EDT Encounter for screening mammogram for breast cancer BASIC METABOLIC PANEL Routine 01/14/2025 11:06 AM EDT from Last 3 Months Results * ECG-Annotated (03/23/2025) Provider Onbase MD ECG ORDERABLES Final Result * ECG 12 lead (03/21/2025 11:47 PM EDT) Only the most recent of2 resultswithin the time period is included. Ventricular Rate ECG 66 BPM GEMUSE Atrial Rate 68 BPM GEMUSE QRS Duration 90 ms GEMUSE Q-T Interval 412 ms GEMUSE QTc 431 ms GEMUSE P Wave [place] 51 degrees GEMUSE R [place] 41 degrees GEMUSE T [place] 58 degrees GEMUSE ECG Interpretation Sinus rhythm with Premature supraventricular complexes Abnormal ECG When compared with ECG of 21-MAR-2025 19:52, Premature supraventricular complexes are now Present Confirmed by MD Sinan, [place] ([id number]) on 03/23/2025 8:46:46 AM GEMUSE 03/21/2025 11:4 7 PM EDT 03/23/2025 8:46 AM EDT Doyel DIEGO ECG ORDERABLES Final Resul t GEMUSE * Troponin I high sensitivity (03/21/2025 11:39 PM EDT) Only the most recent of2 resultswithin the time period is included. Pathologist [facility] High Sensitivity Troponin I 3 <=54 ng/L LAB CHEMISTRY METHOD 03/22/2025 12:[address] [facility] Blood Venous blood specimen / Unknown Venipuncture / Unknown 03/21/2025 11:39 PM EDT 03/22/2025 12:[address] [facility] - 03/22/2025 12:59 AM EDT High levels of biotin in samples may falsely decrease hsTroponin values. Use caution when interpreting hsTroponin results in patients taking biotin who exhibit renal impairment (eGFR <60) or in patients taking more than 20 mg/day of biotin. us Doyle DIEGO LAB BLOOD ORDERABLES Final Result [facility] [address] [place] [address], * (ABNORMAL) CBC auto differential (03/21/2025 10:14 PM EDT) [facility] WBC 10.4 4.8 - 10.8 K/mcL LAB HEMETOLOGY METHOD 03/21/2025 10:[address] [facility] RBC 5.50(H) 3.80 - 4.80 M/mcL LAB HEMETOLOGY METHOD 03/21/2025 10:[address] [facility] Hemoglobin 15.1 11.5 - 16.0 g/dL LAB HEMETOLOGY METHOD 03/21/2025 10:[address] [facility] Hematocrit 47.8(H) 35.0 - 47.0 % LAB HEMETOLOGY METHOD 03/21/2025 10:[address] [facility] MCV 87.7 79.0 - 98.0 FL LAB HEMETOLOGY METHOD 03/21/2025 10:[address] [facility] MCH 27.7 27.0 - 32.0 pcg LAB HEMETOLOGY METHOD 03/21/2025 10:[address] [facility] MCHC 31.6(L) 32.0 - 37.0 g/dL LAB HEMETOLOGY METHOD 03/21/2025 10:[address] [facility] RDW 13.3 11.0 - 15.0 % LAB HEMETOLOGY METHOD 03/21/2025 10:[address] [facility] Platelets 290 130 - 400 K/mcL LAB HEMETOLOGY METHOD 03/21/2025 10:[address] [facility] MPV 10.2 7.0 - 11.0 FL LAB HEMETOLOGY METHOD 03/21/2025 10:[address] [facility] NRBC 0.0 <1.0 % LAB HEMETOLOGY METHOD 03/21/2025 10:[address] [facility] NRBC Absolute 0.00 <0.10 K/mcL LAB HEMETOLOGY METHOD 03/21/2025 10:[address] [facility] Neutrophils Relative 58.8 % LAB HEMETOLOGY METHOD 03/21/2025 10:[address] [facility] Lymphocytes Relative 30.5 % LAB HEMETOLOGY METHOD 03/21/2025 10:[address] [facility] Monocytes Relative 9.1 % LAB HEMETOLOGY METHOD 03/21/2025 10:[address] [facility] Eosinophils Relative 0.9 % LAB [facility] Basophils Relative 0.5 % LAB HEMETOLOGY METHOD 03/21/2025 10:48 PM [facility] Immature Granulocytes Relative 0.2 % LAB HEMETOLOGY METHOD 03/21/2025 10:[address] [facility] Neutrophils Absolute 6.13 1.50 - 7.00 K/mcL LAB HEMETOLOGY METHOD 03/21/2025 10:[address] [facility] Lymphocytes Absolute 3.18 1.00 - 5.00 K/mcL LAB HEMETOLOGY METHOD [facility]/21[facility]25 [facility] Monocytes Absolute 0.95 0.20 - 1.00 K/mcL LAB HEMETOLOGY METHOD 03/21/2025 10:[address] [facility] Eosinophils Absolute 0.09 0.00 - 0.50 K/[facility] LAB HEMETOLOGY METHOD 03/21/2025 10:[address] [facility] Basophils Absolute 0.05 0.00 - 0.20 K/[facility] LAB HEMETOLOGY METHOD 03/21/2025 10:[address] [facility] Immature Granulocytes Absolute 0.02 0.00 - 0.03 /[facility] LAB HEMETOLOGY METHOD 03/21/2025 10:[address] [facility] Blood Venous blood specimen / Unknown Venipuncture / Unknown 03/21/2025 10:14 PM EDT 03/21/2025 10:40 PM EDT Doyle DIEGO LAB BLOOD ORDERABLES Final Result Performing Organization Address City/[facility]/ZIP Co de Phone Number [facility] [address] [place] [address], [place] [phone] * APTT (03/21/2025 10:14 PM EDT) aPTT 35.6 24.1 - 39.3 sec LAB COAGULATION METHOD 03/21/2025 10:[address] [facility] Blood Venous blood specimen / Unknown Venipuncture / Unknown 03/21/2025 10:14 PM EDT 03/21/2025 10:40 PM EDT Dileep DIEGO LAB BLOOD ORDERABLES Final Result [facility] [address] [place] [address], [place] [phone] * Protime-INR (03/21/2025 10:14 PM EDT) Protime 11.6 10.6 - 13.9 sec LAB COAGULATION METHOD 03/21/2025 10:[address] [facility] INR 0.9 LAB COAGULATION METHOD 03/21/2025 10:[address] [facility] Blood Venous blood specimen / Unknown Venipuncture / Unknown 03/21/2025 10:14 PM EDT 03/21/2025 10:40 PM EDT Dileep DIEGO LAB BLOOD ORDERABLES Final Result Performing Organization Address City/[facility]/ZIP Co de Phone Number [facility] [address] [place] [address], [place] [phone] * D-dimer, quantitative (03/21/2025 10:14 PM EDT) Pathologist [facility] D-Dimer, Quant (D-DU) 193 <=230 ng/mL DDU LAB COAGULATION METHOD 03/21/2025 10:[address] [facility] Blood Venous blood specimen / Unknown Venipuncture / Unknown 03/21/2025 10:14 PM EDT 03/21/2025 10:[address] [facility] - 03/21/2025 10:54 PM EDT D-Dimer <230 ng/mL (D-Dimer units) is the threshold for exclusion of DVT/PE. D-Dimer may be elevated in: Critically ill, severely infected, trauma patients, DIC, acute CVA, acute WI, unstable angina, AF, old age, , and smoking. D-Dimer may be decreased with: Initiation of heparin therapy and oral anticoagulants. Dileep DIEGO LAB BLOOD ORDERABLES Final Result [facility] [address] [place] [address], [place] [phone] * B-type natriuretic peptide (03/21/2025 10:14 PM EDT) BNP 18 <=100 pcg/mL LAB CHEMISTRY METHOD 03/21/2025 11:[address] [facility] Blood Venous blood specimen / Unknown Venipuncture / Unknown 03/21/2025 10:14 PM EDT 03/21/2025 10:40 PM EDT Doyle DIEGO LAB BLOOD ORDERABLES Final Result Performing Organization Address [facility]/ZIP Co de Phone Number [facility] [address] [place] [address], [place] [phone] * (ABNORMAL) Magnesium (03/21/2025 10:14 PM EDT) Magnesium 1.8(L) 1.9 - 2.6 mg/dL LAB CHEMISTRY METHOD 03/21/2025 11:[address] [facility] Blood Venous blood specimen / Unknown Venipuncture / Unknown 03/21/2025 10:14 PM EDT 03/21/2025 10:40 PM EDT Doyle DIEGO LAB BLOOD ORDERABLES Final Result Performing Organization Address [facility]/ZIP Co de Phone Number [facility] [address] [place] [address], [place] [phone] * Lipase (03/21/2025 10:14 PM EDT) Pathologist [facility] Lipase 59 13 - 75 unit/L LAB CHEMISTRY METHOD 03/21/2025 11:[address] [facility] Blood Venous blood specimen / Unknown Venipuncture / Unknown 03/21/2025 10:14 PM EDT 03/21/2025 10:40 PM EDT us Doyle DIEGO LAB BLOOD ORDERABLES Final Result Performing Organization Address [facility]/ZIP Co de Phone Number [facility] [address] [place] [address], [place] [phone] * (ABNORMAL) Comprehensive metabolic panel (03/21/2025 10:14 PM EDT) Sodium 140 133 - 145 mmol/L LAB CHEMISTRY METHOD 03/21/2025 11:19 PM [facility] Potassium 3.8 3.5 - 5.5 mmol/L LAB CHEMISTRY METHOD 03/21/2025 11:19 PM [facility] Chloride 104 96 - 110 mmol/L LAB CHEMISTRY METHOD 03/21/2025 11:19 PM [facility] CO2 30 21 - 32 mmol/L LAB CHEMISTRY METHOD 03/21/2025 11:19 PM [facility] Anion Gap 6 3 - 11 LAB CHEMISTRY METHOD 03/21/2025 11:19 PM [facility] Glucose 128(H) 70 - 100 mg/dL LAB CHEMISTRY METHOD 03/21/2025 11:19 PM [facility] BUN 19 5 - 25 mg/dL LAB CHEMISTRY METHOD 03/21/2025 11:19 PM [facility] Creatinine 0.74 0.50 - 1.10 mg/dL LAB CHEMISTRY METHOD 03/21/2025 11:19 PM [facility] eGFR 90 >=60 mL/min/1. 73m2 LAB CHEMISTRY METHOD 03/21/2025 11:19 PM [facility] Comment:Calculation based on the Chronic Kidney Disease Epidemiology Collaboration (CKD-EPI) equation refit without adjustment for race. BUN/Creatinine Ratio 25.7 LAB CHEMISTRY METHOD 03/21/2025 11:19 PM [facility] Calcium 11.0(H) 8.5 - 10.5 mg/dL LAB CHEMISTRY METHOD 03/21/2025 11:19 PM [facility] AST (SGOT) 15 10 - 42 unit/L LAB CHEMISTRY METHOD 03/21/2025 11:19 PM [facility] ALT (SGPT) 27 10 - 60 unit/L LAB CHEMISTRY METHOD 03/21/2025 11:[address] [facility] Alkaline Phosphatase 124(H) 42 - 121 unit/L LAB CHEMISTRY METHOD 03/21/2025 11:[address] [facility] Total Protein 6.6 6.0 - 8.0 g/dL LAB CHEMISTRY METHOD 03/21/2025 11:[address] [facility] Albumin 3.8 3.2 - 5.0 g/dL LAB CHEMISTRY METHOD 03/21/2025 11:[address] [facility] Total Bilirubin 0.5 0.0 - 1.4 mg/dL LAB CHEMISTRY METHOD 03/21/2025 11:[address] [facility] Blood Venous blood specimen / Unknown Venipuncture / Unknown 03/21/2025 10:14 PM EDT 03/21/2025 10:40 PM EDT Doyle DIEGO LAB BLOOD ORDERABLES Final Result [facility] [address] [place] [address], [place] [phone] * XR Chest 2 Views (03/21/2025 10:06 PM EDT) Anatomical Region Laterality Modality Body Radiographic Natalie ging 03/22/2025 8:0 5 AM EDT Impressions 03/22/2025 8:06 AM EDT No acute findings. -------- FINAL REPORT -------- Dictated By: Tommy Pineda Dictated Date: 03/22/2025 08:05 ET Assigned Physician: Tommy Pineda Reviewed and Electronically Signed By: Tommy Pineda Signed Date: 03/22/2025 08:06 ET Workstation ID: [id number] Transcribed By: Self Edit Transcribed Date: 03/22/2025 [...] Signed Date: 03/22/2025 08:06 ET Workstation ID: [id number] Transcribed By: Self Edit Transcribed Date: 03/22/2025 08:05 ET Doyle DIEGO IMG XR PROCEDURES Final Res ult * BD Bone Density DXA Axial Skeleton [...] probability of hip fracture of 0.9%. Code 33112 -------- FINAL REPORT -------- Dictated By: Russel Tavarez Dictated Date: 01/16/2025 10:28 ET Assigned Physician: Russel Tavarez Reviewed and Electronically Signed By: Russel Tavarez Signed Date: 01/16/2025 10:30 ET Workstation ID: [id number] Transcribed By: Self Edit Transcribed Date: 01/16/2025 [...] density of the femurs bilaterally is 0.848 gm/nw8scdil is 84% of that of young normals [...] probability of hip fracture of 0.9%. Code 27250 -------- FINAL REPORT -------- Dictated By: Russel Tavarez Dictated Date: 01/16/2025 10:28 ET Assigned Physician: Russel Tavarez Reviewed and Electronically Signed By: Russel aTvarez Signed Date: 01/16/2025 10:30 ET Workstation ID: [id number] Transcribed By: Self Edit Transcribed Date: 01/16/2025 [...] year. Mammography location[facility] [address], [address] -------- FINAL REPORT -------- Dictated By: True Norwood Dictated Date: 01/16/2025 10:54 ET Assigned Physician: True Norwood Reviewed and Electronically Signed By: True Norwood Signed Date: 01/16/2025 11:19 ET Workstation ID: [id number] Transcribed By: Self Edit Transcribed Date: 01/16/2025 [...] year. Mammography location: [facility] [address], [address] -------- FINAL REPORT -------- Dictated By: True Norwood Dictated Date: 01/16/2025 10:54 ET Assigned Physician: True Norwood Reviewed and Electronically Signed By: True Norwood Signed Date: 01/16/2025 11:19 ET Workstation ID: [id number] Transcribed By: Self Edit Transcribed Date: 01/16/2025 [...] 01/15/2025 1:06 AM EDT Performed at: 01 - [facility] [id number] Trackless Trolley Driver: Aylin Wood MD, Phone: [phone] us Mae Romero NP LAB BLOOD ORDERABLES Final Resu lt [facility] 1 from Last 3 Months Insurance MEDICARE MEDICAID - [place] Care Teams Bindery Helper Relationship Specialty Start Date End Date Kelby Limon MD [address] [place] [address] PCP - General Internal Medicine 02/02/22
--- OUTSIDE RECORDS SUMMARY | 2025-03-24 20:59 | XMS_ITS | Encounter Summary ---
Author Organization [facility] [place] [address] Care Team Providers Care Advisory Intern Name Role Phone Kelby Limon MD Primary Care Provider [phone] Reason for Visit * Reason Onset Date Comments Hospital Follow-up 03/23/2025 Encounter Details Date Type Department Care Team (Late st Contact Info) Description 03/23/2025 Telephone [facility] [place] [facility] - [facility] [address] [facility] [address] [place] [address] Cj Anderson MD [address] [place] [address] Social History Tobacco Use Types Packs/Day Years [...] AM EDT documented as of this encounter Progress Notes * Itz [place] - 03/23/2025 4:28 PM EDT Patient [facility] for chest pain, discharged 03/22/25. documented in this encounter Plan of Treatment Not on file documented as of this encounter Visit Diagnoses Not on filedocumented in this encounter Care Teams Advisory Intern Relationship Specialty Start Date End Date Kelby Limon MD [address] [place] [phone] PCP - General Internal Medicine 02/02/22 documented as of this encounter
--- OUTSIDE RECORDS SUMMARY | 2025-03-24 20:59 | XMS_ITS | Data Portability ---
Author Organization [place] - [facility], Allergy Address [address] [place] [address] Care Team Providers Care Crown Blocker Name Role Phone ALLEN TRAN Primary Care Provider Assessment Encounter Date Assessment Date Assessment LastModified by Organization Details LastModified Time 10/18/2023 10/18/2023 Audiometric evaluation results: Right ear: Moderate to severe conductive hearing loss with excellent speech discrimination . Left ear: Normal hearing with excellent speech discrimination . Tympanometry: Right Ear: Type B Left Ear: Type A Recommendation s include: Not available 10/18/2023 10:52:16 Plan of Treatment Reminders Order Date Submit Date Provider Last Modified By Organization Details Last Modified Time Details Appointments Establish ed 10 2025 08:30A M SARINA WELLS MD Not available Not available Not available Lab None recorded. Referral None recorded. Procedures None recorded. Surgeries None recorded. Imaging None recorded. Medication Orders fluticaso ne propionat e 50 mcg/actua tion nasal spray,jayson pension 2024 025 [id number], [address] [place], [address], 03/10/2025 09:23:32 clotrimaz ole-betam ethasone 1 %-0.05 % topical cream 2024 025 [id number], [address] [place], [address], 03/10/2025 09:23:31 Patient TargetsNo targets recorded. Patient InstructionsNo instructions recorded. Reason for Referral None Reported. Results Created Date Observation Date Name Description Value Unit Range Abnormal Flag Note LastModifiedBy Organization Detail LastModifiedTime 01/23/20 24 09/21/2020 imagi ng/di agnos tic resul t No observ ation record ed. [email or web address] Not Available 02:48:18 01/23/20 24 10/18/2023 imagi ng/di agnos tic resul t No observ ation record ed. [email or web address] Not Available 02:49:34 01/23/20 24 09/21/2020 audio gram No observ ation record ed. [email or web address] Not Available 02:49:49 01/23/20 24 02/04/2021 audio gram No observ ation record ed. [email or web address] Not Available 02:50:30 Result Notes None recorded. Problems Name Problem SNOMED Code Status Onset Date Resolution Date Notes Provider Name and Address Organization Details Recorded Time Unilater al conducti ve hearing loss with unrestri cted hearing on the contrala teral side Active 2014 Conducti ve HL, unilater al; Note: Date Diagnose d: 5 1:16 PM (389.05) Note: Date Diagnose d: 5 1:16 PM (389.05) SARINA WELLS MD [address] [place] [address], [place], [address] , [facility] - [facility] 4 09:44:52 Migraine variants 701101879 Active 2014 Migraine variant; Note: Date Diagnose d: 5 1:45 PM (346.20) Not Available [facility] 4 02:49:09 Migraine 71370801 Active 2015 Other migraine , not intracta ble, without status migraino jayson; Note: Date Diagnose d: 6 1:26 PM (G43.809 ) [mapped from ICD9 code: 346.20] Not Available [facility] 4 02:49:10 Vertigo of central origin 15247270 Active 2015 Vertigo of central origin, right ear; Note: Date Diagnose d: 6 1:26 PM (H81.41) [mapped from ICD9 code: 386.2] Vertig o of central origin; Note: Date Diagnose d: 5 1:45 PM (386.2) ; Start Date : 02/16/20 15 Not Available [facility] 4 02:49:09 Perforat ion of tympanic membrane 71761261 Active 2015 Perforat ion of tympanic membrane , unspecif ied; Note: Date Diagnose d: 5 1:45 PM (384.20) ; Start Date : 02/16/20 15 Unspe cified perforat ion of tympanic membrane , unspecif ied ear; Note: Date Diagnose d: 6 1:26 PM (H72.90) [mapped from ICD9 code: 384.20] Not Available [facility] 4 02:49:11 Acquired blepharo phimosis 88340799 Active 2015 Blepharo phimosis right upper eyelid; Note: Date Diagnose d: 09/09/2015 1:20 PM (H02.521 ) Note: Date Diagnose d: 09/09/2015 1:20 PM (H02.521 ) Blepha rophimos is left upper eyelid; Note: Date Diagnose d: 09/09/2015 1:20 PM (H02.524 ) Note: Date Diagnose d: 09/09/2015 1:20 PM (H02.524 ) SARINA WELLS MD [address] [place] [address], [place], [address] [facility] 4 09:43:14 Headache 55376315 Active 2015 Headache , unspecif ied; Note: Changed from R51 to R51.9 (01/15/20 12:49 PM) , Date Diagnose d: 09/09/2015 1:21 PM (R51) Not Available [facility] 4 02:49:13 Chronic rhinitis 96179035 Active 2015 Chronic rhinitis ; Note: Date Diagnose d: 09/09/2015 1:21 PM (J31.0) Note: Date Diagnose d: 09/09/2015 1:21 PM (J31.0) SARINA WELLS MD [address] [place] [address], [place], [address] , [facility] 4 09:43:24 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 Other disorder s followin g mastoide ctomy, right ear; Note: Date Diagnose d: 1 9:46 AM (H95.191 ) Not Available [facility] 4 02:49:11 Marginal perforat ion of tympanic membrane 33862968 Active 2020 Other marginal perforat ions of tympanic membrane , right ear; Note: Date Diagnose d: 1 9:49 AM (H72.2X1 ) Note: Date Diagnose d: 1 9:49 AM (H72.2X1 ) SARINA WELLS MD [address] [place] [address], [place], [address] , [facility] 5 09:24:50 Finding of device of ear 583254365 Active 2020 Presence of bone-con duction hearing device; Note: Date Diagnose d: 1 9:50 AM (Z96.29) Note: Date Diagnose d: 1 9:50 AM (Z96.29) SARINA WELLS MD [address] [place] [address], [place], [address] , [facility] 4 09:43:55 Conducti ve hearing loss 21701496 Active 2020 Conducti ve hearing loss, unilater al, right ear, with unrestri cted hearing on the contrala teral side; Note: Date Diagnose d: 1 10:26 AM (H90.11) Note: Date Diagnose d: 1 10:26 AM (H90.11) Conduc tive hearing loss, unilater al, right ear, with unrestri cted hearing on the contrala teral side; Note: Date Diagnose d: 6 1:26 PM (H90.11) [mapped from ICD9 code: 389.05] Note: Date Diagnose d: 6 1:26 PM (H90.11) [mapped from ICD9 code: 389.05] ; Start Date : 08/18/19 SARINA WELLS MD [address] [place] [address], [facility] [place], [address] , [facility] - [facility] 4 09:43:38 Marginal perforat ion of tympanic membrane 84546447 Active 2020 Other marginal perforat ions of tympanic membrane , right ear; Note: Date Diagnose d: 1 9:49 AM (H72.2X1 ) Not Available [facility] 4 02:49:14 Conducti ve hearing loss 08476858 Active 2020 Conducti ve hearing loss, unilater al, right ear, with unrestri cted hearing on the contrala teral side; Note: Date Diagnose d: 1 10:26 AM (H90.11) Conduc tive hearing loss, unilater al, right ear, with unrestri cted hearing on the contrala teral side; Note: Date Diagnose d: 6 1:26 PM (H90.11) [mapped from ICD9 code: 389.05] ; Start Date : 08/18/19 16 Not Available [facility] 4 02:49:14 Disorder of nasal sinus 1415088 Active 2020 Perforat ion of nasal septum NOS; Note: Date Diagnose d: 1 2:32 PM (J34.89) Not Available [facility] 4 02:49:11 Disorder of the nose 97314342 Active 2020 Perforat ion of nasal septum NOS; Note: Date Diagnose d: 1 2:32 PM (J34.89) Not Available [facility] 4 02:49:11 Dyspnea 717760181 Active 2020 Shortnes s of breath; Note: Date Diagnose d: 1 2:32 PM (R06.02) Not Available [facility] 4 02:49:11 Complica tion associat ed with neurolog ical device 658981512 Completed 202010/18/2023 Other specifie d complica tion of nervous system prosthet ic devices, implants and grafts, initial encounte r; Note: Date Diagnose d: 1 2:00 PM (T85.890 A) Note: Date Diagnose d: 1 2:00 PM (T85.890 A) SARINA WELLS MD [address] [place] [address],[place] [address], [place], [address] , [facility] - [facility] 4 09:43:30 Vasomoto r rhinitis 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 2022 Vasomoto r rhinitis ; Note: Date Diagnose d: 3 9:17 AM (J30.0) Not Available [facility] 4 02:49:12 Superfic ial mycosis 280151451 Completed 202210/18/2023 Other specifie d superfic ial mycoses; Note: Date Diagnose d: 04/17/20 23 9:29 AM (B36.8) Note: Date Diagnose d: 04/17/20 9:29 AM (B36.8) SARINA WELLS MD [address] [place] [address],[place] [address], [place], [address] , [facility] - [facility] 4 09:44:31 Allergic rhinitis 06780643 Active 2022 Other allergic rhinitis ; Note: Date Diagnose d: 04/17/20 23 9:30 AM (J30.89) Note: Date Diagnose d: 04/17/20 9:30 AM (J30.89) SARINA WELLS MD [address] [place] [address],[place] [address], [place], [address] , [place] - [facility] 5 09:25:15 Disorder of external ear 86788394 Active 2023 SARINA WELLS MD [address] [place] [address],[address], [place], [address] , [place] - [facility] 5 09:24:50 Sensorin eural hearing loss 97262549 Active 2023 LESLIE GONZALEZNAUGH, AUD [address], [place], [address] , [place] - [facility] [place] 4 10:19:29 Abnormal auditory percepti on 50357226 Active 2023 LESLIE MATT, AUD [address], [place], [address] , [place] - [facility] [place] 4 10:19:29 Conducti ve hearing loss of right ear 4497112781 Active 2023 LESLIE MATT, AUD [address], [place], [address] , [place] - [facility] [place] 4 10:24:43 Conducti ve hearing loss of right ear with normal hearing on left side 3373615379 Active 2023 LESLIE GUTIERREZ, AUD [address] [place],[address], [place], [address] , [place] - [facility] 4 10:28:15 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 Procedures Surgical History Date Name Laterality Status Provider Name and Address Organization Details Recorded Time 03/10/20 25 Debridement of Ear canal right completed SARINA WELLS MD [address] [facility], [place], [address], [facility] - [facility] 03/09/2025 16:28:10 07/24/19 25 Debridement of Ear canal right completed SARINA WELLS MD [address] [facility], [place], [address], [place] - [facility] 04/23/2024 12:56:51 10/18/19 24 Comp Audio with Tymps - 28311 & 55196 completed GERMAN BAZAN [address] [facility],[place] [address], [place], [address], [facility] 10/19/2023 10:23:33 10/18/19 24 Debridement of Ear canal right completed SARINA WELLS MD [address] [facility],[place] [address], [place], [address], [facility] - [facility] 10/18/2023 09:42:57 Rebuild eardrum structures completed Chloé Bobo [facility] 10/18/2023 09:32:39 Mastoidectomy completed Chloé Bobo [place] [facility] 10/18/2023 09:32:50 insertion of bone anchors for subcutaneous bone anchored hearing aid completed Chloé Bobo [place] [facility] 10/18/2023 09:33:00 Hysterectomy completed Chloé Bobo [place] [facility] 10/18/2023 09:33:07 reconstruction of facial bones completed Chloé Bobo [facility] 10/18/2023 09:33:16 Imaging Results None recorded. Procedure Notes None recorded. Medical Equipment None Reported. Allergies Allergen ID Allergen Name Allergen Category Reaction Reaction Severity Criticality Documentation Date Start Date Code Code System Note Provider Name and Address Organization Details Recorded Time 844728 Tylox medicatio n Not available Not available Not available 10/18/2023 55352 5 RxNorm Chloé sanchez [facility] 4 09:26:39 19357 levofloxa wilfrido medicatio n other Not available Not available 10/16/2023 34832 RxNorm React ion: unkno wn, unspe cifie d;; Not Available [facility] 4 01:04:20 07840 acetamino phen / hydrocodo ne medicatio n other Not available Not available 10/16/2023 86416 2 RxNorm React ion: unkno wn, unspe cifie d;; Not Available [facility] 4 01:04:22 82021 morphine medicatio n other Not available Not available 10/16/2023 7052 RxNorm React ion: other react ion, Unkno wn; Not Available [facility] 4 01:04:22 68709 acetamino phen / oxycodone medicatio n other Not available Not available 10/16/2023 20856 3 RxNorm React ion: unkno wn, unspe cifie d;; Not Available [facility] 4 01:04:23 49295 Substance with sulfonami de structure and antibacte rial mechanism of action (substanc e) medicatio n other Not available Not available 10/16/2023 17254 8003 SNOMED React ion: unkno wn, unspe cifie d;; Not Available [facility] 4 01:04:24 74225 acetamino phen / oxycodone medicatio n other Not available Not available 10/16/2023 50980 3 RxNorm React ion: unkno wn, unspe cifie d;; Not Available [facility] 4 01:04:25 Medications Name Sig Start Date Stop Date Status Note LastModified by Organization Details LastModified Time atorvasta tin 40 mg tablet TAKE 1 TABLET BY MOUTH EVERY DAY active Not Available Not Available No t Available metformin 500 mg tablet TAKE 1 TABLET BY MOUTH TWICE A DAY active Not Available Not Available No t Available gabapenti n 600 mg tablet TAKE 1 TABLET BY MOUTH TWICE A DAY active Not Available Not Available No t Available albuterol sulfate 2.5 mg/3 mL (0.083 %) solution for nebulizat ion INHALE 1 VIAL VIA NEBULIZE R EVERY 6 HOURS NEEDED FOR WHEEZING ,J45.40 active Not Available Not Available No t Available triamcino lone acetonide 0.5 % topical cream APPLY A THIN FILM TO AFFECTED AREA TWICE A DAY active Not Available Not Available No t Available ofloxacin 0.3 % eye drops PLACE 1 DROP BOTH EYES TWICE A DAY FOR 4 DAYS 10/17 completed Not Available Not Available Not Available FreeStyle Lancets 28 gauge USE TO CHECK GLUCOSE LEVEL DAILY 07/24 completed Not Available Not Available Not Available atenolol 25 mg tablet 12.5 mg by oral route. 2023 active Not Available Not Available Not Avai lable Nexium 40 mg capsule,d elayed release 09/21 completed Medicati on ID: [id number] Du ration Value: 30 Brand Name: Nexium S end Method: E-Prescr ibed Sub s Allowed: subs OK Speci al Instruct ion: 1 CAPSULE BY MOUTH DAILY,IN STR:BRAN D NAME NEXIUM . NO SUBSTITU TION Med icationG enericNa me: Nexium Not Available Not Available Not Available tramadol 50 mg tablet TAKE 1 TABLET ORALLY EVERY 8 HOURS NEEDED FOR PAIN FOR 3 DAYS 10/17 completed Not Available Not Available Not Available levothyro xine 100 mcg tablet 09/21 completed Medicati on ID: [id number] Du ration Value: 90 Brand Name: levothyr oxine Se nd Method: E-Prescr ibed Sub s Allowed: subs OK Speci al Instruct ion: TAKE 1 TABLET BY MOUTH EVERY DAY Medi cationGe nericNam e: levothyr oxine Not Available Not Available Not Available famotidin e 20 mg tablet TAKE 1 TABLET BY MOUTH TWICE A DAY active Not Available Not Available No t Available lorazepam 0.5 mg tablet 09/21 completed Medicati on ID: [id number] Br and Name: lorazepa m Send Method: E-Prescr ibed Sub s Allowed: subs OK Medic ationGen ericName : lorazepa m Not Available Not Available Not Available baclofen 10 mg tablet TAKE 1/2 TABLET BY MOUTH 2 TIMES A DAY AND 1 TABLET AT BEDTIME NEEDED FOR SPASM active Not Available Not Available No t Available potassium citrate ER 10 mEq (1,080 mg) tablet,ex tended release TAKE 1 TABLET BY MOUTH TWICE A DAY active Not Available Not Available No t Available erythromy wilfrido 5 mg/gram (0.5 %) eye ointment APPLY TO BOTH EYES AT BEDTIME WHEN NEEDED 10/17 completed Not Available Not Available Not Available clotrimaz ole-betam ethasone 1 %-0.05 % topical cream APPLY TO THE SKIN OF THE AFFECTED EXTERNAL EAR CANAL WITH FINGERTI P 3 TIMES PER DAY FOR 2 WEEKS 2024 active Not Available Not Available Not Avai lable Synthroid 88 mcg tablet 04/17 completed Medicati on ID: [id number] B rand Name: Synthroi d Send Method: E-Prescr ibed Sub s Allowed: subs OK Medic ationGen ericName : Synthroi d Not Available Not Available Not Available Advair Diskus 250 mcg-50 mcg/dose powder for inhalatio n 09/21 completed Medicati on ID: [id number] D uration Value: 30 Brand Name: Advair Saucedo S end Method: E-Prescr ibed Sub s Allowed: subs OK Speci al Instruct ion: TAKE 1 PUFF BY MOUTH TWICE DAILY Me dication GenericN stephanie: Advair Diskus Not Available Not Available Not Available Aspirin Childrens 81 mg chewable tablet 09/27 completed Medicati on ID: [id number] B rand Name: Aspirin Children s Send Method: E-Prescr ibed Sub s Allowed: subs OK Medic ationGen ericName : Aspirin Children s Not Available Not Available Not Available diclofena c sodium 75 mg tablet,de layed release TAKE 1 TABLET BY MOUTH EVERY DAY active Not Available Not Available No t Available mont[address] [facility] 10 mg tablet TAKE 1 TABLET BY MOUTH EVERY EVENING active Not Available Not Available No t Available hydrochlo rothiazid e 25 mg tablet TAKE 1 TABLET BY MOUTH EVERY DAY active Not Available Not Available No t Available albuterol sulfate HFA 90 mcg/actua tion aerosol inhaler INHALE 2 PUFFS BY MOUTH EVERY 6 HOURS active Not Available Not Available No t Available fluticaso ne propionat e 50 mcg/actua tion nasal spray,jayson pension [place] 1 spray twice a day by intranas al route. 2024 active Not Available Not Available Not Avai lable ipratropi um bromide 21 mcg (0.03 %) nasal spray SPRAY 2 SPRAY NASL THREE TIMES A DAY 10/17 completed Not Available Not Available Not Available loratadin e 10 mg tablet TAKE 1 TABLET BY MOUTH EVERY DAY 10/17 completed Not Available Not Available Not Available amoxicill in 500 mg-potass ium clavulana te 125 mg tablet TAKE 1 TABLET BY MOUTH TWICE A DAY 10/17 completed Not Available Not Available Not Available Vitamin D3 25 mcg (1,000 unit) capsule 2014 active Medicati on ID: [id number] Br and Name: Vitamin D3 Send Method: E-Prescr ibed Sub s Allowed: subs OK Medic ationGen ericName : Vitamin D3 Not Available Not Available Not Available Restasis 0.05 % eye drops in a dropperet te INSTILL 1 DROP INTO BOTH EYES TWICE A DAY active Not Available Not Available No t Available aripipraz ole 5 mg tablet TAKE 1 TABLET BY MOUTH EVERY DAY IN THE MORNING active Not Available Not Available No t Available bupropion HCl XL 300 mg 24 hr tablet, extended release 03/22 completed Medicati on ID: [id number] B rand Name: bupropio n HCl Send Method: E-Prescr ibed Sub s Allowed: subs OK Medic ationGen ericName : bupropio n HCl Not Available Not Available Not Available DILT-XR 120 mg capsule, extended release 10/17 completed Medicati on ID: [id number] B rand Name: DILT-XR Send Method: E-Prescr ibed Sub s Allowed: subs OK Medic ationGen ericName : DILT-XR Medicati on ID: [id number] B rand Name: DILT-XR Send Method: E-Prescr ibed Sub s Allowed: subs OK Medic ationGen ericName : DILT-XR Not Available Not Available Not Available duloxetin e 30 mg capsule,d elayed release TAKE 1 CAPSULE BY MOUTH ONCE A DAY TAKE WITH 60 MG CAPSULE TOTAL 90MG DAILY active Not Available Not Available No t Available duloxetin e 60 mg capsule,d elayed release TAKE 1 CAPSULE BY MOUTH ONCE A DAY. TAKE WITH 30MG CAPSULE FOR TOTAL 90MG active Not Available Not Available No t Available solifenac in 10 mg tablet TAKE 1 TABLET BY MOUTH EVERY DAY active Not Available Not Available No t Available ibandrona te 150 mg tablet PLEASE SEE ATTACHED FOR DETAILED DIRECTIO NS 01/02 completed Not Available Not Available Not Available Artificia l Tears 09/21 completed Medicati on ID: [id number] Br and Name: Artifici al Tears Se nd Method: E-Prescr ibed Sub s Allowed: subs OK Medic ationGen ericName : Artifici al Tears Not Available Not Available Not Available multivita min 09/27 completed Medicati on ID: [id number] Br and Name: multivit gold Sen d Method: E-Prescr ibed Sub s Allowed: subs OK Medic ationGen ericName : multivit gold Not Available Not Available Not Available aripipraz ole 2 mg tablet TAKE 1 TABLET BY MOUTH EVERY DAY IN THE MORNING 07/24 completed Not Available Not Available Not Available budesonid e-formote rol HFA 160 mcg-4.5 mcg/actua tion aerosol inhaler INHALE 2 PUFFS 2 TIMES A DAY, RINSE MOUTH AND THROAT AFTER USE active Not Available Not Available No t Available FreeStyle Lite Strips USE TO CHECK GLUCOSE LEVEL DAILY 07/24 completed Not Available Not Available Not Available diclofena c 1 % topical gel APPLY 3 GRAMS TOPICALL Y THREE TIMES A DAY FOR 30 DAYS 07/24 completed Not Available Not Available Not Available Tirosint 75 mcg capsule TAKE 1 CAPSULE BY MOUTH EVERY DAY active Not Available Not Available No t Available Xiidra 5 % eye drops in a dropperet te INSTILL ONE DROP INTO BOTH EYES TWICE A DAY. 90 DAYS SUPPLY 06/23 completed Not Available Not Available Not Available Miebo (PF) 100 % eye drops INSTILL 1 DROP INTO BOTH EYES 4 TIMES A DAY active Not Available Not Available No t Available Vitals Date Recorded Body height Body weight Provider Name and Address Organization Details Last Updated DateTime 07/24/2024 149.86 cm 99456.31 g Chloé Bobo [facility] 07/24/2024 13:59:09 Date Recorded Body height Body weight Provider Name and Address Organization Details Last Updated DateTime 10/18/2023 149.86 cm 10908.31 g Chloé Bobo [facility] 10/18/2023 09:25:56 Social History None recorded. Functional Status None recorded. Mental Status None recorded. Family History Relationship Description Onset Age of this Age Resolved Age Notes LastModified by Organization Details LastModified Time Mother Diabetes mellitus [email or web address] Not available 13:59:13 Medical History Condition Response Diabetes Y Allergies/Hayfever Y Hearing Loss Y Anxiety Y Migraines Y Thyroid Problems Y Asthma Y Depression Y Nasal or Sinus Problems Y High Cholesterol Y GERD/Reflux Y Anesthesia Complications Y Headaches Y Gynecological HistoryNo gynecological history recorded. Obstetrics History GPAL:G 0 P 0 0 0 0 Past Encounters Encounter ID Performer Location Encounter Start Date Encounter Closed Date Diagnosis/Indication Diagnosis SNOMED-CT Code Diagnosis ICD10 Code Diagnosis IMO Codes Diagnosis Note [id number] SARINA WELLS MD [facility] [address] [address] 10/18/2023 09:10:56 10/18/2023 10:56:08 Finding of device of ear [id number] Z96.29 The right [place] [employer] site remains well-johanna ated and doing well overall. Continue with current site maintenanc e and follow-up with audiology for device programmin g Marginal p erforation of tympanic membrane 78461466 H72.2X1 Disorder o f external ear 55048459 H61.91 The right reconstruc amrit external auditory canal was cleaned today under the binocular microscope . No signs of acute or chronic inflammati on. Perforatio n in the tympanic membrane appears unchanged. We will continue with routine cleanings every 6 months to prevent debris impaction. Conductive hearing loss of right ear 3822301275 H90.11 Audiometri c testing today shows maximal conductive hearing loss in the right ear, and normal hearing in the left ear. The right ear remains excellent candidate to continue with her Baha technology . [address] GERMAN BAZAN [facility] [address] [address] 10/18/2023 10:12:23 10/22/2023 14:52:26 Conductive hearing loss of right ear with normal hearing on left side [id number] H90.11 Sensorineu ral hearing loss [id number] H90.3 Conductive hearing loss of right ear [id number] H90.2 Audiometri c evaluation results:Ri ght ear:Modera te to severe conductive hearing loss with excellent speech discrimina tion.Left ear:Normal hearing with excellent speech discrimina tion. Tympanomet ry:Right Ear:Type BLeft Ear:Type A Recommenda tions include: [id number] SARINA WELLS MD [facility] [address] [address] 07/24/2024 13:45:08 07/24/2024 14:36:03 Finding of device of ear [id number] Z96.29 The right Baha Connect site remains well-johanna ated and doing well overall. Continue with current site maintenanc e and follow-up with audiology for device programmin g Marginal p erforation of tympanic membrane [id number] H72.2X1 Disorder o f external ear [id number] H61.91 The right reconstruc amrit external auditory canal was cleaned today under the binocular microscope . No signs of acute or chronic inflammati on. Perforatio n in the tympanic membrane appears unchanged. We will continue with routine cleanings every 6 months to prevent debris impaction. [id number] SARINA WELLS MD [facility] [address] [place] [address] 03/10/2025 08:57:51 03/10/2025 09:27:12 Finding of device of ear [id number] Z96.29 The right Baha Connect site remains well-johanna ated and doing well overall. Continue with current site maintenanc e and follow-up with audiology for device programmin g Marginal p erforation of tympanic membrane [id number] H72.2X1 Disorder o f external ear [id number] H61.91 The right reconstruc amrit external auditory canal was cleaned today under the binocular microscope . No signs of acute or chronic inflammati on. Perforatio n in the tympanic membrane appears unchanged. We will continue with routine cleanings every 6 months to prevent debris impaction. Allergic rhinitis 043046 04 J30.89 Patient doing well on topical Flonase spray. 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 Health Concerns Section Related Observation LastModified by Organization Detai ls LastModified Time None Recorded Concern Status LastModified by Organization Details LastModified Time None Recorded Advance Directives Directive None Recorded Payers Insurance Date Sequence Insurance Name Policy Number Policy Degroot Covered Member ID Degroot Member ID Guarantor Name 03/10/2025 1 [place] [employer] Lucy Worley [id number] Lucy Worley 03/07/2025 2 [place] [facility] Lucy Worley [id number] Lucy Worley 03/10/2025 1 [place] [employer] Lucy Worley [id number] Lucy Weaver Brunilda Notes Date Note Type Note Provider Name and Address Organization Details Recorded Time 10/18/2023 text/html 63-year-old female with a right-sided Baha Connect implant in place for many years, which was done at an outside institution. Our audiology group is managing the external device programming. 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 SARINA WELLS MD [address] [facility],[address], [address], [facility] 10/18/2023 10:55:58 07/24/2024 text/html 63-year-old female with a right-sided Baha Connect implant in place for many years, which was done at an outside institution. Our audiology group is managing the external device programming. 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 SARINA WELLS MD [address] [facility],[address], [address], [facility] 07/24/2024 14:35:39 03/10/2025 text/html 64-year-old female with a right-sided Baha Connect implant in place for many years, which was done at an outside institution. Our audiology group is managing the external device programming. 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 SARINA WELLS MD [address] [facility],[address], [address], [facility] - [facility] 03/10/2025 09:27:38 OBGyn Episode No OBEpisode recorded.
== END 2025-03-24 16:16 | disposition home or self-care (01) ==
LOC: HO.LAB 16:15
PROVIDERS: PCP Internal Medicine; Visit Provider Urology
DX: Z13.89 Encounter for screening for other disorder (principal)

== ENCOUNTER 2025-03-26 13:05 | Outpatient (REF) | payer MEDICARE, MEDICAID, SELFPAY ==
--- OUTSIDE RECORDS SUMMARY | 2025-03-21 22:36 | XMS_ITS | Encounter Summary ---
Author Organization [facility] [place] [address] Care Team Providers Care Vegetable Scullion Name Role Phone Kelby Limon MD Primary Care Provider [phone] Reason for Visit * Reason Comments Chest Pain Encounter Details Date Type Department Care Team (Late st Contact Info) Description 03/21/2025 10:36 PM EDT - 03/22/2025 1:43 AM EDT Emergency [facility] Emergency [address] [place] [address] Chest pain, unspecified type (Primary Dx); Premature atrial contractions Discharge Disposition: Home or Self Care Social History Tobacco Use Types Packs/Day Years [...] not to disclose 2024 8:48 AM EDT documented as of this encounter Last Filed Vital Signs Vital Sign Reading Time Taken Comments Blood Pressure 114/68 03/21/2025 10:53 PM EDT Pulse 69 03/21/2025 10:53 PM EDT Temperature 36.6 C (97.9 F) 03/21/2025 10:53 PM EDT Respiratory Rate 18 03/21/2025 10:53 PM EDT Oxygen Saturation 95% 03/21/2025 10:53 PM EDT Inhaled Oxygen Concentration - - Weight 52.2 kg (115 lb) 03/21/2025 7:42 PM EDT Height 149.9 cm (4' 11 ) 03/21/2025 7:42 PM EDT Body Mass Index 23.23 03/21/2025 7:42 PM EDT documented in this encounter Functional Status * Calculated C-SSRS Risk Score (Lifetime/Recent) Answer Date of Assessment Author No Risk Indicated 03/21/2025 7:42 PM EDT Ro Lin RN * [place] Suicide Severity Rating Scale (Screener/Recent Self-Report) Question Answer Date of Assessment Author 1. Wish to be (Past 1 Month) No 03/21/2025 7:42 PM EDT Queenie Anne RN 2. Non-Specific Active Suicidal Thoughts (Past 1 Month) No 03/21/2025 7:42 PM EDT Queenie Anne RN 6. Suicidal Behavior (Lifetime) No 03/21/2025 7:42 PM EDT Queenie Anne RN documented as of this encounter Discharge Instructions * Attachments The following attachments cannot be sent through Care Everywhere. * Chest Pain (Jamaican) documented in this encounter Medications at Time of Discharge ARIPiprazole (ABILIFY) 5 mg tablet Take 1 tablet (5 mg total) by mouth 1 (one) time each day. atenoloL (TENORMIN) 25 mg tablet Take 0.5 tablets (12.5 mg total) by mouth 1 (one) time each day. 02/08/2021 atorvastatin (LIPITOR) 40 mg tablet Take 1 tablet (40 mg total) by mouth at bedtime. 03/25/2024 budesonide-formo teroL (SYMBICORT) 160-4.5 mcg/actuation inhaler Inhale 2 puffs by mouth 2 (two) times a day. cholecalciferol (VITAMIN D-3) 50 mcg (2,000 unit) capsule Take by mouth 1 (one) time each day. DULoxetine (CYMBALTA) [address] capsule Take 1 capsule (60 mg total) by mouth 1 (one) time each day. 10/02/2024 famotidine (PEPCID) 20 mg tablet Take 1 tablet (20 mg total) by mouth 1 (one) time each day. 03/25/2024 fluticasone propionate (FLONASE) 50 mcg/actuation nasal spray Administer 1 spray into each nostril 1 (one) time each day. 09/25/2024 gabapentin (NEURONTIN) 600 mg tablet Take 1 tablet (600 mg total) by mouth 1 (one) time each day. 03/25/2024 hydroCHLOROthiaz aba (HYDRODIURIL) 25 mg tablet Take 1 tablet (25 mg total) by mouth. 03/25/2024 ketorolac (TORADOL) 10 mg tablet Take 1 tablet (10 mg total) by mouth every 6 (six) hours if needed for moderate pain for up to 5 days. 20 tablet 03/22/2025 levothyroxine sodium (Tirosint) 75 mcg capsule Take 1 capsule (75 mcg total) by mouth 1 (one) time each day. 09/15/2024 metFORMIN (GLUCOPHAGE) 500 mg tablet Take 1 tablet (500 mg total) by mouth 2 (two) times a day with meals. 03/25/2024 montelukast (Singulair) 10 mg tablet Take 1 tablet (10 mg total) by mouth at bedtime. 03/25/2024 potassium citrate (UROCIT-K) 10 mEq (1,080 mg) CR tablet Take 1 tablet (10 mEq total) by mouth 2 (two) times a day with meals. 03/25/2024 solifenacin (VESICARE) 5 mg tablet Take 2 tablets (10 mg total) by mouth 1 (one) time each day. 08/24/2022 traMADoL (ULTRAM) 50 mg tablet Take 1 tablet (50 mg total) by mouth every 6 (six) hours if needed. documented as of this encounter Ordered Prescriptions Prescription Sig Dispense Quantity Refills Last Filled Start Date End Date ketorolac (TORADOL) 10 mg tablet Take 1 tablet (10 mg total) by mouth every 6 (six) hours if needed for moderate pain for up to 5 days. 20 tablet 03/22/2025 5 documented in this encounter Discharge Disposition Disposition Code Departure Means Destination Comment s Home or Self Care Patient alert and oriented at time of discharge. Patient informed to return to ED with worsening symptoms and to follow up with PCP. 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 Patient's medications reviewed and sent to preferred pharmacy. Patient left with even and steady gait. documented in this encounter Progress Notes * Ro Anne RN - 03/21/2025 7:40 PM EDT Chest pain mid sternal 2 months. Followed by cardiology . Pt had a cardiac ct 1 month ago and it was neg . Pain is sharp and off and on . 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 States that the pain feels sharp and is on and off not provoked by anything in particular. Denying fever chills cough hemoptysis trauma injury leg swelling. Motrin prior to arrival with no relief. Does report history of premature atrial contractions. [place] Coma Scale Score: 15 Patient History Medical History[1] Surgical History[2] Family History[3] Social History Tobacco Use Smoking status: Never Smokeless tobacco: Never Substance Use Topics Alcohol use: Not Currently Drug use: Never Review of Systems Review of Systems Physical Exam ED Triage Vitals Temp Heart Rate Resp BP 03/21/25194403/21/25194403/21/25194403/21/251944 36.5 ??C (97.7 ??F) 82 16 (!) 140/79 SpO2 Temp Source Heart Rate Source Patient Position 03/21/25194403/21/25194403/21/25225203/21/252252 97 % Oral Monitor Sitting BP Location FiO2 (%) 03/21/25 2253 -- Left arm Physical Exam GENERAL: No acute distress HEENT: Normocephalic and atraumatic, EOMI NECK: Supple, trachea is midline RESP: No respiratory distress, lung sounds clear and equal bilaterally, speaking complete sentences CARDIOVASCULAR: Heart sounds crisp without murmur, regular rate no chest wall tenderness GASTROINTESTINAL: Abdomen is soft, non distended MUSCULOSKELETAL: No obvious acute deformities, ROM intact SKIN: Warm and dry NEUROLOGIC: At baseline, no acute focal deficits PSYCHIATRIC: Calm and cooperative ED Course & MDM Clinical Impressions as of 03/22/25 0440 Chest pain, unspecified type Premature atrial contractions Medical Decision Making Differential diagnosis chest pain secondary to acute cardiopulmonary condition consideration for GIMSK source as well Vital signs reviewed Oxygen Saturation >94% on room air Physical exam with no findings suggestive of emergent condition Nursing notes and additional records reviewed EKG findings with no findings of life threatening arrhythmia or acute ischemia Chest x-ray with no tracheal deviation, obvious pneumothorax or effusion CBC negative for significant leukocytosis or anemia requiring blood transfusion Metabolic panel negative for significant electrolyte abnormality, no signs of acute organ dysfunction Troponin negative x 2 Repeat EKG noting premature atrial complexes consistent patient's history, watched monitor closely seeing this happening with some regularity but no concerns for block or A-fib On re-evaluation patient feeling much better No indication for hospitalization at this time as patient has appropriate outpatient resources and been worked up rather thoroughly of late Social determinants of health considered including housing follow-up social and financial support Patient deemed appropriate for discharge with symptomatic treatment, recommendations to follow-up with primary care doctor / specialist with return precautions provided Procedures [1] Past Medical History: Diagnosis Date Anxiety DX:Anxiety Asthma DX:Asthma Blepharophimosis, ptosis, and epicanthus inversus syndrome DX:Blepharophimosis, ptosis, and epicanthus inversus syndrome Chronic mixed headache syndrome DX:Chronic mixed headache syndrome 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: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) Controlled type 2 diabetes mellitus without complication (CMS/HCC V24, CMS/HCC V28) DX:Controlled type 2 diabetes mellitus without complication (HCC) Depression, major, in partial remission (CMS/HCC V24) DX:Depression, major, in partial remission (HCC) Esophageal reflux DX:Esophageal reflux Foot drop, right DX:Foot drop, right Clarisa's thyroiditis DX:Clarisa's thyroiditis Hearing loss, neural DX:Hearing loss, neural History of foot fracture DX:History of foot fracture History of pulmonary embolism DX:History of pulmonary embolism Hypercalciuria DX:Hypercalciuria Hypovitaminosis D DX:Hypovitaminosis D Kidney stone DX:Kidney stone Osteoarthritis of knee DX:Osteoarthritis of knee Osteopenia DX:Osteopenia Peripheral neuropathy DX:Peripheral neuropathy Urinary incontinence, mixed DX:Urinary incontinence, mixed [2] Past Surgical History: Procedure Laterality Date APPENDECTOMY PROCEDURE: HISTORICAL APPENDECTOMY COLONOSCOPY 2018 PROCEDURE: HISTORICAL COLONOSCOPY ELBOW SURGERY PROCEDURE: HISTORICAL ELBOW SURGERY; COMMENT: fracture OTHER SURGICAL HISTORY 07/18/2012 PROCEDURE: HISTORY OTHER; COMMENT: Bone density study, dual photon absorptiometry OTHER SURGICAL HISTORY PROCEDURE: IA RAD ABDL HYSTERECTOMY W/BI PELVIC LMPHADENECTOMY OTHER SURGICAL HISTORY PROCEDURE: HISTORY OTHER; COMMENT: Face OTHER SURGICAL HISTORY PROCEDURE: HISTORY OTHER; COMMENT: Rhinoplasty OTHER SURGICAL HISTORY PROCEDURE: HISTORY OTHER; COMMENT: Laparoscopic adhesiolysis OTHER SURGICAL HISTORY PROCEDURE: HISTORY OTHER; COMMENT: Excision of mastoid SHOULDER SURGERY PROCEDURE: HISTORICAL SHOULDER SURGERY TOTAL KNEE ARTHROPLASTY PROCEDURE: HISTORICAL TOTAL KNEE REPLACE WRIST SURGERY PROCEDURE: HISTORICAL WRIST SURGERY [3] No family history on file. BRANDIE Alvarenga 03/22/25 0442 Cosigned by Chayito Murray MD at 03/22/2025 9:22 AM EDT Associated attestation - Chayito Murray MD - 03/22/2025 9:22 AM EDT I was available for consult in real time on shift and if asked my input in care is as outlined by the documentation below by me. If not documented, then I did not participate in the care of this patient and have reviewed the chart as written. Chayito Murray MD documented in this encounter Plan of Treatment Upcoming Encounters Date Type Department Care Team (Late st Contact Info) Description 03/30/2025 8:10 AM EDT Office Visit [facility] [address] [facility] [address] [place] [address] Mae Romero NP [address] [place] [address] [place] [id number] documented as of this encounter Procedures Procedure Name Priority Date/Time Associated Diagnosis Comments ECG ANNOTATED 03/23/2025 ECG 12-LEAD STAT 03/21/2025 11:47 PM EDT TROPONIN I HIGH SENSITIVITY Timed 03/21/2025 11:39 PM EDT TROPONIN I HIGH SENSITIVITY Timed 03/21/2025 10:14 PM EDT CBC WITH AUTO DIFFERENTIAL STAT 03/21/2025 10:14 PM EDT ACTIVATED PARTIAL THROMBOPLASTIN TIME STAT 03/21/2025 10:14 PM EDT PROTHROMBIN TIME WITH INR STAT 03/21/2025 10:14 PM EDT D-DIMER STAT 03/21/2025 10:14 PM EDT CBC AND DIFFERENTIAL STAT 03/21/2025 10:14 PM EDT B-TYPE NATRIURETIC PEPTIDE STAT 03/21/2025 10:14 PM EDT MAGNESIUM STAT 03/21/2025 10:14 PM EDT LIPASE STAT 03/21/2025 10:14 PM EDT COMPREHENSIVE METABOLIC PANEL STAT 03/21/2025 10:14 PM EDT XR CHEST 2 VIEWS STAT 03/21/2025 10:0 6 PM EDT ECG 12-LEAD STAT 03/21/2025 7:52 PM EDT documented in this encounter Results * ECG-Annotated (03/23/2025) us Provider Onbase MD ECG ORDERABLES Final Result * ECG 12 lead (03/21/2025 11:47 PM EDT) Pathologist [facility] Ventricular Rate ECG 66 BPM GEMUSE Atrial Rate 68 BPM GEMUSE QRS Duration 90 ms GEMUSE Q-T Interval 412 ms GEMUSE QTc 431 ms GEMUSE P Wave [place] 51 degrees GEMUSE R [place] 41 degrees GEMUSE T [place] 58 degrees GEMUSE ECG Interpretation Sinus rhythm with Premature supraventricular complexes Abnormal ECG When compared with ECG of 21-MAR-2025 19:52, Premature supraventricular complexes are now Present Confirmed by MD Sinan, Emre ([id number]) on 03/23/2025 8:46:46 AM GEMUSE 03/21/2025 11:4 7 PM EDT 03/23/2025 8:46 AM EDT Doyle DIEGO ECG ORDERABLES Final Resul t Performing Organization Address City/[facility]/ZIP Co de Phone Number GEMUSE * Troponin I high sensitivity (03/21/2025 11:39 PM EDT) [facility] High Sensitivity Troponin I 3 <=54 ng/L LAB CHEMISTRY METHOD 03/22/2025 12:59 AM EDT [facility] Blood Venous blood specimen / Unknown Venipuncture / Unknown 03/21/2025 11:39 PM EDT 03/22/2025 12:31 AM EDT Narrative [facility] - 03/22/2025 12:59 AM EDT High levels of biotin in samples may falsely decrease hsTroponin values. Use caution when interpreting hsTroponin results in patients taking biotin who exhibit renal impairment (eGFR <60) or in patients taking more than 20 mg/day of biotin. Doyle DIEGO LAB BLOOD ORDERABLES Final Result Performing Organization Address City/[facility]/ZIP Co de Phone Number [facility] [address] [place] [address], [place] [phone] * D-dimer, quantitative (03/21/2025 10:14 PM EDT) D-Dimer, Quant (D-DU) 193 <=230 ng/mL DDU LAB COAGULATION METHOD 03/21/2025 10:54 PM EDT [facility] Blood Venous blood specimen / Unknown Venipuncture / Unknown 03/21/2025 10:14 PM EDT 03/21/2025 10:40 PM EDT Narrative [facility] - 03/21/2025 10:54 PM EDT D-Dimer <230 ng/mL (D-Dimer units) is the threshold for exclusion of DVT/PE. D-Dimer may be elevated in: Critically ill, severely infected, trauma patients, DIC, acute CVA, acute OH, unstable angina, AF, old age, , and smoking. D-Dimer may be decreased with: Initiation of heparin therapy and oral anticoagulants. Dileep DIEGO LAB BLOOD ORDERABLES Final Result Performing Organization Address City/[facility]/ZIP Co de Phone Number [facility] [address] [place] [address], * APTT (03/21/2025 10:14 PM EDT) aPTT 35.6 24.1 - 39.3 sec LAB COAGULATION METHOD 03/21/2025 10:54 PM EDT [facility] Blood Venous blood specimen / Unknown Venipuncture / Unknown 03/21/2025 10:14 PM EDT 03/21/2025 10:40 PM EDT Dileep DIEGO LAB BLOOD ORDERABLES Final Result [facility] [address] [place] [address], [place] [phone] * Protime-INR (03/21/2025 10:14 PM EDT) [facility] Protime 11.6 10.6 - 13.9 sec LAB COAGULATION METHOD 03/21/2025 10:54 PM EDT [facility] INR 0.9 LAB COAGULATION METHOD 03/21/2025 10:54 PM EDT [facility] Blood Venous blood specimen / Unknown Venipuncture / Unknown 03/21/2025 10:14 PM EDT 03/21/2025 10:40 PM EDT us Dileep DIEGO LAB BLOOD ORDERABLES Final Result [facility] [address] [place] [address], * (ABNORMAL) CBC auto differential (03/21/2025 10:14 PM EDT) [facility] WBC 10.4 4.8 - 10.8 K/mcL LAB HEMETOLOGY METHOD 03/21/2025 10:48 PM EDT [facility] RBC 5.50(H) 3.80 - 4.80 M/mcL LAB HEMETOLOGY METHOD 03/21/2025 10:48 PM EDT [facility] Hemoglobin 15.1 11.5 - 16.0 g/dL LAB HEMETOLOGY METHOD 03/21/2025 10:48 PM EDT [facility] Hematocrit 47.8(H) 35.0 - 47.0 % LAB HEMETOLOGY METHOD 03/21/2025 10:48 PM EDT [facility] MCV 87.7 79.0 - 98.0 FL LAB HEMETOLOGY METHOD 03/21/2025 10:48 PM EDT [facility] MCH 27.7 27.0 - 32.0 pcg LAB HEMETOLOGY METHOD 03/21/2025 10:48 PM EDT [facility] MCHC 31.6(L) 32.0 - 37.0 g/dL LAB HEMETOLOGY METHOD 03/21/2025 10:48 PM EDT [facility] RDW 13.3 11.0 - 15.0 % LAB HEMETOLOGY METHOD 03/21/2025 10:48 PM EDT [facility] Platelets 290 130 - 400 K/mcL LAB HEMETOLOGY METHOD 03/21/2025 10:48 PM EDT [facility] MPV 10.2 7.0 - 11.0 FL LAB HEMETOLOGY METHOD 03/21/2025 10:48 PM EDT [facility] NRBC 0.0 <1.0 % LAB [facility] NR[facility] Absolute 0.00 <0.10 K/mcL LAB HEMETOLOGY METHOD 03/21/2025 10:48 PM [facility] Neutrophils Relative 58.8 % LAB HEMETOLOGY METHOD 03/21/2025 10:[facility] Lymphocytes Relative 30.5 % LAB HEMETOLOGY METHOD 03/21/2025 10:48 [facility] Monocytes Relative 9.1 % LAB HEMETOLOGY METHOD 03/21/2025 10:48 PM [facility] Eosinophils Relative 0.9 % LAB HEMETOLOGY METHOD 03/21/2025 10:48 PM EDT [facility] Basophils Relative 0.5 % LAB HEMETOLOGY METHOD 03/21/2025 10:48 PM EDT [facility] Immature Granulocytes Relative 0.2 % LAB HEMETOLOGY METHOD 03/21/2025 10:48 PM EDT [facility] Neutrophils Absolute 6.13 1.50 - 7.00 K/mcL LAB HEMETOLOGY METHOD 03/21/2025 10:48 PM EDT [facility] Lymphocytes Absolute 3.18 1.00 - 5.00 K/mcL LAB HEMETOLOGY METHOD 03/21/2025 10:48 PM EDT [facility] Monocytes Absolute 0.95 0.20 - 1.00 K/[facility] LAB HEMETOLOGY METHOD 03/21/2025 10:48 PM EDT [facility] Eosinophils Absolute 0.09 0.00 - 0.50 K/[facility] LAB HEMETOLOGY METHOD 03/21/2025 10:48 PM EDT [facility] Basophils Absolute 0.05 0.00 - 0.20 K/[facility] LAB HEMETOLOGY METHOD 03/21/2025 10:48 PM EDT [facility] Immature Granulocytes Absolute 0.02 0.00 - 0.03 K/[facility] LAB HEMETOLOGY METHOD 03/21/2025 10:48 PM EDT [facility] Blood Venous blood specimen / Unknown Venipuncture / Unknown 03/21/2025 10:14 PM EDT 03/21/2025 10:40 PM EDT Doyle DIEGO LAB BLOOD ORDERABLES Final Result [facility] [address] [place] [address], [place] [phone] * B-type natriuretic peptide (03/21/2025 10:14 PM EDT) BNP 18 <=100 pcg/mL LAB CHEMISTRY METHOD 03/21/2025 11:12 PM EDT [facility] Blood Venous blood specimen / Unknown Venipuncture / Unknown 03/21/2025 10:14 PM EDT 03/21/2025 10:40 PM EDT us Doyle DIEGO LAB BLOOD ORDERABLES Final Result Performing Organization Address City/[facility]/ZIP Co de Phone Number [facility] [address] [place] [address], [place] [phone] * (ABNORMAL) Magnesium (03/21/2025 10:14 PM EDT) Pathologist [facility] Magnesium 1.8(L) 1.9 - 2.6 mg/dL LAB CHEMISTRY METHOD 03/21/2025 11:09 PM EDT [facility] Blood Venous blood specimen / Unknown Venipuncture / Unknown 03/21/2025 10:14 PM EDT 03/21/2025 10:40 PM EDT Doyle DIEGO LAB BLOOD ORDERABLES Final Result Performing Organization Address [facility]/ZIP Co de Phone Number [facility] [address] [place] [address], [place] [phone] * Lipase (03/21/2025 10:14 PM EDT) [facility] Lipase 59 13 - 75 unit/L LAB CHEMISTRY METHOD 03/21/2025 11:09 PM EDT [facility] Blood Venous blood specimen / Unknown Venipuncture / Unknown 03/21/2025 10:14 PM EDT 03/21/2025 10:40 PM EDT Doyle DIEGO LAB BLOOD ORDERABLES Final Result Performing Organization Address [facility]/ZIP Co de Phone Number [facility] [address] [place] [address], [place] [phone] * (ABNORMAL) Comprehensive metabolic panel (03/21/2025 10:14 PM EDT) Pathologist [facility] Sodium 140 133 - 145 mmol/L LAB CHEMISTRY METHOD 03/21/2025 11:19 PM EDT [facility] Potassium 3.8 3.5 - 5.5 mmol/L LAB CHEMISTRY METHOD 03/21/2025 11:19 PM EDT [facility] Chloride 104 96 - 110 mmol/L LAB CHEMISTRY METHOD 03/21/2025 11:19 PM EDT [facility] CO2 30 21 - 32 mmol/L LAB CHEMISTRY METHOD 03/21/2025 11:19 PM [facility] Anion Gap 6 3 - 11 LAB CHEMISTRY METHOD 03/21/2025 11:19 PM [facility] Glucose 128(H) 70 - 100 mg/dL LAB CHEMISTRY METHOD 03/21/2025 11:19 PM [facility] BUN 19 5 - 25 mg/dL LAB CHEMISTRY METHOD 03/21/2025 11:19 PM [facility] Creatinine 0.74 0.50 - 1.10 mg/dL LAB CHEMISTRY METHOD 03/21/2025 11:19 PM [facility] eGFR 90 >=60 mL/min/1. 73m2 LAB CHEMISTRY METHOD 03/21/2025 11:19 PM [facility] Comment:Calculation based on the Chronic Kidney Disease Epidemiology Collaboration (CKD-EPI) equation refit without adjustment for race. BUN/Creatinine Ratio 25.7 LAB CHEMISTRY METHOD 03/21/2025 11:19 PM [facility] Calcium 11.0(H) 8.5 - 10.5 mg/dL LAB CHEMISTRY METHOD 03/21/2025 11:19 PM [facility] AST (SGOT) 15 10 - 42 unit/L LAB CHEMISTRY METHOD 03/21/2025 11:19 [facility] ALT (SGPT) 27 10 - 60 unit/L LAB CHEMISTRY METHOD 03/21/2025 11:19 PM [facility] Alkaline Phosphatase 124(H) 42 - 121 unit/L LAB CHEMISTRY METHOD 03/21/2025 11:19 PM [facility] Total Protein 6.6 6.0 - 8.0 g/dL LAB CHEMISTRY METHOD 03/21/2025 11:19 PM [facility] Albumin 3.8 3.2 - 5.0 g/dL LAB CHEMISTRY METHOD 03/21/2025 11:19 PM EDT [facility] Total Bilirubin 0.5 0.0 - 1.4 mg/dL LAB CHEMISTRY METHOD 03/21/2025 11:19 PM EDT [facility] Blood Venous blood specimen / Unknown Venipuncture / Unknown 03/21/2025 10:14 PM EDT 03/21/2025 10:40 PM EDT Doyle DIEGO LAB BLOOD ORDERABLES Final Result Performing Organization Address [facility] Co de Phone Number [facility] [address] [place] [address], [place] [phone] * Troponin I high sensitivity (03/21/2025 10:14 PM EDT) [facility] High Sensitivity Troponin I 3 <=54 ng/L LAB CHEMISTRY METHOD 03/21/2025 11:07 PM EDT [facility] Blood Venous blood specimen / Unknown Venipuncture / Unknown 03/21/2025 10:14 PM EDT 03/21/2025 10:40 PM EDT Narrative [facility] - 03/21/2025 11:07 PM EDT High levels of biotin in samples may falsely decrease hsTroponin values. Use caution when interpreting hsTroponin results in patients taking biotin who exhibit renal impairment (eGFR <60) or in patients taking more than 20 mg/day of biotin. Doyle DIEGO LAB BLOOD ORDERABLES Final Result Performing Organization Address [facility]/ZIP Co de Phone Number [facility] [address] [place] [address], [place] [phone] * XR Chest 2 Views (03/21/2025 10:06 PM EDT) Anatomical Region Laterality Modality Body Radiographic Natalie ging 03/22/2025 8:05 AM EDT Impressions 03/22/2025 8:06 AM EDT No acute findings. -------- FINAL REPORT -------- Dictated By: Tommy Pineda Dictated Date: 03/22/2025 08:05 ET Assigned Physician: Tommy Pineda Reviewed and Electronically Signed By: Tommy Pineda Signed Date: 03/22/2025 08:06 ET Workstation ID: [id number] Transcribed By: Self Edit Transcribed Date: 03/22/2025 08:05 ET Narrative 03/22/2025 8:06 AM EDT PROCEDURE: PA and lateral radiographs of the chest. HISTORY: chest pain. COMPARISON: 08/05/2017. FINDINGS: Lungs are mildly hyperinflated but clear. Pleural spaces, pulmonary vasculature, and cardiomediastinal contours are normal. Procedure Note Tommy Pineda MD - 03/22/2025 PROCEDURE: PA and lateral radiographs of the chest. HISTORY: chest pain. COMPARISON: 08/05/2017. FINDINGS: Lungs are mildly hyperinflated but clear. Pleural spaces, pulmonaryvasculature, and cardiomediastinal contours are normal. IMPRESSION: No acute findings. -------- FINAL REPORT -------- Dictated By: Tommy Pineda Dictated Date: 03/22/2025 08:05 ET Assigned Physician: Tommy Pineda Reviewed and Electronically Signed By: Tommy Pineda Signed Date: 03/22/2025 08:06 ET Workstation ID: [id number] Transcribed By: Self Edit Transcribed Date: 03/22/2025 08:05 ET Doyle DIEGO IMG XR PROCEDURES Final Res ult * ECG 12 lead (03/21/2025 7:52 PM EDT) Ventricular Rate ECG 67 BPM GEMUSE Atrial Rate 67 BPM GEMUSE P-R Interval 166 ms GEMUSE QRS Duration 88 ms GEMUSE Q-T Interval 400 ms GEMUSE QTc 422 ms GEMUSE P Wave [place] 62 degrees GEMUSE R [place] 41 degrees GEMUSE T [place] 50 degrees GEMUSE ECG Interpretation Normal sinus rhythm Normal ECG When compared with ECG of 21-NOV-2024 15:02, No significant change was found Confirmed by MD Menon Christopher ([id number]) on 03/23/2025 8:42:15 AM GEMUSE 03/21/2025 7:52 PM EDT 03/23/2025 8:42 AM EDT us Doyle DIEGO ECG ORDERABLES Final Resul t GEMUSE documented in this encounter Visit Diagnoses Diagnosis Chest pain, unspecified type- Primary Premature atrial contractions Supraventricular premature beats documented in this encounter Administered Medications Inactive Administered Medications - up to 3 most recent administrations Medication Order MAR Action Action Date Dose Rate Site ketorolac (TORADOL) injection 15 mg 15 mg, intravenous, Once, On 03/21/25 at 2013, For 1 dose Given 03/21/2025 11:02 PM EDT 15 mg documented in this encounter Active and Recently Administered Medications Times are shown in EDT. Scheduled Medication Order 03/20/2025 03/21/2025 03/22/2025 ketorolac (TORADOL) injection 15 mg (COMPLETED) 15 mg, intravenous, Once, On 03/21/25 at 2013, For 1 dose 2302 (Given - Provider: Xenia Fletcher RN) documented in this encounter Orders Medications Ordered That Darion ht Not Have Been Administered Count Last Ordered Date First Ordered Date ketorolac (TORADOL) injection 15 mg 1 03/21 documented in this encounter Care Teams Vegetable Scullion Relationship Specialty Start Date End Date Kelby Limon MD [address] [place] [address] PCP - General Internal Medicine 02/02/22 documented as of this encounter
[2025-03-26 13:17] LABS: Appearance Urine Cloudy; Glucose Urine UA Negative (Negative); PH 5.5 (5.0-9.0); Specific Gravity - Urine 1.020 (1.005-1.025); UMIC TRIGGER UA YES
--- OUTSIDE RECORDS SUMMARY | 2025-03-26 16:28 | XMS_ITS | Encounter Summary ---
Author Organization [facility] [place] [address] Care Team Providers Care Geophysicist Name Role Phone Kelby Limon MD Primary Care Provider [phone] Reason for Visit * Reason Onset Date Comments Hospital Follow-up 03/23/2025 Encounter Details Date Type Department Care Team (Late st Contact Info) Description 03/23/2025 Telephone [facility] - [facility] [address] [facility] [address] [place] [address] Cj Anderson MD [address] [facility] [address] [place] [address] Social History Tobacco Use Types Packs/Day Years [...] as of this encounter Progress Notes * Eli Acuna - 03/25/2025 3:51 PM EDT Spoke with the patient and scheduled for 03/30/25 with Mae Romero. * Itz Newsome - 03/23/2025 4:28 PM EDT Patient seen at [facility] for chest pain, discharged 03/22/25. documented in this encounter Plan of Treatment Upcoming Encounters Date Type Department Care Team (Late st Contact Info) Description 03/30/2025 8:10 AM EDT Office Visit [facility] - [address] [place] [phone] Mae Romero, DUSTIN [address] [place] [address] [place] [address] documented as of this encounter Visit Diagnoses Not on filedocumented in this encounter Care Teams Geophysicist Relationship Specialty Start Date End Date Kelby Limon MD [address] [place] [id number] PCP - General Internal Medicine 02/02/22 documented as of this encounter
--- OUTSIDE RECORDS SUMMARY | 2025-03-26 16:28 | XMS_ITS | Clinical Summary ---
Author Organization [address] Address [address] [place] [address] Phone Care Team Providers Care Utility Supervisor [employer] Name Role Phone Pcp, Does Not Have [...] age to complete this topic Insurance MEDICARE [id number] MEDICARE [id number] MEDICAID MEDICARE [id number] MEDICAID Care Teams Utility [employer] Relationship Specialty Start Date End Date Pcp, Does Not Have A PCP - General 12/18/20
--- OUTSIDE RECORDS SUMMARY | 2025-03-26 16:28 | XMS_ITS | Clinical Summary ---
Author Organization [employer] Address [address] [facility] [address] [place] [address] Care Team Providers Care Special Education Professor Name Role Phone Unavailable Primary Care Provider Unavailabl e Encounters Date Type Department Care Team Description 02/24/2025 2:55 PM EDT Immunization [facility] [address] [place] [address] Deanne Scales RN Encounter for vaccination; Encounter [...]
--- OUTSIDE RECORDS SUMMARY | 2025-03-26 16:28 | XMS_ITS | Clinical Summary ---
Author Organization [facility] Address [address] [place] [address] Phone Care Team Providers Care Environmental Planning Engineer Name Role Phone Kelby Limon MD Primary Care Provider [phone] Allergies Active Allergy Reactions Criticality Noted Date [...] Type Department Care Team Description 03/23/2025 Telephone [facility] - [facility] [address] [facility] [address] [place] [address] Cj Anderson MD 03/21/2025 10:36 PM EDT - 03/22/2025 1:43 AM EDT Emergency [facility] Emergency [address] [place] [address] Chest pain, unspecified type (Primary Dx); Premature atrial contractions Discharge Disposition: Home or Self Care 02/16/2025 Telephone [facility] - [address] [place] [address] Mae Romero NP 01/16/2025 9:43 AM EDT - 01/16/2025 11:59 PM EDT Hospital Encounter [facility] [address] [place] [address] Encounter for screening mammogram for breast cancer Discharge Disposition: Home or Self Care 01/16/2025 9:43 AM EDT - 01/16/2025 11:59 PM EDT Hospital Encounter [facility] Bone Density [address] [place] [phone] Age-related osteoporosis without current pathological fracture Discharge Disposition: Home or Self Care 01/15/2025 Telephone [facility] - [address] [facility] [address] [place] [address] Yamilex Maldonado MA from Last 3 Months Surgical History Surgery Date Site/Laterality Comments TOTAL KNEE ARTHROPLASTY PROCEDURE: HISTORICAL TOTAL KNEE REPLACE COLONOSCOPY 2018 PROCEDURE: HISTORICAL COLONOSCOPY OTHER SURGICAL HISTORY 07/18/2012 PROCEDURE: HISTORY OTHER; COMMENT: Bone density study, dual photon absorptiometry WRIST SURGERY PROCEDURE: HISTORICAL WRIST SURGERY SHOULDER SURGERY PROCEDURE: HISTORICAL SHOULDER SURGERY OTHER SURGICAL HISTORY PROCEDURE: [place] RAD ABDL HYSTERECTOMY W/BI PELVIC LMPHADENECTOMY OTHER [...] (HCC) Depression, major, in partia l remission ([facility]/HCC V24) DX:Depression, major, in par tial remission ([facility]) Esophageal reflux DX:Esophageal reflux Foot drop, right [...] 03/21/2025 7:42 PM EDT Plan of Treatment Upcoming Encounters Date Type Department Care Team ([facility] st Contact Info) Description 03/30/2025 8:10 AM EDT Office Visit [facility] - [facility] [address] [facility] [address] [place] [address] Mae Romero, DUSTIN [address] [place] [address] [place] [address] Health Maintenance Due Date Last Done Comments [...] Last 3 Months Results * ECG-Annotated (03/23/2025) us Provider Onbase ECG ORDERABLES Final Result * ECG 12 lead (03/21/2025 11:47 PM EDT) Only the most recent of2 resultswithin the time period is included. [facility] Ventricular Rate ECG 66 BPM GEMUSE Atrial Rate 68 BPM GEMUSE QRS Duration 90 ms GEMUSE Q-T Interval 412 ms GEMUSE QTc 431 ms GEMUSE P Wave [place] 51 degrees GEMUSE R [place] 41 degrees GEMUSE T [place] 58 degrees GEMUSE ECG Interpretation Sinus rhythm with Premature supraventricular complexes Abnormal ECG When compared with ECG of 21-MAR-2025 19:52, Premature supraventricular complexes are now Present Confirmed by MD Sinan, Emre ([id number]) on 03/23/2025 8:46:46 AM GEMUSE 03/21/2025 11:4 7 PM EDT 03/23/2025 8:46 AM EDT us Doyle DIEGO ECG ORDERABLES Final Resul t GEMUSE * Troponin I high sensitivity (03/21/2025 11:39 PM EDT) Only the most recent of2 resultswithin the time period is included. [facility] High Sensitivity Troponin I 3 <=54 ng/L LAB CHEMISTRY METHOD 03/22/2025 12:59 AM EDT [facility] Blood Venous blood specimen / Unknown Venipuncture / Unknown 03/21/2025 11:39 PM EDT 03/22/2025 12:31 AM EDT Narrative [facility] - 03/22/2025 12:59 AM EDT High levels of biotin in samples may falsely decrease hsTroponin values. Use caution when interpreting hsTroponin results in patients taking biotin who exhibit renal impairment (eGFR <60) or in patients taking more than 20 mg/day of biotin. us Doyle DIEGO LAB BLOOD ORDERABLES Final Result [facility] [address] [place] [address], * (ABNORMAL) CBC auto differential (03/21/2025 10:14 PM EDT) [facility] WBC 10.4 4.8 - 10.8 K/mcL LAB HEMETOLOGY METHOD 03/21/2025 10:48 PM EDT [facility] RBC 5.50(H) 3.80 - 4.80 M/mcL LAB HEMETOLOGY METHOD 03/21/2025 10:48 PM EDT [facility] Hemoglobin 15.1 11.5 - 16.0 g/dL LAB HEMETOLOGY METHOD 03/21/2025 10:48 PM EDT [facility] Hematocrit 47.8(H) 35.0 - 47.0 % LAB HEMETOLOGY METHOD 03/21/2025 10:48 PM EDT [facility] MCV 87.7 79.0 - 98.0 FL LAB HEMETOLOGY METHOD 03/21/2025 10:48 PM EDT [facility] MCH 27.7 27.0 - 32.0 pcg LAB HEMETOLOGY METHOD 03/21/2025 10:48 PM EDT [facility] MCHC 31.6(L) 32.0 - 37.0 g/dL LAB HEMETOLOGY METHOD 03/21/2025 10:48 PM EDT [facility] RDW 13.3 11.0 - 15.0 % LAB HEMETOLOGY METHOD 03/21/2025 10:48 PM EDT [facility] Platelets 290 130 - 400 K/mcL LAB HEMETOLOGY METHOD 03/21/2025 10:48 PM EDT [facility] MPV 10.2 7.0 - 11.0 FL LAB HEMETOLOGY METHOD 03/21/2025 10:48 PM EDT [facility] NRBC 0.0 <1.0 % LAB HEMETOLOGY METHOD 03/21/2025 10:48 PM EDT [facility] NRBC Absolute 0.00 <0.10 K/mcL LAB HEMETOLOGY METHOD 03/21/2025 10:48 PM EDT [facility] Neutrophils Relative 58.8 % LAB HEMETOLOGY METHOD 03/21/2025 10:48 PM EDT [facility] Lymphocytes Relative 30.5 % LAB HEMETOLOGY METHOD 03/21/2025 10:48 PM EDT [facility] Monocytes Relative 9.1 % LAB HEMETOLOGY METHOD 03/21/2025 10:48 PM EDT [facility] Eosinophils Relative 0.9 % LAB HEMETOLOGY METHOD 03/21/2025 10:48 PM EDT [facility] Basophils Relative 0.5 % LAB HEMETOLOGY METHOD 03/21/2025 10:48 PM EDT [facility] Immature Granulocytes Relative 0.2 % LAB HEMETOLOGY METHOD 03/21/2025 10:48 PM EDT [facility] Neutrophils Absolute 6.13 1.50 - 7.00 K/mcL LAB HEMETOLOGY METHOD 03/21/2025 10:48 PM EDT [facility] Lymphocytes Absolute 3.18 1.00 - 5.00 K/mcL LAB HEMETOLOGY METHOD 03/21/2025 10:48 PM EDT [facility] Monocytes Absolute 0.95 0.20 - 1.00 K/[facility] LAB HEMETOLOGY METHOD 03/21/2025 10:48 PM EDT [facility] Eosinophils Absolute 0.09 0.00 - 0.50 K/[facility] LAB HEMETOLOGY METHOD 03/21/2025 10:48 PM EDT [facility] Basophils Absolute 0.05 0.00 - 0.20 K/[facility] LAB HEMETOLOGY METHOD 03/21/2025 10:48 PM EDT [facility] Immature Granulocytes Absolute 0.02 0.00 - 0.03 K/[facility] LAB HEMETOLOGY METHOD 03/21/2025 10:48 PM EDT [facility] Blood Venous blood specimen / Unknown Venipuncture / Unknown 03/21/2025 10:14 PM EDT 03/21/2025 10:40 PM EDT Doyle DIEGO LAB BLOOD ORDERABLES Final Result Performing Organization Address City/[facility]/ZIP Co de Phone Number [facility] [address] [place] [address], * APTT (03/21/2025 10:14 PM EDT) aPTT 35.6 24.1 - 39.3 sec LAB COAGULATION METHOD 03/21/2025 10:54 PM EDT [facility] Blood Venous blood specimen / Unknown Venipuncture / Unknown 03/21/2025 10:14 PM EDT 03/21/2025 10:40 PM EDT Dileep DIEGO LAB BLOOD ORDERABLES Final Result [facility] [address] [place] [address], [place] [phone] * Protime-INR (03/21/2025 10:14 PM EDT) [facility] Protime 11.6 10.6 - 13.9 sec LAB COAGULATION METHOD 03/21/2025 10:54 PM EDT [facility] INR 0.9 LAB COAGULATION METHOD 03/21/2025 10:54 PM EDT [facility] Blood Venous blood specimen / Unknown Venipuncture / Unknown 03/21/2025 10:14 PM EDT 03/21/2025 10:40 PM EDT us Dileep DIEGO LAB BLOOD ORDERABLES Final Result Performing Organization Address [facility] [[email or web address]] de Phone Number [facility] [address] [place] [address], [place] [phone] * D-dimer, quantitative (03/21/2025 10:14 PM EDT) [facility] D-Dimer, Quant (D-DU) 193 <=230 ng/mL DDU LAB COAGULATION METHOD 03/21/2025 10:54 PM EDT [facility] Blood Venous blood specimen / Unknown Venipuncture / Unknown 03/21/2025 10:14 PM EDT 03/21/2025 10:40 PM EDT Narrative [facility] - 03/21/2025 10:54 PM EDT D-Dimer <230 ng/mL (D-Dimer units) is the threshold for exclusion of DVT/PE. D-Dimer may be elevated in: Critically ill, severely infected, trauma patients, DIC, acute CVA, acute NH, unstable angina, AF, old age, , and smoking. D-Dimer may be decreased with: Initiation of heparin therapy and oral anticoagulants. us Dileep DIEGO LAB BLOOD ORDERABLES Final Result Performing Organization Address [facility]/ZIP Co de Phone Number [facility] [address] [place] [address], [place] [phone] * B-type natriuretic peptide (03/21/2025 10:14 PM EDT) BNP 18 <=100 pcg/mL LAB CHEMISTRY METHOD 03/21/2025 11:12 PM EDT [facility] Blood Venous blood specimen / Unknown Venipuncture / Unknown 03/21/2025 10:14 PM EDT 03/21/2025 10:40 PM EDT Doyle DIEGO LAB BLOOD ORDERABLES Final Result Performing Organization Address [facility] [[email or web address]] de Phone Number [facility] [address] [place] [address], * (ABNORMAL) Magnesium (03/21/2025 10:14 PM EDT) [facility] Magnesium 1.8(L) 1.9 - 2.6 mg/dL LAB CHEMISTRY METHOD 03/21/2025 11:09 PM EDT [facility] Blood Venous blood specimen / Unknown Venipuncture / Unknown 03/21/2025 10:14 PM EDT 03/21/2025 10:40 PM EDT us Doyle DIEGO LAB BLOOD ORDERABLES Final Result Performing Organization Address [facility]/ZIP Co de Phone Number [facility] [address] [place] [address], [place] [phone] * Lipase (03/21/2025 10:14 PM EDT) Pathologist [facility] Lipase 59 13 - 75 unit/L LAB CHEMISTRY METHOD 03/21/2025 11:09 PM EDT [facility] Blood Venous blood specimen / Unknown Venipuncture / Unknown 03/21/2025 10:14 PM EDT 03/21/2025 10:40 PM EDT us Doyle DIEGO LAB BLOOD ORDERABLES Final Result [facility] [address] [place] [address], [place] [phone] * (ABNORMAL) Comprehensive metabolic panel (03/21/2025 10:14 PM EDT) Sodium 140 133 - 145 mmol/L LAB CHEMISTRY METHOD 03/21/2025 11:19 PM [facility] Potassium 3.8 3.5 - 5.5 mmol/L LAB CHEMISTRY METHOD 03/21/2025 11:19 PM [facility] Chloride 104 96 - 110 mmol/L LAB CHEMISTRY METHOD 03/21/2025 11:19 PM [facility] CO2 30 21 - 32 mmol/L LAB CHEMISTRY METHOD 03/21/2025 11:19 PM [facility] Anion Gap 6 3 - 11 LAB CHEMISTRY METHOD 03/21/2025 11:19 PM [facility] Glucose 128(H) 70 - 100 mg/dL LAB CHEMISTRY METHOD 03/21/2025 11:19 PM [facility] BUN 19 5 - 25 mg/dL LAB CHEMISTRY METHOD 03/21/2025 11:19 PM [facility] Creatinine 0.74 0.50 - 1.10 mg/dL LAB CHEMISTRY METHOD 03/21/2025 11:19 PM [facility] eGFR 90 >=60 mL/min/1. 73m2 LAB CHEMISTRY METHOD 03/21/2025 11:19 PM [facility] Comment:Calculation based on the Chronic Kidney Disease Epidemiology Collaboration (CKD-EPI) equation refit without adjustment for race. BUN/Creatinine Ratio 25.7 LAB CHEMISTRY METHOD 03/21/2025 11:19 PM [facility] Calcium 11.0(H) 8.5 - 10.5 mg/dL LAB CHEMISTRY METHOD 03/21/2025 11:19 PM EDT [facility] AST (SGOT) 15 10 - 42 unit/L LAB CHEMISTRY METHOD 03/21/2025 11:19 PM EDT [facility] ALT (SGPT) 27 10 - 60 unit/L LAB CHEMISTRY METHOD 03/21/2025 11:19 PM EDT [facility] Alkaline Phosphatase 124(H) 42 - 121 unit/L LAB CHEMISTRY METHOD 03/21/2025 11:19 PM EDT [facility] Total Protein 6.6 6.0 - 8.0 g/dL LAB CHEMISTRY METHOD 03/21/2025 11:19 PM EDT [facility] Albumin 3.8 3.2 - 5.0 g/dL LAB CHEMISTRY METHOD 03/21/2025 11:19 PM EDT [facility] Total Bilirubin 0.5 0.0 - 1.4 mg/dL LAB CHEMISTRY METHOD 03/21/2025 11:19 PM EDT [facility] Blood Venous blood specimen / Unknown Venipuncture / Unknown 03/21/2025 10:14 PM EDT 03/21/2025 10:40 PM EDT us Doyle DIEGO LAB BLOOD ORDERABLES Final Result [facility] [address] [place] [address], * XR Chest 2 Views (03/21/2025 10:06 PM EDT) Anatomical Region Laterality Modality Body Radiographic Natalie ging 03/22/2025 8:05 AM EDT Impressions 03/22/2025 8:06 AM EDT No acute findings. -------- FINAL REPORT -------- Dictated By: Tommy Pineda Dictated Date: 03/22/2025 08:05 ET Assigned Physician: Tommy Pineda Reviewed and Electronically Signed By: Tommy Pineda Signed Date: 03/22/2025 08:06 ET Workstation ID: [id number] Transcribed By: Self Edit Transcribed Date: 03/22/2025 [...] Signed Date: 03/22/2025 08:06 ET Workstation ID: [id number] Transcribed By: Self Edit Transcribed Date: 03/22/2025 [...] probability of hip fracture of 0.9%. Code 42017 -------- FINAL REPORT -------- Dictated By: Russel Tavarez Dictated Date: 01/16/2025 10:28 ET Assigned Physician: Russel Tavarez Reviewed and Electronically Signed By: Russel Tavarez Signed Date: 01/16/2025 10:30 ET Workstation ID: [id number] Transcribed By: Self Edit Transcribed Date: 01/16/2025 [...] density of the femurs bilaterally is 0.848 gm/[id number] is 84% of that of young normals [...] probability of hip fracture of 0.9%. Code 50432 -------- FINAL REPORT -------- Dictated By: Russel Tavarez Dictated Date: 01/16/2025 10:28 ET Assigned Physician: Russel Tavarez Reviewed and Electronically Signed By: Russel Tavarez Signed Date: 01/16/2025 10:30 ET Workstation ID: [id number] Transcribed By: Self Edit Transcribed Date: 01/16/2025 10:28 ET us Larry Guo MD IM DXA PROCEDURES Final Result * MG Mammo [...] year. [facility]amm[facility] location[facility] [address], [address] -------- FINAL REPORT -------- Dictated By: True Norwood Dictated Date: 01/16/2025 10:54 ET Assigned Physician: True Norwood Reviewed and Electronically Signed By: True Norwood Signed Date: 01/16/2025 11:19 ET Workstation ID: [id number] Transcribed By: Self Edit Transcribed Date: 01/16/2025 10:55 ET Narrative 01/16/2025 11:19 AM EDT EXAM: SCREENING MAMMOGRAPHY, BILATERAL HISTORY: SCREENING. No additional history. COMPARISON: 01/16/24, 01/12/23, 08/17/21, 08/05/20 TECHNIQUE: Synthesized CC and MLO projections of each breast. Tomosynthesis of each breast in the CC and MLO projections. ADDITIONAL IMAGING: None Computer-aided detection was employed with the [employer] AI 3-D. TISSUE DENSITY: The breasts are [...] None Computer-aided detection was employed with the [employer] AI 3-D. TISSUE DENSITY: The breasts are [...] year. [facility]amm[facility] location: [facility] [address], [address] -------- FINAL REPORT -------- Dictated By: True oNrwood Dictated Date: 01/16/2025 10:54 ET Assigned Physician: True Norwood Reviewed and Electronically Signed By: True Norwood Signed Date: 01/16/2025 11:19 ET Workstation ID: [id number] Transcribed By: Self Edit Transcribed Date: 01/16/2025 [...] 1:06 AM EDT Performed at: 01 - [facility] [address] [id number] Power Shovel Mechanic: Aylin Wood MD, Phone: [phone] us Mae Romero NP LAB BLOOD ORDERABLES Final Resu lt [facility] 1 from Last 3 Months Insurance MEDICARE MEDICAID - [place] Care Teams Environmental Planning Engineer Relationship Specialty Start Date End Date Kelby Limon MD [address] [place] [address] PCP - General Internal Medicine 02/02/22
== END 2025-03-26 13:06 | disposition home or self-care (01) ==
LOC: HO.LNP 13:05
PROVIDERS: Visit Provider Urology
DX: N32.81 Overactive bladder (principal)
CPT/HCPCS: 81001; 87086; 87088; 87186